=== PATIENT | female | born 1930 | race Asian ===

== ENCOUNTER 2016-06-30 11:17 | Inpatient (IN) | payer MEDICARE, OTHER ==
[2016-06-30] VITALS (8 sets, daily range): BP systolic 87–112; BP diastolic 49–81; PULSE 70–110; RESP 14–23; O2SAT 92–98
[~2016-06-30] VITALS: Ht 152.4 cm; Wt 52.8 kg
[~2016-06-30 11:17] MED LIST: ACET325T51 PO; ATOR20TA PO; Aspirin-Expunged Drug, Do Not Renew! PO; METO-272 PO
--- NOTE | 2016-06-30 11:17 | ED.REPORT ---
HPI-General Illness Date of Service Jun 30, 2016 ED Provider: Dr. Crenshaw Pt is an 85 year old female with a history of CVA last August, and a permeant indwelling Robbins catheter who presents to the ED with EMS with concerns for altered mental status that began earlier today. Per EMS she is conversive at baseline, but was found unresponsive today. Her catheter bag appears cloudy and there are feces coming out of the front of her diaper, as well as covering her extremities. She remains unresponsive. Nursing Notes Stated Complaint: SEPSIS Chief Complaint: AMS Nursing Notes Reviewed: Yes Allergies: Coded Allergies: No Known Allergies (Verified , 06/30/16) Scheduled Atorvastatin (Lipitor) 20 Mg Tablet 20 MG PO DAILY Calcium Polycarbophil (Fiber-Caps) 625 Mg Tablet 625 MG PO QAM Carboxymethylcellulos/Glycerin (Refresh Optive Gel Eye Drops) 1 %-0.9 % Drops.gel 1 GTT OP DAILY Metoprolol Tartrate (Metoprolol Tartrate) 50 Mg Tablet 50 MG PO BID Scheduled PRN Acetaminophen (Acetaminophen) 325 Mg Tablet 650 MG PO Q4H PRN PRN For Pain Diclofenac Gel (Voltaren Gel) 100 Gm Tube 1 APPLIC TOP QID PRN PRN For Pain General Time Seen by MD: 11:17 Chief Complaint Altered mental status Hx Obtained From: EMS Arrived By: Ambulance Sudden in Onset?: Yes Onset Occurred: Onset unknown Symptom Duration: Since onset Similar Sx Previous: Yes Past Medical History Past Medical History Reports: Cancer, Hypertension, Stroke Past Surgical History Colon resection Smoking History Never Smoker Social History Alcohol Use: Denies alcohol use Other Social History: Ambulatory Status Wheelchair Review of Systems Unable to Obtain ROS Mental status Full Review of Systems Constitutional: Reports: Fever Psychiatric: Reports: Change mental status Complete sys rev & neg: except as marked. Physical Exam Vital Signs Vital Signs Date Time Temp Pulse Resp B/P Pulse Ox O2 Delivery O2 Flow Rate FiO2 06/30/16 16:39 89 14 104/81 94 Room Air 06/30/16 13:25 37 21 93/57 98 Nasal Cannula 2 06/30/16 12:59 94 23 91/49 95 Nasal Cannula 2 06/30/16 12:31 93 20 87/60 97 Nasal Cannula 06/30/16 12:04 100 21 89/58 96 Nasal Cannula 3 06/30/16 11:18 39.3 110 22 111/66 92 Room Air Initial VS: Reviewed Head / Eyes: Atraumatic, Normocephalic, PERRL Neck: Supple, Non-tender, Full range of motion Alertness: Positive: Unresponsive Appearance / Presentation: Positive: Cachectic, Frail No fixed gaze Feces on her hand and coming out of the front of her diaper Indwelling Robbins catheter with dark brown, thick urine present in bag Febrile Contractures Diaphoretic Altered 3x 4cm Sacral decubitus ulcer, stage 3. Malodorous with purulent discharge and stool surrounding wound dressing ENT: Atraumatic, Airway patent, Pharynx NL Mouth: Positive: Mucous membranes dry Respiratory / Chest: Atraumatic, No respiratory distress, No rales, No rhonchi Tachypnic Cardiovascular: Regular rhythm, Heart sounds NL Heart Rate / Rhythm: Positive: Tachycardia Interpretation & Diagnostics Lab Results Interpretation Result Diagram: 06/30/16 1206 06/30/16 1151 Test 06/30/16 11:32 06/30/16 11:51 06/30/16 12:06 Urine Color Yellow (YELLOW) Urine Appearance Cloudy (CLEAR,HAZY) Urine pH 8.0 (5.0-8.0) Urine Specific [place] 1.010 (1.003-1.035) Urine Protein 30mg/dL (NEG,TRACE) Urine Glucose (UA) Negativemg/dL (NEGATIVE) Urine Ketones Negativemg/dL (NEGATIVE) Urine Occult Blood Trace (NEGATIVE) Urine Nitrite Positive (NEGATIVE) Urine Bilirubin Negative (NEGATIVE) Urine Urobilinogen Normalmg/dL (NORMAL) Urine Leukocyte Esterase Large (NEGATIVE) Urine RBC 3-10/hpf (0-2) Urine WBC >50/hpf (0-5) Urine Epithelial Cells Few/hpf (NONE-MOD) Urine Crystals None seen (NONE SEEN) Urine Bacteria Many/hpf (NONE-FEW) Urine Hyaline Casts None/lpf (NONE) Urine Granular Casts None seen (NONE SEEN) Urine Waxy Casts None seen (NONE SEEN) Urine Red Blood Cell Casts None seen (NONE SEEN) Urine White Blood Cell Casts None seen (NONE SEEN) Urine Mucus None seen (None Seen) Urine Trichomonas None seen (NONE SEEN) Urine Yeast None (NONE SEEN) Urinalysis Comment None Urine Culture Reflexed Indicated Sodium Level 143mEq/L (134-144) Potassium Level 3.4mEq/L (3.5-5.2) Chloride Level 104mEq/L (97-108) Carbon Dioxide Level 20mmol/L (18-29) Blood Urea Nitrogen 25mg/dL (8-27) Creatinine 1.37mg/dL (0.57-1.00) Estimat Glomerular Filtration Rate 53mL/min (>59) Glucose Level 128mg/dL (60-99) Calcium Level 8.0mg/dL (8.5-10.1) Magnesium Level 1.4mg/dL (1.6-2.6) Total Bilirubin 0.6mg/dL (0.0-1.2) Aspartate Amino Transf (AST/SGOT) 25U/L (0-50) Alanine Aminotransferase (ALT/SGPT) 10U/L (0-32) Alkaline Phosphatase 90U/L (25-165) Troponin T 0.024ug/L (0.0-0.011) Total Protein 5.9g/dL (6.4-8.4) Albumin 2.2g/dL (3.4-5.0) White Blood Count 27.1th/mm3 (3.8-10.1) Red Blood Count 4.03mil/mm3 (3.90-5.20) Hemoglobin 11.5g/dL (12.0-15.6) Hematocrit 35.0% (35.0-46.0) Mean Corpuscular Volume 86.8fL (81-100) Mean Corpuscular Hemoglobin 28.5pg (27.0-35.0) Mean Corpuscular Hemoglobin Concent 32.9% (32.0-37.0) Red Cell Distribution Width 15.9% (12.3-15.4) Platelet Count 357bil/L (150-400) Neutrophils (%) (Auto) 90% (40-74) Lymphocytes (%) (Auto) 1% (14-46) Monocytes (%) (Auto) 2% (4-12) Eosinophils (%) (Auto) 0% (0-5) Basophils (%) (Auto) 0% (0-3) Band Neutrophils % 7% (1-5) Procalcitonin 108.92ng/mL (See Comment) X-Ray Chest Interpretation Chest Xray Interpretation: IMPRESSION: Decreased lung volumes. Increased degree of right minor fissural thickening may suggest evolving congestive heart failure. Dictated by: Russel Timmons M.D. on 06/30/2016 at 12:22 Interpretation / Wet Read by: Interpret - Radiologist CT Abd / Pelvis Interpretation IMPRESSION: 1. Soft tissue ulcer lies superficial to the posterior sacrum and does not appear to extend to the bony cortex. If there is persistent clinical suspicion for early sacral osteomyelitis, pre- and post contrast bony pelvis MRI may be considered for more sensitive evaluation. 2. Large amount of stool within the rectal vault may suggest fecal impaction. 3. Bilateral L5 pars defects, with grade 1 L5-S1 spondylolisthesis. 4. Nonacute right obturator ring healed fractures, age indeterminate moderate T12 vertebral body anterior wedge compression fracture, and nonacute mild L4 anterior wedge compression fracture. Dictated by: Russel Timmons M.D. on 06/30/2016 at 14:10 Interpretation / Wet Read by: Interpret - Radiologist Re-Eval/Medical Decision Med Decision/Clinical Course Severe sepsis from UTI with acute kidney injury and mental status changes, additionally has a sense of constipation and sacral decubitus ulcers with stool in them. Vancomycin and Zosyn are given. 3 L normal saline bolus. Blood pressure has improved after this. Patient appears profoundly dehydrated, stroke was considered however it seems that she has a nonfocal neurologic exam in terms of new neurologic deficits and after fluid resuscitation has become more awake and alert. Source of Hx: Old records, EMS, Family Time of Eval: 11:59 Re-Evaluation/Progress Note: Pt is rechecked, she remains unresponsive. Her is present, and reports that she first became unresponsive this morning. Time of Eval: 12:29 Re-Evaluation/Progress Note: Pt is rechecked, she is becoming increasingly responsive. She turns her head and acknowledges me when her name is said. Her eyes open spontaneously. Time of Eval: 12:55 Re-Evaluation/Progress Note: Pt is rechecked, her vitals remain stable. Her is informed of her labs and imaging results and the plan to transer her to an acute care facility. He understands and agrees, all questions are addressed. Time of Eval: 14:31 Re-Evaluation/Progress Note: Pt is rechecked and her is informed of the lack of beds at [facility]. He understands and agrees, all questions are addressed. Time of Eval: 16:33 Re-Evaluation/Progress Note: Pt is rechecked, is informed of the plan to admit her to the hospital at this time. All questions are addressed. Consultation #1: Call Returned at: 15:20 Note: Spoke with Dr. Guzman from [facility] who reports that she is not able to accept this patient and this time. Consultation #2: Referral / Consult Name: Tim Carnes MD Consulted With: Hospitalist Call Returned at: 16:33 Car Sweeper: Will see patient, Agrees with plan, Accepts admit Counseled Regarding: Diagnosis, Lab results, Need for admission Discharge & Departure Primary Impression: Septic shock Additional Impressions: UTI (urinary tract infection) Urinary tract infection type: site unspecified Hematuria presence: without hematuria Qualified Code: N39.0 - Urinary tract infection, site not specified Sacral decubitus ulcer Pressure ulcer stage: stage IV Qualified Code: L89.154 - Pressure ulcer of sacral region, stage 4 Fecal retention Constipation type: unspecified constipation type Qualified Code: K59.00 - Constipation, unspecified Hypomagnesemia Disposition: ADMITTED TO HOSPITAL Discharge Condition All VS Reviewed: Yes Condition: Stable Referrals: Cesar Rush MD (PCP) Crit Care Except Billable Proc Time Spent: 75-104 minutes Services Performed: Patient management by me, Time spent at bedside, Reviewing test results, Reviewing imaging, Discussing patient care, Documentation in record, Time with fam/surrogate, Other Critical Care Notes: See MDM Scribe Attestation Portions of this note were transcribed by Monik Matthews. I, Dr. Crenshaw personally performed the history, physical exam and medical decision-making; I reviewed and confirmed the accuracy of the information in the transcribed note. Signed by: Nick Coffey, 06/30/2016 [id number]. copies to: Cesar Rush MDMilad Mata Jun 30, 2016 11:17 KIM MATTHEWS Jun 30, 2016 11:30
[2016-06-30] MEDS ORDERED: 0.9% Sodium Chloride 1,000 ML IV ONE (11:24)
[2016-06-30] MEDS ORDERED: 0.9% Sodium Chloride 500 ML IV ONE ×2 (11:25→14:35)
[2016-06-30] MEDS ORDERED: Piperacillin-Tazo 3.375 Gm Inj 3.375 GM in Dextrose 5% Minibag Plus 50 ML IV ONE (12:00)
[2016-06-30 12:07] LABS: APPEARANCE,URINE CLOUDY (CLEAR,HAZY); COLOR,URINE YELLOW (YELLOW)
[2016-06-30 12:08] LABS: OCCULT BLOOD,URINE TRACE (NEGATIVE); UROBILINOGEN,URINE NORMAL (NORMAL)
[2016-06-30 12:14] LABS: EOSINOPHILS % (AUTO) 0 % (0-5); Mean Corpuscular Hemoglobin 28.5 pg (27.0-35.0); Mean Corpuscular Volume 86.8 fL (81-100); Platelet Count 357 bil/L (150-400)
--- NOTE | 2016-06-30 12:24 | DRSVH ---
PROCEDURE: X-RAY CHEST ONE VIEW, PORTABLE ([id number]) INDICATIONS: 85 year-old female with hypoxia and fevers. TECHNIQUE: One view of the chest was acquired. COMPARISON: [facility], CR, XR CHEST 1VW (PORTABLE), 05/25/2016, 12:41. [facility], CR, XR CHEST 2VW, 05/16/2016, 14:54. [facility], CR, XR CHEST 1VW (PORTABLE), 09/05/2015, 17:09. FINDINGS: Surgical changes and devices: None. Lungs and pleura: No pleural effusions or pneumothorax. Lungs are clear, with increased degree of r ight minor fissural thickening. Lung volumes are decreased, with bronchovascular crowding. Mediastinum: Mediastinal contours appear normal. Heart size is normal. There is aortic atheroscler osis. Bones and chest wall: No suspicious bony lesions. Overlying soft tissues appear unremarkable. IMPRESSION: Decreased lung volumes. Increased degree of right minor fissural thickening may suggest e volving congestive heart failure. Dictated by: Russel Timmons M.D. on 06/30/2016 at 12:22 Approved by: Russel Timmons M.D. on 06/30/2016 at 12:22
[2016-06-30] MEDS ORDERED: Vancomycin 1 Gm/200 mL D5W Premix IV ONE (12:40)
[2016-06-30 12:43] LABS: TROPONIN T 0.024 ug/L (0.0-0.011)
[2016-06-30 12:48] LABS: BASOPHILS % (AUTO) 0 % (0-3); MONOCYTES % (AUTO) 2 % (4-12); NEUTROPHILS % (AUTO) 90 % (40-74)
[2016-06-30 12:54] LABS: Magnesium 1.4 mg/dL (1.6-2.6)
[2016-06-30] MEDS ORDERED: Sodium Chloride LOK Flush 10 mL Syringe IVFLUSH PRN ×2 (12:55)
[2016-06-30] MEDS: 0.9% Sodium Chloride 1,000 ML IV SCH ×3 (13:24→18:23)
--- NOTE | 2016-06-30 14:11 | DRSVH ---
PROCEDURE: CT ABDOMEN AND PELVIS WITHOUT CONTRAST ([id number]) INDICATIONS: 85 year-old female with urinary tract infection, sepsis, and sacral decubitus ulcer. TECHNIQUE: Noncontrast 5 mm thick sections acquired from the diaphragms to the symphysis. 5 mm coronal and sagi ttal reformats were then performed. For radiation dose reduction, the following was used: automated exposure control, adjustment of mA and/or kV according to patient size. COMPARISON: None. FINDINGS: Image quality: Excellent. ABDOMEN: Lung bases: There is mild cardiomegaly. There is scattered bibasilar atelectasis. Solid organs: Liver and spleen are normal in size. Gallbladder wall thickness is normal. Pancreas is normal in contours. No adrenal nodules. Kidneys are normal in size, without hydronephrosis or ne phrolithiasis. Peritoneum and bowel: Unenhanced bowel loops demonstrate normal wall thickness and caliber. Right l ower quadrant surgical clips are present, presumably from remote appendectomy. There is moderate stoo l throughout the distal colon, with large amount of stool in the rectal vault. Rectosigmoid bowel danny stomotic yoav are present. No free fluid or air. Nodes and vessels: No retroperitoneal or mesenteric adenopathy by size criteria. Aorta and inferior vena cava are normal in caliber, with mild aortoiliac atherosclerosis. Miscellaneous: No ventral hernias. PELVIS: Genitourinary: The bladder is decompressed by a Robbins catheter. Uterus is normal in size. Postmenopau neha ovaries are unable to be seen in the absence of contrast. Miscellaneous: No inguinal hernias or adenopathy. On axial image 67, 2.4 cm wide soft tissue ulcer l ies superficial to the posterior sacrum. Bones: No suspicious bony lesions. No jhon bony destruction or erosions. Nonacute right obturator r ing fractures are present. There is age indeterminate moderate T12 vertebral body anterior wedge comp ression fracture, and mild nonacute L4 anterior wedge compression fracture. Bilateral L5 pars defects are present, with grade 1 L5-S1 spondylolisthesis. Coronal images demonstrate mild lumbar spine levo scoliosis. IMPRESSION: 1. Soft tissue ulcer lies superficial to the posterior sacrum and does not appear to extend to the jina ny cortex. If there is persistent clinical suspicion for early sacral osteomyelitis, pre- and post co ntrast bony pelvis MRI may be considered for more sensitive evaluation. 2. Large amount of stool within the rectal vault may suggest fecal impaction. 3. Bilateral L5 pars defects, with grade 1 L5-S1 spondylolisthesis. 4. Nonacute right obturator ring healed fractures, age indeterminate moderate T12 vertebral body ante rior wedge compression fracture, and nonacute mild L4 anterior wedge compression fracture. Dictated by: Russel Timmons M.D. on 06/30/2016 at 14:10 Approved by: Russel Timmons M.D. on 06/30/2016 at 14:10
[2016-06-30] MEDS ORDERED: Magnesium Sulf 4 Gm/100 mL H2O 4 GM in IV Premix 1 EACH IV ONE (15:05)
--- NOTE | 2016-06-30 15:41 | DRSVH ---
PROCEDURE: X-RAY PICC LINE PLACEMENT BY NURSE ([id number]) INDICATIONS: 85 year-old female in septic shock with sacral decubitus ulcer. COMPARISON: None. FINDINGS: PICC was placed by the intravenous therapy team from the left side. Fluoroscopic spot petty m demonstrates tip of PICC in the lower superior vena cava. IMPRESSION: Tip of PICC lies within the lower superior vena cava. Dictated by: Russel Timmons M.D. on 06/30/2016 at 15:39 Approved by: Russel Timmons M.D. on 06/30/2016 at 15:39
[2016-06-30] MEDS ORDERED: Norepineph 8,000 mCg/250 mL NS 8,000 MCG in IV Premix 1 EACH IV SCH (16:25)
[2016-06-30] MEDS ORDERED: Ondansetron 2 mg/mL 2 mL Inj IVPUSH PRN (16:40)
[2016-06-30] MEDS ORDERED: Alum-Mag Hydrox-Simeth 30 mL Suspension PO PRN ×2 (16:40→17:25)
[2016-06-30] MEDS ORDERED: DICL100G8 TOP (17:03)
[2016-06-30] MEDS ORDERED: METO50TA3 PO (17:03)
[2016-06-30] MEDS ORDERED: CARB10DR2 OP (17:03)
[2016-06-30] MEDS ORDERED: CALC625T83 PO (17:03)
[2016-06-30] MEDS ORDERED: Norepineph 8,000 mCg/250 mL NS 8,000 MCG in IV Premix 1 EACH IV PRN (17:22)
[2016-06-30] MEDS ORDERED: Polyethylene Glycol (PEG) 17 Gm Powder PO PRN (17:25)
[2016-06-30] MEDS ORDERED: Senna-Docusate 8.6-50 mg Tablet PO PRN (17:25)
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
--- NOTE | 2016-06-30 18:27 | ABG ---
DateTimeAnalyzed 18:22:00 -_ pH ____7.436 - 7.350 7.450 pCO2 ___29.5__ -mmHg 35.0 45.0 pO2 ___75.9__ -mmHg 70.0 100 HCO3- ___19.5__ -mmol/L 22.0 26.0 ABE ___-3.5__ -mmol/L -2.0 2.0 tHb ____9.1__ -g/dL 12.0 18.0 O2Hb ___93.6__ -% 95.0 COHb ____0.9__ -% 1.5 MetHb ____1.0__ -% 0.4 1.5 sO2 ___95.4__ -% FIO2 ___21.0__ -% Drawn By gj - Date/Time Notified____ 18:27:00 -_ Liter_Flow ____2.5__ -L/min Oxygen Device 1 __CANNULA - Notified By gj - Notified Whom ____LEAKE - B 760 -mmHg tO2 ___12.0__ -Vol% [place] test _Positive -
[2016-06-30] MEDS: Linezolid Inj 600 MG in IV Premix 1 EACH IV SCH (18:40)
[2016-06-30] MEDS ORDERED: 0.9% Sodium Chloride 500 ML IV PRN (19:40)
[2016-06-30] MEDS ORDERED: levoFLOXacin Inj 750 MG in IV Premix 1 EACH IV SCH (20:00)
[2016-06-30] MEDS: Acetaminophen IV 1,000 MG in IV Premix 1 EACH IV PRN (20:16)
--- NOTE | 2016-06-30 20:33 | NUR ---
CCU admission note Pt arrived from ER to CCU # 2020 approx at 1745. Pt is drowsy but arousable to verbal stimuli. Pt is hypotensive. MAP 58-60. MAP goal per Dr. Murray >65. IV boluses initiated. CVP =2-3. Levophed gtt initiated to maintain MAP >65. UOP = 400. Pt had moderate soft formed stool. Skin: PU wounds noted (pre existing wound). Wound in sacrum area is open approx size of golf ball. Wound was covered with C/D/I Mepilex Border dressing. Also PU wound to right hip noted with skin abrasion to right hip. Also both were covered with Mepilex Border dressing. Pt is bed bound and spouse is her caregiver with home health visits. Pt was covered in feces upon arrival to ER (Per ER repot). Seb and both aware of pts leaving situation. Will consult director of social services in am. Spouse and daughter at the bedside providing support and comfort.
[2016-06-30] MEDS ORDERED: KCl 40 mEq/100 mL Premix (K 3 - 3.7 & Creat < 2) IV ONE (21:10)
[2016-06-30] MEDS: Meropenem Inj 1,000 MG in IV Premix 1 EACH IV SCH (21:56)
[2016-06-30] MEDS: Heparin 5,000 Unit/mL Inj SUBQ SCH (23:57)
[2016-07-01] VITALS (10 sets, daily range): BP systolic 106–133; BP diastolic 57–88; PULSE 69–92; RESP 16–21; O2SAT 96–100
[2016-07-01] MEDS: 0.9% Sodium Chloride 1,000 ML IV SCH (01:52)
[2016-07-01 03:34] LABS: BASOPHILS % (AUTO) 0.1 % (0-3); EOSINOPHILS % (AUTO) 0.1 % (0-5); MONOCYTES % (AUTO) 2.5 % (4-12); Mean Corpuscular Hemoglobin 27.9 pg (27.0-35.0); Mean Corpuscular Volume 86.8 fL (81-100); NEUTROPHILS % (AUTO) 92.8 % (40-74); Platelet Count 295 bil/L (150-400)
[2016-07-01 03:50] LABS: INR 1.38 ratio
[2016-07-01 04:12] LABS: Magnesium 2.2 mg/dL (1.6-2.6); Phosphorus 1.8 mg/dL (2.5-4.9)
[2016-07-01] MEDS ORDERED: Calcium GLUCO 10% (Gm) 1 Gm/10 mL 50 mL Inj IV ONE (04:45)
[2016-07-01] MEDS ORDERED: Calcium GLUCO 10% (Gm) Inj 2 GM in Dextrose 5% 100 ML IV ONE (04:45)
[2016-07-01] MEDS: Dextrose 5% 0.45% NaCl 1,000 ML IV SCH ×3 (04:50→15:50)
[2016-07-01] MEDS ORDERED: Potassium Phos (mMol) Inj 15 MMOL in Dextrose 5% 250 ML IV ONE (04:50)
[2016-07-01] MEDS: Linezolid Inj 600 MG in IV Premix 1 EACH IV SCH (05:31)
--- NOTE | 2016-07-01 05:34 | NUR ---
cvp/pressor/neuro pt moaning with mumbled words at beginning of shift, moaning with turning, iv tylenol given and effective for generalized aches and pains, at approx [id number] pt starting to wake up more and speech much clearer, pt oriented to self and place, not year, pt answers appropriately to assessment questions, heydi weakly, pt tends to turn to left side, pt's arms and legs have weak movement but pt tends to keep them curled up, full bed bath given, pt on p500 MALLORY bed, scd's on, pt turned routinely, cvp =8-9, able to wean levophed gtt down from 0.8mcg/kg/min to 0.3mcg/kg/min, good uop per f/c, home catheter replaced at beginning of shift, pt incontinent of sml brown bm's, checked and changed regularly, right hip and sacrum with pressure sores, each swabbed with swabs specified by lab, swabs labeled and sent to lab, mepilex dressings on buttocks and right hip, right hip pressure sore approximately a size of a quarter, sacral wound approximately 2 inches long but approximately 1.5 inches wide--also has an odor, sml amount of serousang drainage, aware of wounds/dressings/assessment, wound care ordered for today, calmoseptine cream applied to josé luis area, pt npo, bt present, no c/o nv, tele- sr, denies cp ls- clear t/o, denies sob, pt on two liters o2 per nc t/o night with sats upper 90's until this am pt requesting o2 off and sats still upper 90's on ra, resp rate upper teens to low 20's, left picc intact, aware this am of pt's bc results and what antibiotics pt has had, aware of am lab results, see orders, ivf changed to d5 1/2 at 100ml/hr, calcium rider given, k/phos rider given, pt's and daughter here upon admit, pt's went home after pt settled and stable, pt's daughter left little while after pt's , pt's daughter expressed concern about pt's heavy amount of care at home, she expressed concern that pt needed more care then her father is able to give the pt at home, will pass info on this am, see ccu flow sheet, plan:bp support/sepsis treatment,
[2016-07-01] MEDS: Heparin 5,000 Unit/mL Inj SUBQ SCH ×2 (08:22→17:04)
[2016-07-01] MEDS: Acetaminophen IV 1,000 MG in IV Premix 1 EACH IV PRN (08:23)
[2016-07-01] MEDS ORDERED: Vancomycin Dose per Pharmacist XX SCH (08:30)
[2016-07-01] MEDS: Meropenem Inj 1,000 MG in IV Premix 1 EACH IV SCH ×2 (09:15→23:10)
[2016-07-01 10:03] LABS: Phosphorus 2.8 mg/dL (2.5-4.9)
--- NOTE | 2016-07-01 11:22 | PCM.PNMED ---
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 emergency department via EMS for unresponsiveness and obtunded. Hospital day #2 Overnight: She was weaned off of norepinephrine. Telemetry overnight: Sinus rhythm, heart rate 80-90's, PAC's and PVC's. The patient is resting in bed comfortably and in no acute distress. She is alert and conversant. She denies headache, cough, chest pain, shortness of breath, nausea, vomiting, fever, chills, constipation or diarrhea. The patient has been voiding via Robbins catheter with good urine output. The patient is eliminating without difficulty. She is essentially bedbound. Physical therapy has been ordered and will see the patient today. . Exam Vital Signs Vital Sign - Last Date Time Temp Pulse Resp B/P Pulse Ox O2 Delivery O2 Flow Rate FiO2 07/01/16 08:30 Supplement Oxygen 07/01/16 08:30 36.7 88 20 108/82 96 07/01/16 04:00 2.00 Intake and Output 06/30/16 06/30/16 07/01/16 Cumulative From/Thru 15:00 23:00 07:00 06/30/16 11:18 - 07/01/16 06:22 Intake Total 4000 ml 2400 ml 3998 ml 72261 ml Output Total 1200 ml 750 ml 1950 ml Balance 4000 ml 1200 ml 3248 ml 8448 ml Intake Oral 0 ml 0 ml IV Total 4000 ml 2400 ml 3998 ml 53676 ml Output Urine Total 1200 ml 750 ml 1950 ml # Bowel Movements 2 3 5 Exam General: Elderly thin cachectic female lying in bed and in no acute distress HEENT: Normocephalic, atraumatic. External ears without defect. Pupils equal, round, and reactive to light. Anicteric sclerae. Conjunctivitis. Mucus membranes dry. Dentures. Neck: No lymphadenopathy or thyromegaly. Cardiovascular: Regular rate and rhythm with no murmurs, rubs, or gallops appreciated. Pulmonary: Clear to auscultation bilaterally with no crackles, wheezes, or rhonchi. Normal respiratory effort with no use of accessory muscles. Abdomen: Soft, suprapubic tenderness, nondistended, bowel tones hypoactive. No hepatosplenomegaly or masses appreciated. Genitourinary: Chronic indwelling Robbins catheter changed (06/30/15). Extremities: No clubbing, cyanosis, or edema. Skin: Normal temperature and texture; Dry skin. Chronic decubitus ulcers with dressing covering. Neurological: Alert but somewhat confused. . IVs and Medications Medications Reviewed: Medications were reviewed in detail Lab and Diagnostics Item Value Date Time Procalcitonin 108.92 ng/mL 06/30/16 1206 Procalcitonin 86.92 ng/mL 07/01/16 0310 Item Value Date Time Magnesium Level 2.2 mg/dL 07/01/16 0310 Total Bilirubin 0.5 mg/dL 07/01/16 0310 Aspartate Amino Transf (AST/SGOT) 26 U/L 07/01/16 0310 Alanine Aminotransferase (ALT/SGPT) 8 U/L 07/01/16 0310 Alkaline Phosphatase 82 U/L 07/01/16 0310 Total Protein 4.8 g/dL L 07/01/16 0310 Albumin 1.8 g/dL L 07/01/16 0310 Prealbumin 6 mg/dL L 06/30/16 1151 Item Value Date Time Phosphorus Level 1.8 mg/dL L 07/01/16 0310 Phosphorus Level 2.8 mg/dL 07/01/16 0930 Item Value Date Time Calcium Level 6.6 mg/dL *L 07/01/16 0310 Calcium Level 7.3 mg/dL L 07/01/16 0930 Result Diagram: 07/01/16 0310 07/01/16 0930 Microbiology Blood culture 2 preliminarily growing gram variable rods with identification and sensitivities to follow. Urine culture preliminarily growing gram-negative rods with identification and sensitivities to follow. Influenza screen negative. MRSA screen pending. Wound culture and Gram stain pending. . X-Rays, CTs and MRIs X-RAY CHEST ONE VIEW, PORTABLE IMPRESSION: Decreased lung volumes. Increased degree of right minor fissural thickening may suggest evolving congestive heart failure. Dictated by: Russel Timmons M.D. on 06/30/2016 at 12:22 Approved by: Russel Timmons M.D. on 06/30/2016 at 12:22 CT ABDOMEN AND PELVIS WITHOUT CONTRAST IMPRESSION: 1. Soft tissue ulcer lies superficial to the posterior sacrum and does not appear to extend to the bony cortex. If there is persistent clinical suspicion for early sacral osteomyelitis, pre- and post contrast bony pelvis MRI may be considered for more sensitive evaluation. 2. Large amount of stool within the rectal vault may suggest fecal impaction. 3. Bilateral L5 pars defects, with grade 1 L5-S1 spondylolisthesis. 4. Nonacute right obturator ring healed fractures, age indeterminate moderate T12 vertebral body anterior wedge compression fracture, and nonacute mild L4 anterior wedge compression fracture. Dictated by: Russel Timmons M.D. on 06/30/2016 at 14:10 Approved by: Russel Timmons M.D. on 06/30/2016 at 14:10 . 12-lead ECG EKG: Sinus rhythm, heart rate 72, left axis, prolonged QTC otherwise normal intervals, early R-wave progression, no pathological Q waves or acute ischemic changes such as ST elevation or depression. . 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 emergency department via EMS for unresponsiveness and obtunded. Hospital day #2 1. Severe sepsis with shock, present on admission. Resolved. - SIRS criteria met: Febrile, temperature 39.3. Tachycardic, pulse 110. Tachypneic, respiratory rate 22. Lactic acid 4.3. Source urine and skin with acute kidney injury. - Early goal-directed therapy met including IV fluid resuscitation and broad- spectrum antibiotic coverage as below problem #2. - See plan below. 2. Acute bacteremia, present on admission. Active. - Likely secondary to acute urinary tract infection and/or chronic stage IV decubitus ulcer. - Continue with linezolid 600 mg every 12 hours , meropenem 1g every 8 hours, and levofloxacin 750 mg every 24 hours pending ID recs. Received vancomycin 1 and Zosyn 1 in the ED. - Consulted ID, Dr. Calderón, who will see her today. We appreciate his time and recommendations. 3. Chronic decubitus ulcers, present on admission. Active. - CT abdomen and pelvis without contrast revealed soft tissue ulcer lies superficial to the posterior sacrum and does not appear to extend to the bony cortex, as above. 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 Several other ulcers with dressings in place. - Antibiotics as below in problem #4 and pending ID recs. - Wound culture and Gram stain obtained and pending. - Consulted wound care. We appreciate their time and recommendations. - Consulted ID, Dr. Calderón, who will see her today. We appreciate his time and recommendations. - Consulted surgery, Dr. Linton, who will see the patient today. We appreciate his time and recommendations. 4. Acute UTI, secondary to infected chronic indwelling Robbins catheter, present on admission. Active. - Patient presented obtunded and encephalopathic. - Patient was hypotensive and responded to fluid resuscitation. Norepinephrine was initiated for pressure support last night 1999 and was discontinued at 0500. - Pro-calcitonin 108.92. We will continue to trend. - Lactic acid initially elevated at 4.3. - Leukocytosis of 27.1 with bandemia. Continue to monitor daily. - Urinalysis preliminarily growing gram-negative rods with identification and sensitivities to follow. - Blood cultures x 2 preliminarily growing gram variable rods with identification and sensitivities to follow. - Started with linezolid 600 mg every 12 hours , meropenem 1g every 8 hours, and levofloxacin 750 mg every 24 hours. Received vancomycin 1 and Zosyn 1 in the ED. - Replaced chronic indwelling Robbins catheter with new catheter with date and time marked. 5. 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 Active. - Ordered arboriculturist consultation. - Ordered physical therapy consultation. - Continue to encourage PO intake. - Start vitamin daily. - Poor wound healing, specifically sacral decubitus stage IV likely requiring debridement. 6. Acute kidney injury, present on admission. Resolved. - Likely secondary to prerenal azotemia and UTI. - Continue IV fluids with NS at 100 mL/hr. - Avoid nephrotoxic agents. - Continue to monitor creatinine and urine output daily. 7. Multiple electrolyte abnormalities, present on admission. Active. - Patient received magnesium 4 g IV 1, KCl 40 mEQ x1, KPO4 15 mmol x1. 8. Acute encephalopathy, secondary to acute infection, present on admission. Resolved. - Secondary to infection. Patient has no history of seizures and there was no recent trauma. - ABG was unrevealing. 9. Fecal impaction, acuity unknown, present on admission. Resolved. - CT abdomen and pelvis shows moderate amount of stool in the rectal vault likely indicative of fecal impaction, as above. - Patient spontaneously had several BM throughout the night. Chronic problems: Hypertension, chronic. - Continue metoprolol tartrate 25 mg twice a day. Hyperlipidemia, chronic. - Continue atorvastatin 20 mg daily at bedtime. CVA with residual left-sided deficit, chronic. - Ordered speech therapy and physical therapy who will see the patient today. History of colon cancer status post colon resection. Presumed stable. PRN antiemetics: Zofran and Maalox. PRN bowel regimen: Senna and MiraLAX. PRN analgesics: Tylenol Patient is admitted under inpatient status with expected length of stay greater than 2 midnights due to severity of presenting symptoms, risk of adverse event, and complexity of treatment plan. . VTE Mechanical Devices: Intermittant Pneumatic CD Attending Statement The patient was seen and examined together with Dr. Murray on 07-01-16 and I agree with the history, exam and plan as outlined in the note above. Vy Murray DO Jul 01, 2016 11:22 Tim Carnes MD Jul 02, 2016 16:54
--- NOTE | 2016-07-01 12:11 | NUR ---
Palliative Care Palliative Care received verbal order from Dr Murray 07/01/16 to assist with goals of care. 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 She was admitted 06/30/16 for unresponsiveness and obtunded. Cornel Serna () [phone], Isabell Mott (daughter) [phone] Palliative Care will see patient 07/02/16. Santa Tsai
--- NOTE | 2016-07-01 13:40 | CONS ---
[address] [address] CONSULTATION REPORT PATIENT: RONNA MENDEZ : 1930 MR#: [id number] ADMIT: 06/30/2016 JOB ID: [id number] DATE OF SERVICE: 07/01/2016 INFECTIOUS DISEASE CONSULTATION: I thank Dr. Murray for this timely consult. DATE OF SERVICE: REASON FOR CONSULTATION: Septic shock secondary to gram-negative bacteremia in a patient with profound malnutrition, debility and decubitus ulcers. HISTORY OF PRESENT ILLNESS: The patient is an unfortunate 85-year-old woman who has been in failing health for quite some time secondary to multiple medical problems. In August of this year, she suffered a cerebrovascular accident and spent considerable time in a retirement facility. She apparently was doing fairly well but she and her decided that she should come home and in March this year she left the retirement facility and returned to the family home where she lives with her very elderly and also quite debilitated . According to the daughter who was in the room this morning when we examined the patient, since she came home in March she has had a tremendous weight loss associated with being essentially bed-bound and the development of decubitus ulcers. The overall situation seemed to be deteriorating and her father was unable to provide the turning and other frequent care needed for such an ill patient but the Home Health care was apparently quite inconsistent and there were not others available to shrimp picker these tasks as needed. In any event, yesterday the patient was admitted with fever, diminished mental status and leukocytosis. It was unclear if she was septic from either an infected decubitus ulcer or possibly urinary source as she has also had a Robbins catheter over the past several weeks. Since her admission yesterday, the patient has been vigorously hydrated and given appropriate antibiotics. With this regimen she has improved considerably with improvement in her mental status as well as her overall hemodynamics. ID consultation is requested regarding her high-grade bacteremia and to help understand the source of this infection. PAST MEDICAL HISTORY: 1. History of cerebrovascular accident August 2015. Note that this cerebrovascular accident was initially evaluated in our ED before she was discharged and it was found to be an acute cerebellar hemorrhage. It was near the midline. 2. History of colon cancer with resection. 3. Chronic indwelling Robbins for at least the last couple months. 4. Hyperlipidemia. 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 She currently lives at home with her , but as noted, recently resided in a retirement facility until March. She is a nonsmoker, nondrinker. FAMILY HISTORY: Positive for gastric carcinoma and suicide. REVIEW OF SYSTEMS: Is a little bit difficult as the patient's Israeli is not completely fluent, but she denies headaches, sore throat, significant cough, shortness of breath, chest pain, nausea, vomiting, diarrhea or dysuria. The patient actually denies pain at the site of her decubs as well. PHYSICAL EXAMINATION: Reveals a very chronically ill and debilitated appearing woman. Her current temperature 36.7, pulse 88, respiratory rate 20, blood pressure 108/82. She is not on vasopressor agents and she is saturating reasonably well on nasal oxygen. When first admitted yesterday around noon, her temperature was 39.3, though she has been afebrile ever since. Her current BMI is 22, and her weight 52 kg. The patient is alert and able to give limited amounts of history, though as mentioned, her Israeli is not perfect despite her long residence in the [facility]. Examination of the head reveals no evidence of trauma. The eyes are without conjunctivitis or scleral icterus. Oral cavity essentially benign. Neck without notable adenopathy. Lungs fairly clear though the patient is not taking deep breaths. Cardiac tones 2/6 murmur heard best in the aortic area. Abdomen soft and nontender without organomegaly. She has a Robbins which is chronic. Her dressings were removed and her wounds carefully inspected. On the more lateral aspect of the right buttock, she has two stage 2 decubitus ulcers which do not appear to be infected. In the mid line coccygeal area, there is a deeper stage 3 ulcer with some slough and some areas of foul odor. This was cultured and it was noted with the probe tip that there was some undermining of this ulcer. The extremities are somewhat wasted, but no obvious skin breakdown. The heels were carefully inspected and there are no ulcerations though there is some bogginess over the heels bilaterally. The patient does not have peripheral edema. It appears she has been nonambulatory for a period of time. LABORATORIES: Include a white count 28,000 with left shift. Creatinine 0.43. LFTs are normal. Procalcitonin was an amazing 111 on admission. Today it is 87. Urinalysis was packed with white cells. The urine and blood are growing a non lactose staffing branch manager organism which is indole negative meaning it is not E. coli. A hip culture was just sent. A MRSA screen is pending and a rapid flu screen negative. IMAGING: Includes an abdominal pelvic CT scan which showed a great deal of stool due to fecal impaction. The decubitus ulcer on the coccyx is seen. It does not appear to extend into the bone. Also noted, of interest, are vertebral body compression fractures at T12 and L4. The chest x-ray showed decreased lung volumes and possible mild CHF. IMPRESSION: This is a difficult case of a woman who about nine months ago had a cerebrovascular accident. It sounds as though since that time she has become increasingly debilitated and has spent a considerable period in a SNF before her took her home in March. He has been unable to provide the necessary level of care it sounds like, because of his many medical problems and inability to do heavy lifting or turn her. Having spent much of the time in bed and apparently on her right side, she has developed multiple decubitus ulcers including one which is more or less in the midline and is certainly stage 3 and bordering on a stage 4 ulcer. This ulcer appears to me to be minimally infected as I do not see a great deal of purulence or odor, but there is certainly a possibility it is infected. It seems more likely her sepsis syndrome is due to the positive blood and urine cultures and is related to her indwelling Robbins. Her overall nutrition seems extremely poor and it would appear that the patient's overall health is failing. If she is to improve and survive all this, it would be necessary for her get into an environment where she can have frequent position changes, excellent wound management and much improved nutrition. The other option, of course, would be to consider hospice at this point. RECOMMENDATIONS: 1. Will stop other antibiotics and continue with meropenem alone for the gram-negative rods found in the blood and the urine. 2. I would strongly consider a General Surgery consult to see if the sacral decubiti need to be debrided. 3. The wound management team has been consulted and I completely agree. 4. ID will continue to closely follow with you. 5. This case discussed in detail at the bedside with the daughter as well as with the nurse. Thank you very much for this timely consult.
[2016-07-01] MEDS ORDERED: Potassium Chloride 40 mEq/100 mL Premix IV ONE ×2 (13:51→14:47)
--- NOTE | 2016-07-01 14:25 | NUR ---
Evaluation completed. Please go to "Notes" then click on "Assessments and Notes" (bottom left corner of screen). Then select appropriate discipline tab on top of screen.
[2016-07-01] MEDS: Artificial Tears 15 mL Ophthalmic Solution BOTH_EYES SCH (14:53)
--- NOTE | 2016-07-01 14:54 | NUR ---
P: Alteration in Neuro status I: Pt more awake and alert and oriented. PT had pt up to bedside to christinee. Swallow evaluation done. Stim diet, crushed meds and ice chips. Wound care here and dressings changed. Coccyx culture sent. Incontinent of BM x 3. Turned Q 2 hours from side to side. P500 bed. Left PICC patent with IV fluid infusing without difficulty. K-rider 80 meqs infusing per order. Family at bedside. Updated family on pt's condition and plan of care. Room air with sats stable VSS. NSR. E: Stable S: Frequent rounding. Family at bedside.
--- NOTE | 2016-07-01 14:57 | NUR ---
Wound Care Wound evaluation order received, pt seen at bedside. 85 yo female admitted with Septic shock secondary to gram-negative bacteremia, patient is also with profound malnutrition, debility and decubitus ulcers. Patient had been seen multiple times at the wound center since her last hospital admission. Today she presents with a stage 4 pressure injury of her sacrum measuring 5.7 cm x 3.5 cm x 0.6 cm, currently bone is covered but the ligaments are visible in the granulation bed., wound is undermined about 1.5 cm circumferentially, no tunneling, no necrotic tissue, drainage is moderate and serous. Redressed this wound with Aquacel Ag and mepilex adhesive foam. There is a healing stage 3 Pressure injury at her right hip which measures 1.4 cm x 2 cm x 0.1 cm and a superficial stage 2 at her hip just above the other approx 1 cm in diameter. These were dressed with mepilex adhesive foam dressings. Pt is in sidelying, of note patient was incontinent of stool during assessment, will need dressings changed on a PRN basis for soiling. I know that last hospitalization wanted to take patient home with home health services, recommend SNF on discharge if family accepting.
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
--- NOTE | 2016-07-01 21:11 | CONS ---
[address] [address] CONSULTATION REPORT PATIENT: RONNA MENDEZ : 1930 MR#: [id number] ADMIT: 06/30/2016 JOB ID: [id number] DATE OF SERVICE: 07/01/2016 CHIEF COMPLAINT AND INDICATION: Dr. Murray has asked me to see this 85-year-old woman regarding pressure sores on her sacrum. The patient was admitted on the 2nd, yesterday evening, with pressure sores. 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 She has been [facility] and is currently in the hospital and was seen earlier today by the product marketing specialist with dressing changes applied. As well, within the past 24 hours she was seen in consultation by Dr. Calderón who recommended a general surgery evaluation for consideration of debridement of her sacral pressure sore. PAST MEDICAL HISTORY: As above. History of colon cancer status post resection 2004, history of SBO, hyperlipidemia, osteoarthritis. MEDICATIONS: See med list. This includes metoprolol, atorvastatin, acetaminophen and calcium. ALLERGIES: No known allergies. SOCIAL HISTORY: Negative tobacco. Negative daily alcohol. She is seen at the bedside with her and they reportedly have been for over 50 years. Her is quite interested in taking her home and feels convinced that he can help her improve her nutritional status at home more than can be done at the hospital or at the intermediate facility. Notably, he appears to be relatively frail, using oxygen as he ambulates. REVIEW OF SYSTEMS: Per admission history and physical. PHYSICAL EXAMINATION: Temperature is 37, pulse is 84, blood pressure is 133/83. She is conversant and friendly, eating dinner with the help of the aide when I have come by to see her. I have not performed any other examination partly because she is eating dinner and, as well, I have reviewed the notes from the principal technical specialist today that describe her wounds as stage 4 on the sacrum with covered bone and visible granulation in the bed with some minimal wound undermining but no tunneling and no necrotic tissue with serous drainage as well as a healing stage 3 pressure injury on her right hip and a superficial stage 2 at her hip, all of which were dressed and felt not to require operative drainage. IMAGING: I reviewed the CT scan of the abdomen and pelvis from June 30 and see that there are soft tissue ulcers in the sacral area but see no sign of abscess or necrotic tissue or gas that would suggest a need for moving ahead with operative debridement. LABS: Her white count is 27.8 from early this morning. Her potassium is 2.9. Lactic acid was 4.3 on admission yesterday but down to 1.1 early this morning. Procalcitonin has dropped from 108 to 86.9. IMPRESSION AND PLAN: This 85-year-old woman was admitted with sepsis likely from her urinary tract infection with a chronic pressure sore that has been closely followed by our [facility] and was seen earlier today with a dressing placed by our principal technical specialist. Based on his evaluation and my review of the CT, I do not think that this chronic pressure sore requires operative debridement urgently, and I will discuss the case with him tomorrow and try to see the wound within the next 24-48 hours with the principal technical specialist at the time of scheduled dressing change.
[2016-07-02] VITALS (10 sets, daily range): BP systolic 109–129; BP diastolic 69–80; PULSE 69–93; RESP 16–28; O2SAT 94–98
[2016-07-02] MEDS: Heparin 5,000 Unit/mL Inj SUBQ SCH ×4 (00:49→23:56)
[2016-07-02] MEDS: Dextrose 5% 0.45% NaCl 1,000 ML IV SCH ×3 (02:45→22:43)
[2016-07-02 04:21] LABS: BASOPHILS % (AUTO) 0.1 % (0-3); EOSINOPHILS % (AUTO) 2.3 % (0-5); MONOCYTES % (AUTO) 3.6 % (4-12); Mean Corpuscular Hemoglobin 27.7 pg (27.0-35.0); Mean Corpuscular Volume 87.9 fL (81-100); NEUTROPHILS % (AUTO) 89.2 % (40-74); Platelet Count 211 bil/L (150-400)
[2016-07-02 04:42] LABS: TROPONIN T 0.028 ug/L (0.0-0.011)
[2016-07-02 04:52] LABS: Magnesium 1.7 mg/dL (1.6-2.6); Phosphorus 1.4 mg/dL (2.5-4.9)
[2016-07-02] MEDS ORDERED: Potassium Phos (mEq) Inj 40 MEQ in Dextrose 5% 500 ML IV ONE (05:05)
--- NOTE | 2016-07-02 05:45 | NUR ---
potassium/phos pts potassium and phos were low this morning, 3.4/1.4, pt is on repletion protocol for potassium/mag, called and he order K/phos IV rider which is hung and running at 63.6cc/hr for 8 hours.
--- NOTE | 2016-07-02 05:47 | NUR ---
loose stools pt having 3 loose incontinent stools this shift,
[2016-07-02] MEDS ORDERED: Albuterol HFA 60 Puff 8 Gm Inhaler INHALATION PRN (09:40)
[2016-07-02] MEDS: Albuterol-Ipratropium 3 mL Inhalation Solution NEB SCH ×3 (10:05→21:33)
--- NOTE | 2016-07-02 10:18 | PROG NOTE ---
[address] [address] PROGRESS NOTE PATIENT: RONNA MENDEZ : 1930 MR#: [id number] ADMIT: 06/30/2016 JOB ID: [id number] DATE: 07/02/2016 INFECTIOUS DISEASE FOLLOWUP NOTE: REASON FOR FOLLOWUP: Complicated urinary tract infection with high-grade bacteremia with multi-drug resistant proteus. INTERVAL HISTORY: Overnight, the patient has felt a little bit better. She denies fevers or chills. She was able to eat a little bit of breakfast. This case was reviewed with the patient's daughter who is at the bedside. PHYSICAL EXAMINATION: Temperature 36.8, and the patient has been afebrile since two days ago when she was admitted with a temperature greater than 39 degrees. Pulse 76, respiratory rate 18, blood pressure 126/80, saturating well on room air. Examination of the mental status reveals she is awake, alert this morning, and smiling. Oral cavity without notable abnormalities. The mucous membranes are dry. Lungs with wheezing bilaterally, though no rales are heard in the lower lung bryan but upper airway wheezing is noted. Cardiac tones without change. Abdomen benign. LABORATORIES: Include white count, which has dropped from 28,000 down to 16,000, still with left shift, 89% polys. Creatinine 0.34. Procalcitonin this morning 50, down from 109 two days ago. Urinalysis had heavy pyuria, and both urine and blood have grown a rather resistant Proteus mirabilis. This is resistant to first-generation cephalosporins, Unasyn, quinolones, gentamicin, tobramycin and trimethoprim/sulfamethoxazole. It is, fortunately susceptible, to the carbapenems. The cultures from the decubitus ulcer have grown Staphylococcus aureus, and are also growing a gram-negative. We do not yet have susceptibilities for the Staph aureus. IMPRESSION: This is a malnourished patient who was admitted with a stage 3 decubitus ulcer, as well as high-grade, bacteremic, complicated proteus urinary tract infection. She is improving on appropriate antibiotics, which up until now have included meropenem. As we do not know the nature of the gram-negative, we are concerned about possible resistance. It does hospitalist nocturnist physician that this is quite a resistant organism but it is sensitive to ertapenem, which is a little bit narrower spectrum carbapenem than meropenem. RECOMMENDATIONS: 1. Will discontinue meropenem. 2. Will start the patient on ertapenem. 3. We await the cultures from the decubitus ulcer. 4. The input from Surgery on the decubitus ulcer was noted, and obviously, the patient is going to require continued aggressive care in a rehab or detention facility when she has some more improvement with respect to her urinary tract infection. I would anticipate a total course of meropenem combined with ertapenem for about 10 days.
[2016-07-02] MEDS ORDERED: Furosemide 10 mg/mL 2 mL Inj IVPUSH ONE (10:30)
[2016-07-02] MEDS ORDERED: Albuterol 2.5 mg/3 mL Inhalation Solution NEB PRN (11:05)
[2016-07-02] MEDS: Artificial Tears 15 mL Ophthalmic Solution BOTH_EYES SCH (11:31)
[2016-07-02] MEDS: Ertapenem Inj 1,000 MG in 0.9% Sodium Chloride 50 ML IV SCH (11:32)
--- NOTE | 2016-07-02 12:23 | PCM.PNSURG ---
Subjective Date of Service: Jul 02, 2016 Date of Service: Jul 02, 2016 Visit Information: Reason for Visit Septic Shock Date of Admission: Jun 30, 2016 at 16:44 Hospital Day #3 Subjective: Patient seen in conjunction with Gold from the wound therapy department. Objective Vital Sign- Last 8 Hours Date Time Temp Pulse Resp B/P Pulse Ox O2 Delivery O2 Flow Rate FiO2 07/02/16 10:32 72 07/02/16 10:07 69 28 98 Room Air 07/02/16 08:14 Supplement Oxygen 07/02/16 08:14 36.8 76 18 126/80 98 Room Air 07/02/16 04:21 Supplement Oxygen Intake and Output- Last 8 Hour 07/02/16 Cumulative From/Thru 07:00 06/30/16 11:18 - 07/02/16 06:09 Intake Total 1378 ml 87270 ml Output Total 500 ml 2450 ml Balance 878 ml 74515 ml Intake Oral 100 ml 100 ml IV Total 1278 ml 45005 ml Output Urine Total 500 ml 2450 ml # Bowel Movements 3 8 SURGICAL WOUND : Wound Location/Description Wounds consistent with description by wound therapist previously: stage 4 pressure injury of her sacrum measuring 5.7 cm x 3.5 cm x 0.6 cm, currently bone is covered but the ligaments are visible in the granulation bed. , wound is undermined about 1.5 cm circumferentially, no tunneling, no necrotic tissue, drainage is moderate and serous. stage 3 Pressure injury at her right hip which measures 1.4 cm x 2 cm x 0.1 cm and a superficial stage 2 at her hip just above the other approx 1 cm in diameter No surrounding erythema today. No necrosis. No purulent drainage. The undermining extends to the greatest extent at the superior apex of the sacral ulcer about 1.5 cm. Result Diagram: 07/02/1640907/02/16409 Lab & Micro Results: Albumin 1.8 on 06-30-16 Buttock C &S positive for gram positive cocci and rare gram variable rods. ID and sensitivity pending. Hip C&S significant for probable staph aureus and gram-negative benoit with ID and sensitivity pending. Assessment & Plan Impression Diagnosis: Gram-negative bacteremia due to urosepsis Profound malnutrition Stage IV sacral pressure injury Stage III pressure injury right hip Stage II pressure injury right hip Other diagnoses: Status post CVA August 2015 with left-sided deficits History of colon cancer status post resection 2004 History of SBO Hyperlipidemia Osteoarthritis Problems: Plan Dressing changes per wound therapist, currently using Aquacel Ag and mepilex adhesive foam Continue antibiotics per ID. Improve nutritional status. Dr. Linton will see tomorrow. Linette Leal PA-C Jul 02, 2016 12:23
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
--- NOTE | 2016-07-02 14:36 | NUR ---
Wound Care Pt seen at bedside for wound care today, Pt incontinent of stool at treatment time x2. Sacral stage 4 Pressure injury was cleaned with gauze and saline, remains unchanged from previous assessment with undermining most significant at 1200 approx 1.5 cm- 2 cm. Does not appear infected and wound bed is 75% granular with ligament exposure making up the difference. Redressed wound with Aquacel Ag packing and mepilex adhesive foam dressing. Right hip stage 2 and stage 3 pressure injuries are cleaned and redressed with an adhesive foam dressing. Pt tolerated dressing change and wound care with minimal discomfort. Recommend daily dressing changes and sidelying on left primarily at this time ok to be on back with head of bed below 30 degrees.
[2016-07-02] MEDS ORDERED: Meropenem Inj 1,000 MG in IV Premix 1 EACH IV SCH (16:30)
--- NOTE | 2016-07-02 17:01 | NUR ---
NUTRITION ASSESSMENT: ASSESS: Pt is an 85yo F admitted for septic shock. She has Sacral stage 4 Pressure injury and Right hip stage 2 and stage 3 pressure injuries. Pt is currently on a stimulation diet with no liquids per ST and per RN pt's has been bringing in high kcal/pro smoothies for pt. Pt reported that her appetite is good but she doesn't like the food here because it is too sweet. Pt was recently admitted in April and RD spoke with pt and extensively about ways to increase kcal/pro. Pt's wt has overall been stable since last admit. was not in room when visited with pt. Will f/u tomorrow to speak w/. PMHX: CVA, colon, ca, SBO, HLD, osteoarthritis LABS: Reviewed. K 3.4, Flame Hardening Machine Setter 1.34, Ca 7.2, phos 1.4, Alb 1.8 MEDS: Reviewed. GI: BMx3 07/02 SKIN: Sacral stage 4 Pressure injury and Right hip stage 2 and stage 3 pressure injuries. Visible muscle and subcutaneous fat loss in arms, shoulders, face, and neck. CURRENT WTS: 56kg, BMI 24.2kg/m2, admit wt 48kg. Wt 07/2013: 58.7 kg. Wt Changes: 9.79 kg wt loss x9 months (17% = significant) DIET: stimulation: PO 100%x1 EST. NEEDS: wound healing Kcals: 1965-2245kcal/day (35-40kcal/kg) Pro: 85-110g/day (1.5-2.0g/kg) NUTRITION DIAGNOSIS: 1.) Increased nutrient needs related to increased demand for wound healing as evidence by Sacral stage 4 Pressure injury and Right hip stage 2 and stage 3 pressure injuries. 2.) Severe malnutrition of unclear etiology as evidenced by 17% wt loss x9 months, and loss of LBM and subcutaneous fat and non-healing wounds 3.) Inadequate oral intake related to decreased ability to consume sufficient energy as evidenced by current stimulation diet order. NUTRITION INTERVENTION: 1.) Spoke briefly with pt about encouraging high kcal/pro intake and trying to eat all her meals. Pt requested that we speak with about diet. was not in room when visited with pt. Will f/u tomorrow. 2.) Pt does not like sweet foods and does not like cottage cheese. Unfortunately on stimulation diet, most food options are sweet. dietetic aide is aware of pt's diet preference. 3.) Recommend advance diet per ST. 4.) Pt and were provided High Calorie/Protein Recipe Books, Tips for Increasing Calories, and Tips for Increasing Protein during last admit. has been making smoothies using recipe book that was provided. Will f/u tomorrow with regarding any questions. 5.) Once diet advanced, recommend addition on Ancelmo BID to help with wound healing. MONITOR / EVAL: PO, ST, diet advc, add supplements & Ancelmo, wounds, wt, labs. GI, POC. Will continue to monitor per high nutrition risk guidelines
--- NOTE | 2016-07-02 17:40 | NUR ---
Social Work Note: Continued Discharge Planning Data& Assessment: SW met with pt at bedside to discuss discharge planning, SW role explained. SW discussed PT and MD recommendations for SNF with pt. Pt explained she has stood up with PT today which has been a very big improvement for her and she has [facility] caregiving as well as [facility] services coming into the home. SW explained concern regarding the severity of her wounds at this admission and her wounds getting appropriate care more often if she was at a SNF. Pt stated " No! I will never go." Pt continued to emphasize this point. Pt was at a fdc facility in [place] for a number of months during the summer and fall of 2015. SW is concerned that this has made pt fearful to go to a SNF again. Pt arrived at bedside and brought up [facility]. Pt reviewed pt's experience at the SNF in [place] as well as the different caregiving agencies and home health agencies that have provided services in the past couple of months. Pt shared that for the last couple months when pt was a the SNF in [place] she was not receiving any therapies and continued to get weaker and weaker. Pt felt that if he was paying $8,000 a month, she should be getting physical therapy as well as more wound care and that is why he decided to take her home with private caregiving and home health. Pt explained that [facility] was just about to begin cordwainer coming to the home three times a week, this week, prior to pt becoming sick. Pt stated that [facility] is just down the road from there home and he will be visiting the facility tomorrow. Pt emphasized that if the facility is unable to provide wound care as often as he is hoping, he will want to bring her home where he is convinced she will get more care from [facility] and [facility] health. SW explained that in some cases, depending on severity of wounds and care needs, service agencies may decline to continue to provide services if they are unable to meet pt's needs. Pt repeated that "I will never go", referencing a SNF. Pt explained he is "trying to convince her of the opposite" and is hopeful that [facility] will provide a better experience for her than the SNF she stayed at in [place]. SW provided pt with SNF list to reference as well as SW phone number. Pt was advised to updated SW regarding how his visit goes at [facility]. SW staffed with LOCATION ANALYST [employer] manager, pt may benefit from family meet with pt, pt and daughter if the pt insists on returning home at time of discharge. SW to continue to follow. APS: SW still has not received a call back from pt previous APS care professional. After further review of ED notes, SW contacted APS to notify them of pt hospitalization and to make an updated report due to condition of pt in the ED as well as ongoing worsening of wounds. SW left a message on the APS referral line. SW to follow up with APS regarding pt. Plan: Anticipated discharge to [facility] when medically ready. Pt will be reviewing the facility in person tomorrow. SW to follow up with pt and pt family regarding discharge planning. SW to follow up with APS. SW to continue to follow. CHEPE Pierre
--- NOTE | 2016-07-02 18:17 | PCM.PNMED ---
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 Hospital day #3 Patient is resting comfortably this morning and visiting with her daughter. She states that she is feeling significantly better and that makes sure to tell me that she has never been sick, doesn't drink alcohol, doesn't smoke and has always been very healthy. She denies chest pain, fever, chills, nausea, or vomiting. She endorses some difficulty breathing, maintaining oxygen sats in upper 90s on room air. No acute events overnight. Per nursing, patient was incontinent of loose stool x3. Potassium and phos replaced. Exam Vital Signs Vital Sign - Last Date Time Temp Pulse Resp B/P Pulse Ox O2 Delivery O2 Flow Rate FiO2 07/02/16 04:21 Supplement Oxygen 07/02/16 03:42 36.0 71 16 129/72 96 07/01/16 04:00 2.00 Intake and Output 07/01/16 07/01/16 07/02/16 Cumulative From/Thru 15:00 23:00 07:00 06/30/16 11:18 - 07/02/16 06:09 Intake Total 1348 ml 1378 ml 03398 ml Output Total 500 ml 2450 ml Balance 1348 ml 878 ml 42179 ml Intake Oral 100 ml 100 ml IV Total 1348 ml 1278 ml 76763 ml Output Urine Total 500 ml 2450 ml # Bowel Movements 3 8 Exam General: Elderly female, curled up in bed, in no acute distress. Appropriately interactive. HEENT: Normocephalic, atraumatic. External ears without defect. Pupils equal, round, and reactive to light. Anicteric sclerae. moist mucosa. Neck: Supple, nontender without lymphadenopathy or thyromegaly. No JVD. Pulmonary: Symmetric chest rise with equal air entry bilaterally, diffuse wheezing throughout and mild bibasilar crackles. Normal respiratory effort, no use of accessory muscles. Cardiovascular: Regular rate and rhythm, normal S1,S2, no murmurs, rubs, or gallops appreciated. Abdomen: Soft, suprapubic tenderness, nondistended, bowel tones hypoactive. No hepatosplenomegaly or masses appreciated. Genitourinary: Chronic indwelling Robbins catheter changed (06/30/15). Extremities: Warm, well perfused without clubbing or cyanosis. Trace b/l lower ext edema. Skin: Normal temperature and texture; Dry skin. Chronic decubitus ulcers with dressing covering. IVs and Medications Medications Reviewed: Medications were reviewed in detail Lab and Diagnostics Result Diagram: 07/02/1640907/02/16409 Microbiology Blood culture 2 preliminarily growing gram variable rods with identification and sensitivities to follow. Urine culture preliminarily growing gram-negative rods with identification and sensitivities to follow. Influenza screen negative. MRSA screen pending. Wound culture and Gram stain pending. . X-Rays, CTs and MRIs X-RAY CHEST ONE VIEW, PORTABLE IMPRESSION: Decreased lung volumes. Increased degree of right minor fissural thickening may suggest evolving congestive heart failure. Dictated by: Russel Timmons M.D. on 06/30/2016 at 12:22 Approved by: Russel Timmons M.D. on 06/30/2016 at 12:22 CT ABDOMEN AND PELVIS WITHOUT CONTRAST IMPRESSION: 1. Soft tissue ulcer lies superficial to the posterior sacrum and does not appear to extend to the bony cortex. If there is persistent clinical suspicion for early sacral osteomyelitis, pre- and post contrast bony pelvis MRI may be considered for more sensitive evaluation. 2. Large amount of stool within the rectal vault may suggest fecal impaction. 3. Bilateral L5 pars defects, with grade 1 L5-S1 spondylolisthesis. 4. Nonacute right obturator ring healed fractures, age indeterminate moderate T12 vertebral body anterior wedge compression fracture, and nonacute mild L4 anterior wedge compression fracture. Dictated by: Russel Timmons M.D. on 06/30/2016 at 14:10 Approved by: Russel Timmons M.D. on 06/30/2016 at 14:10 . 12-lead ECG EKG: Sinus rhythm, heart rate 72, left axis, prolonged QTC otherwise normal intervals, early R-wave progression, no pathological Q waves or acute ischemic changes such as ST elevation or depression. . 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 Hospital day #3 1. Severe sepsis with shock, present on admission. Resolved. - Likely secondary to acute UTI as well as chronic stage IV decubitus ulcer. - Met criteria on admission with temp of 39.3, HR 110, RR 22 and lactic acid 4.3 with source of infection (urine, skin) - Fluid resuscitated and started on broad-spectrum antibiotics including: linezolid, meropenem, levofloxacin. Rec'd vanco/zosyn x1 dose in the ED. - Infectious disease consulted and following. Greatly appreciate Dr. Calderón's expertise and recommendations. 2. Acute bacteremia, present on admission. Active. - Likely secondary to acute urinary tract infection. Blood and urine cultures positive for Proteus mirabilis - Continue antibiotics, per ID. Reevaluate pending decubitus ulcer culture. 3. Chronic decubitus ulcers, present on admission. Active. - CT abd & pelvis without evidence of osteomyelitis. 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 - Wound care consulted and following. Wound culture, pending. - Continue antibiotics, per ID. - General surgery consulted, do not recommend urgent operative debridement. 4. Acute UTI, secondary to infected chronic indwelling Robbins catheter, present on admission. Active. - Pt met sepsis criteria as above and was fluid resuscitated. Required pressor support initially. Remains hemodynamically stable. - Chronic indwelling Robbins catheter replaced. - WBC and procalcitonin trending down. Lactic acid normalized. - Blood and Urine cultures growing Proteus mirabilis. - Antibiotics per ID, as above. 5. Fluid overload and acute dyspnea, not present on admission. Active. - Pt presented in septic shock and required aggressive fluid resuscitation. - Clinically hypervolemic with mild lower ext edema and bibasilar crackles - Pt notes some difficulty breathing, SpO2 high 90s on room air. - IV Furosemide, 20mg one time dose with symptomatic improvement and adequate diuresis. - Continue to monitor I/Os, reevaluate additional need for additional diuresis in the morning. - Duonebs and albuterol prn for shortness of breath. - CXR in the AM 6. Malnutrition and electrolyte abnormalities, chronic. Active. - Continue IV fluids and encourage PO intake - Monitor electrolytes and replace as needed. 7. Acute kidney injury, present on admission. Resolved. - Likely due to hypoperfusion secondary to sepsis and hypovolemia/dehydration. - Continue IV fluids and avoid nephrotoxic medications. - Monitor daily CMP 8. Acute encephalopathy, secondary to acute infection, present on admission. Resolved. - Secondary to infection. Patient has no history of seizures and there was no recent trauma. - ABG was unrevealing. 9. Fecal impaction, acuity unknown, present on admission. Likely resolved. - CT abd & pelvis with evidence consistent with fecal impaction. - Pt continues to have loose stool - KUB in the AM to assess for resolution. 10. Chronic Hypertension, present on admission. Active - Continue home dosing metoprolol tartrate 25mg bid 11. Chronic Hyperlipidemia, present on admission. Active. - Continue home dosing atorvastatin, 20mg daily 12. Prior CVA w/residual left-sided deficit, chronic. - Speech therapy and physical therapy 13. History of colon cancer, s/p colon resection. Presume stable. Acetaminophen-fever/headache/mild/moderate pain Antiemetics, as needed Bowel regimen, as needed. Disposition: Anticipated discharge in 1-2 days, possibly to SNF. Patient has been refusing but advocating for SNF if he feels patient will get adequate wound care. Pain Evaluation: Adequate Pain Control VTE Prophylaxis: Sub-Q Heparin (Unfractionated) VTE Mechanical Devices: Intermittant Pneumatic CD Attending Statement The patient was seen and examined together with Dr. Gracia on 07-02-16 and I agree with the history, exam and plan as outlined in the note above. Luli Gracia DO Jul 02, 2016 06:58 Tim Carnes MD Jul 03, 2016 15:53
--- NOTE | 2016-07-02 20:13 | NUR ---
Eating Patient was able to eat all cream of wheat for breakfast, a 14oz smoothie brought in for lunch and an applesauce from this RN. Patient understands the need to eat and states she will work on it.
[2016-07-02 22:55] LABS: Magnesium 1.4 mg/dL (1.6-2.6); Phosphorus 2.4 mg/dL (2.5-4.9)
[2016-07-02] MEDS ORDERED: Mag Sulf 4 Gm/100 mL IV Premix (Mag < 1.6 & Creat < 2) IV ONE (23:35)
[2016-07-02] MEDS ORDERED: KCl 40 mEq/100 mL Premix (K 3 - 3.7 & Creat < 2) IV ONE (23:35)
[2016-07-03] VITALS (12 sets, daily range): BP systolic 100–162; BP diastolic 63–87; PULSE 65–94; RESP 16–20; O2SAT 93–100
--- NOTE | 2016-07-03 00:39 | NUR ---
potassium/phons/mag rechecked pts potassium, phos and mag, potassium and mag were low, 3.2 and 1.4, per protocol ordered and hung 40mEq KCL and 4gm mag IV, will recheck post infusion. pt very tired this shift, Addendum: 07/03/16 at 0645 by RON MARKS RN post infusion potassium 3.9 mag 2.5 pt having 4 stools this shift
[2016-07-03 04:25] LABS: BASOPHILS % (AUTO) 0.2 % (0-3); EOSINOPHILS % (AUTO) 4.2 % (0-5); MONOCYTES % (AUTO) 4.4 % (4-12); Mean Corpuscular Hemoglobin 27.8 pg (27.0-35.0); Mean Corpuscular Volume 85.5 fL (81-100); NEUTROPHILS % (AUTO) 79.6 % (40-74); Platelet Count 209 bil/L (150-400)
[2016-07-03 04:54] LABS: Magnesium 2.5 mg/dL (1.6-2.6); Phosphorus 2.2 mg/dL (2.5-4.9)
[2016-07-03] MEDS: Albuterol-Ipratropium 3 mL Inhalation Solution NEB SCH ×4 (07:27→21:02)
--- NOTE | 2016-07-03 09:14 | DRSVH ---
PROCEDURE: X-RAY KUB ([id number]) INDICATIONS: FECAL IMPACTION TECHNIQUE: One view of the abdomen acquired. COMPARISON: [facility], CT, CT ABD PELVIS WO CON, 06/30/2016, 13:32. FINDINGS: Surgical changes and devices: None. Bowel: Bowel gas pattern is normal. Stool is noted prominently at the level of the rectum and left colon. Soft tissues: No suspicious abdominal calcifications. Visualized solid organ contours appear normal in size. Bones: No suspicious bony lesions. Multilevel areas of significant compression deformity and osteop enia are present within the lumbar spine, unchanged. IMPRESSION: Rectal and left colonic stool is noted. No obstruction. Dictated by: Elisabeth Grewal M.D. on 07/03/2016 at 9:12 Approved by: Elisabeth Grewal M.D. on 07/03/2016 at 9:12
--- NOTE | 2016-07-03 09:20 | DRSVH ---
PROCEDURE: X-RAY CHEST ONE VIEW, PORTABLE ([id number]) INDICATIONS: Shortness of breath TECHNIQUE: One view of the chest was acquired. COMPARISON: [facility], CR, XR PICC LINE PLACE BY NURSE, 06/30/2016, 15:12. [facility], CR, XR CHEST 1VW (PORTABLE), 06/30/2016, 12:08. FINDINGS: Surgical changes and devices: A left-sided PICC line is present with distal tip overlying the mid tho racic spine. Patient is rotated. Lungs and pleura: There is a persistent appearance of significant retrocardiac left basilar opacity w ith areas of patchy opacity also present in the left upper and right lower lobes. Mediastinum: Mediastinal contours appear normal. Heart size is normal. Bones and chest wall: No suspicious bony lesions. Overlying soft tissues appear unremarkable. IMPRESSION: 1. Left-sided PICC line with distal tip overlying the mid thoracic spine. Appearance is suspected to be related to patient's significant rotation. As clinical concern persists, repeat x-ray may be obtai levi with patient in better upright position for more adequate assessment. 2. Persistent, predominantly bibasilar opacities, appearing worse when compared to prior exam. Findin gs are likely related to pneumonia with areas of superimposed atelectasis and/or edema. Dictated by: Elisabeth Grewal M.D. on 07/03/2016 at 9:17 Approved by: Elisabeth Grewal M.D. on 07/03/2016 at 9:17
[2016-07-03] MEDS: Heparin 5,000 Unit/mL Inj SUBQ SCH ×2 (09:28→17:56)
[2016-07-03] MEDS: Artificial Tears 15 mL Ophthalmic Solution BOTH_EYES SCH (09:28)
[2016-07-03] MEDS: Ertapenem Inj 1,000 MG in 0.9% Sodium Chloride 50 ML IV SCH (09:29)
--- NOTE | 2016-07-03 10:08 | PROG NOTE ---
[address] [address] PROGRESS NOTE PATIENT: RONNA MENDEZ : 1930 MR#: [id number] ADMIT: 06/30/2016 JOB ID: [id number] DATE: 07/03/2016 SUBJECTIVE: The patient remains in the hospital on IV antibiotics for a probable urosepsis. Wounds were seen by General Surgery with wound care yesterday. At this point, it is felt there is no need for sharp debridement. Wound care will continue to follow the patient, General Surgery will be available for consultation through wound care. We will not see the patient on a regular basis until she follows up with [facility] as an outpatient.
[2016-07-03] MEDS: Dextrose 5% 0.45% NaCl 1,000 ML IV SCH ×2 (10:57→21:33)
--- NOTE | 2016-07-03 11:36 | PROG NOTE ---
[address] [address] PROGRESS NOTE PATIENT: RONNA MENDEZ : 1930 MR#: [id number] ADMIT: 06/30/2016 JOB ID: [id number] DATE: 07/03/2016 REASON FOR FOLLOWUP: Complex infection with bacteremic multidrug resistant Proteus UTI and associated left sacral and buttock decubiti ulcers infected with methicillin-sensitive Staphylococcus aureus, Proteus, and probably anaerobes. INTERVAL HISTORY: Overnight, the patient reports she is feeling somewhat better. She has had no fevers or chills. She notes that her respirations are somewhat better. She does complain of some bilateral knee pain. She states that she is trying harder to improve her nutrition so that she can get stronger, and she is currently watching the [employer]. PHYSICAL EXAMINATION: Reveals an afebrile woman, temp 37.4, pulse 94, respiratory rate 16, blood pressure 162/87, saturating 96% on room air. The patient continues to appear extraordinarily weak and frail but perhaps a bit better day by day. Oral cavity without thrush. Lungs with decreased breath sounds at the bases but seemingly improved day by day. Abdomen without tenderness. DIAGNOSTIC DATA: Labs include white count which has normalized completely from 28,000, now down to 9. Her platelet count 209, creatinine less than 0.3. LFTs are normal. Procalcitonin has gone from 109 three days ago to 21 today, so dropping by about half a day. Micro studies include Staph aureus, now growing from the large coccyx decubitus. In addition, a buttock wound/decub is growing Proteus mirabilis with aerobe culture still pending, and both blood and urine are growing a multidrug resistant Proteus. Chest x-ray shows continued infiltrates with concern for a bibasilar pneumonia. IMPRESSION: This unfortunate malnourished woman has a variety of infections ongoing at this time, including multidrug resistant bacteremic complicated Proteus urinary tract infection, decubitus ulcers that are infected or superinfected with methicillin-sensitive Staphylococcus aureus and Proteus, and probable pneumonia which is likely aspiration. All of these infections can be treated with ertapenem as a parsimonious once a day choice. We have no oral antibiotics for the Proteus. RECOMMENDATIONS: 1. Continue with ertapenem for a minimum of 10 total days of therapy. 2. Will continue to follow this patient with you, but it is my understanding she may be transferred to a fdc before too long. If so, she should complete the ertapenem which would go through July 11. Thank you very much. ID will continue to follow with this patient while she remains in the hospital.
--- NOTE | 2016-07-03 13:56 | PCM.PALLBR ---
Palliative Care Recommendation Summary of palliative recommendations: Symptom management (Pain/other): per Attending. Goals of care: 1. Disposition is for placement in the ECF. She will need nutritional support as well as wound management. I think she will benefit from rehabilitation and physical therapy.Her prefers [facility], if possible Baseline Function: Patient says that while at [facility] she was able to walk with assistance but she has not been out of bed at home. DPOA/Advanced Directives/POLST: 1. Code: Dr. Cruz reviewed CODE STATUS with patient on 07/02. Patient choose: no machines/allow natural /DO NOT RESUSCITATE/ DO NOT INTUBATE. This corresponds with previous discussion during office visit documented approximately 2 years ago. It is also the understanding of her daughter as to her wishes. Her feels this is only appropriate if two physicians deem some level of futility. He is concerned that patient does not understand the complexities of the question. Based on discussion 07/02 as well as discussion 2 years ago in the office, Dr. Cruz (who is her former PCP) believes patient does understand and that her wishes are DO NOT RESUSCITATE. 2. Advanced Directives: At 07/[address] Love, pt, and dtr Isabell, the Cornel produced a living will signed by patient and notarized in 1985 that also states she would not want prolongation of life when terminally ill and would not want artificial interventions such as intubation, ventilation or feeding tube. Family/emotional support: complex with good intent. 07/03: Dr. Love met separately with daughter Isabell who has several concerns: 1. She feels that both of her parents having been showing signs of cognitive deficits, and poor judgement. 2. She states that her father is not strong enough to lift a bag of groceries , and likely not strong enough to turn his in bed or help her change her disposable underwear (she is incontinent of bladder and bowel). Patient has been using disposable underwear since 01/2016. 3. She believes that because of #1 and #2, her mother developed decubiti, and then they became infected. 4. She states that her parents are financially comfortable and could afford to hire private nursing help to at home, but her father refuses to do so. Dr. Love encouraged Isabell to report this information to [employer], which had a case open on her mother in late March 2016, and then closed it. Isabell is also pursuing help from an finance attorney to see if there is any other way she can protect her mother from further neglect due to her parents' cognitive deficits. Patient Goals: 1. Patient wants to be told the truth about his/her illness, even if it is unpleasant. 2. Patient would like to be told prognosis when it can be predicted, to better guide treatment decisions. 3. Patient would choose quality of life over quantity of life. Specifically patient declines an option for feeding tube 4. Patient would request that comfort care take priority over cognitive/mental confusion. Disposition: likely SNF when medically stable per Attending Problems: End of Life Preferences DNR/DNI no feeding tube Disposition When medically stable plan would be to discharge to [facility]- for nutritional support wound management and the physical therapy Resuscitation Status Resuscitation Status: DNR/DNI:Do Not Resuscitate/Intubate POLST Updates/Changes Previous POLST?: No (patient has declined completing a POLSTin the past and present- she does not trust signing things) Artificially Admin Nutrition: No Artifical Nutrition by Tube Total time 90 minutes; >50% face to face with patient and/or family, providing counselling regarding plans and recommendations, and in care coordination with his/her medical teams. I also spent an additional 65 minutes counseling for advanced care planning with the patient/the patients family/the surrogate decision maker. Palliative Brief Note Date of Service Jul 03, [address] Cruz, now on Palliative Care Team, was patient's PCP for many years- more recently followed by [facility] Patient Identification: Mrs. Norah Serna is a 85-year-old female hx of CVA 2015 with hospitalization at [facility] up to [facility] rehab for 2-3 months. Her was dissatisfied with her care and blames [facility] and [facility] for not recognizing SBO that was then evident on CT obtained due to acute onset N/ V. She required surgical intervention for SBO and he took her home for management. He has had home health assistance but switched companies due to his discontent with their care. He feels since home she has been eating well and her decub ulcer was due to past neglect. Their daughter Isabell gives a different story with her father not being able to adequately take care due to his own health issues as well as stubbornness-not able to turn her in bed, getting into fights with his on what she will or wont eat--this has been their relationship. Hospital Course: Patient admitted for obtundation and sepsis, unclear whether due to indwelling palencia or severe decubiti. She was evaluated by surgery regarding debridement of her decubitus ulcers, and they feel she does not need sharp debridement and can follow-up in outpatient wound clinic. She is extremely malnourished with albumin of 1.8 and prealbumin 6. She has been required fluids and pressors --now off. She receives ongoing treatment by ID for a complex infection with bacteremic multidrug resistant Proteus UTI and associated left sacral and buttock decubiti ulcers infected with methicillin- sensitive Staphylococcus aureus, Proteus, and probable anaerobes. ID recommends ongoing ertapenem IV for a minimum of 10 total days of therapy (through July 11). Angelic Love MD Jul 03, 2016 13:56
[2016-07-03] MEDS ORDERED: Sodium Biphos-Phos 133 mL Enema RECTAL PRN (14:40)
--- NOTE | 2016-07-03 14:54 | NUR ---
NUTRITION FOLLOW-UP: ASSESS: Pt is an 85yo F admitted for septic shock. She has Sacral stage 4 Pressure injury and Right hip stage 2 and stage 3 pressure injuries. I saw the pt and her during a previous visit. High calorie/protein nutrition therapy was discussed extensively. Pts prepares meals and smoothies for pt. He tells me that his son has high calorie MREs that he would like to give his to help boost her nutrition. Wt is up 4.7 kg since admission in April. PMHX: CVA, colon, ca, SBO, HLD, osteoarthritis LABS: Reviewed. BUN 4, Cr < 0.30, Ca 7.1, Phos 2.2, Albumin 1.8, Prealbumin 6 MEDS: Reviewed. Lopressor GI: BMx4 07/03 SKIN: Sacral stage 4 Pressure injury and Right hip stage 2 and stage 3 pressure injuries. Visible muscle and subcutaneous fat loss in arms, shoulders, face, and neck. CURRENT WTS: 54kg, BMI 23.3 kg/m2, admit wt 48kg. Wt 07/2013: 58.7 kg. Wt Changes: 9.79 kg wt loss x9 months (17% = significant) DIET: stimulation w/ HTL: PO 50-100% EST. NEEDS: wound healing Kcals: 1965-2245kcal/day (35-40kcal/kg) Pro: 85-110g/day (1.5-2.0g/kg) NUTRITION DIAGNOSIS: 1.) Increased nutrient needs related to increased demand for wound healing as evidence by Sacral stage 4 Pressure injury and Right hip stage 2 and stage 3 pressure injuries.---PERSISTS 2.) Severe malnutrition of unclear etiology as evidenced by 17% wt loss x9 months, and loss of LBM and subcutaneous fat and non-healing wounds---PERSISTS 3.) Inadequate oral intake related to decreased ability to consume sufficient energy as evidenced by current stimulation diet order.---PERSISTS NUTRITION INTERVENTION: 1.) Reviewed nutrition therapy for wt gain 2.) Discussed importance of protein intake for wound healing 3.) Encouraged 5-6 small meals per day w/ high calorie/protein foods 4.) Will send Ancelmo BID to promote wound healing MONITOR / EVAL: PO, ST, diet advc, wounds, wt, labs. GI, POC. Will continue to monitor per high nutrition risk guidelines Addendum: 07/03/16 at [address] requesting micronutrient supplementation for pt's wounds. Recommend 1500 mg/d vitamin c and 30 mg/d zinc. Rec's provided to pharmacy.
--- NOTE | 2016-07-03 15:22 | PCM.PNMED ---
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 Hospital day #4 No acute events overnight. Per nursing, electrolyte abnormalities including low potassium, phospate and magnesium. Replaced per protocol. Patient reportedly had four loose bowel movements. Marginal but some improvement in appetite and po intake. Patient states that she is feeling much better. Her is at the bedside and appropriately engaged in his 's care at this time. Prior to arriving today, he visited [facility] to see if this would be an acceptable SNF for the patient's wound care and physical therapy needs. No final decision at this time. Patient and family updated of ongoing antibiotic therapy, nutrition and wound care. Patient denies shortness of breath, fever, chills, abdominal pain, nausea or vomiting. Exam Vital Signs Vital Sign - Last Date Time Temp Pulse Resp B/P Pulse Ox O2 Delivery O2 Flow Rate FiO2 07/03/16 12:29 80 20 Room Air 07/03/16 11:59 36.3 132/81 97 07/01/16 04:00 2.00 Intake and Output 07/02/16 07/02/16 07/03/16 Cumulative From/Thru 15:00 23:00 07:00 06/30/16 11:18 - 07/03/16 06:41 Intake Total 1429 ml 1220 ml 1442 ml 64244 ml Output Total 3590 ml 2100 ml 8140 ml Balance 1429 ml -2370 ml -658 ml 9075 ml Intake Oral 1220 ml 120 ml 1440 ml IV Total 1429 ml 1322 ml 94661 ml Output Urine Total 3590 ml 2100 ml 8140 ml # Voids 3 3 # Bowel Movements 4 12 Exam General: Elderly female, sitting up in bed, in no acute distress. Appropriately interactive. HEENT: Normocephalic, atraumatic. External ears without defect. Pupils equal, round, and reactive to light. Anicteric sclerae. moist mucosa. Neck: Supple, nontender without lymphadenopathy or thyromegaly. No JVD. Pulmonary: Symmetric chest rise with equal air entry bilaterally, lungs clear to auscultation bilaterally. Normal respiratory effort, no use of accessory muscles. Cardiovascular: Regular rate and rhythm, normal S1,S2, no murmurs, rubs, or gallops appreciated. Abdomen: Soft, suprapubic tenderness, nondistended, bowel tones hypoactive. No hepatosplenomegaly or masses appreciated. Genitourinary: Chronic indwelling Robbins catheter changed (06/30/15). Extremities: Warm, well perfused without clubbing or cyanosis. Trace b/l lower ext edema. Skin: Normal temperature and texture; Dry skin. Chronic decubitus ulcers with dressing covering. IVs and Medications Medications Reviewed: Medications were reviewed in detail Lab and Diagnostics White Blood Count 9.2, Red Blood Count 3.38, Hemoglobin 9.4, Hematocrit 28.9, Mean Corpuscular Volume 85.5, Mean Corpuscular Hemoglobin 27.8, Mean Corpuscular Hemoglobin Concent 32.5, Red Cell Distribution Width 15.8, Platelet Count 209, Neutrophils (%) (Auto) 79.6, Lymphocytes (%) (Auto) 11.3, Monocytes ( %) (Auto) 4.4, Eosinophils (%) (Auto) 4.2, Basophils (%) (Auto) 0.2 Sodium Level 140, Potassium Level 3.9, Chloride Level 108, Carbon Dioxide Level 22, Blood Urea Nitrogen 4, Creatinine < 0.30, Estimat Glomerular Filtration Rate 304, Glucose Level 108, Calcium Level 7.1, Phosphorus Level 2.2, Magnesium Level 2.5, Total Bilirubin 0.3, Aspartate Amino Transf (AST/SGOT) 31, Alanine Aminotransferase (ALT/SGPT) 12, Alkaline Phosphatase 91, Total Protein 4.7, Albumin 1.8, Prealbumin 6, Procalcitonin 21.81 Result Diagram: 07/03/1641407/03/16414 Microbiology Blood culture 2 preliminarily growing gram variable rods with identification and sensitivities to follow. Urine culture preliminarily growing gram-negative rods with identification and sensitivities to follow. Influenza screen negative. MRSA screen pending. Wound cultures: hip growing Staph aureus and sacral wound growing Proteus mirabilis. . X-Rays, CTs and MRIs X-RAY CHEST ONE VIEW, PORTABLE (07/03/16) IMPRESSION: 1. Left-sided PICC line with distal tip overlying the mid thoracic spine. Appearance is suspected to be related to patient's significant rotation. As clinical concern persists, repeat x-ray may be obtained with patient in better upright position for more adequate assessment. 2. Persistent, predominantly bibasilar opacities, appearing worse when compared to prior exam. Findings are likely related to pneumonia with areas of superimposed atelectasis and/or edema. Dictated and approved by: Elisabeth Grewal M.D. on 07/03/2016 at 9:17 X-RAY KUB (07/03/16) IMPRESSION: Rectal and left colonic stool is noted. No obstruction. Dictated and approved by: Elisabeth Grewal M.D. on 07/03/2016 at 9:12 X-RAY CHEST ONE VIEW, PORTABLE IMPRESSION: Decreased lung volumes. Increased degree of right minor fissural thickening may suggest evolving congestive heart failure. Dictated by: Russel Timmons M.D. on 06/30/2016 at 12:22 Approved by: Russel Timmons M.D. on 06/30/2016 at 12:22 CT ABDOMEN AND PELVIS WITHOUT CONTRAST IMPRESSION: 1. Soft tissue ulcer lies superficial to the posterior sacrum and does not appear to extend to the bony cortex. If there is persistent clinical suspicion for early sacral osteomyelitis, pre- and post contrast bony pelvis MRI may be considered for more sensitive evaluation. 2. Large amount of stool within the rectal vault may suggest fecal impaction. 3. Bilateral L5 pars defects, with grade 1 L5-S1 spondylolisthesis. 4. Nonacute right obturator ring healed fractures, age indeterminate moderate T12 vertebral body anterior wedge compression fracture, and nonacute mild L4 anterior wedge compression fracture. Dictated by: Russel Timmons M.D. on 06/30/2016 at 14:10 Approved by: Russel Timmons M.D. on 06/30/2016 at 14:10 . 12-lead ECG EKG: Sinus rhythm, heart rate 72, left axis, prolonged QTC otherwise normal intervals, early R-wave progression, no pathological Q waves or acute ischemic changes such as ST elevation or depression. . 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 Hospital day #4 1. Severe sepsis with shock, present on admission. Resolved. - Likely secondary to acute UTI as well as chronic stage IV decubitus ulcer. - Met criteria on admission with temp of 39.3, HR 110, RR 22 and lactic acid 4.3 with source of infection (urine, skin) - Fluid resuscitated and started on broad-spectrum antibiotics including: linezolid, meropenem, levofloxacin. Rec'd vanco/zosyn x1 dose in the ED. - Infectious disease consulted and following. Greatly appreciate Dr. Calderón's expertise and recommendations. 2. Acute bacteremia, present on admission. Active. - Likely secondary to acute urinary tract infection possibly sacral wound. Blood and urine cultures positive for Proteus mirabilis - Wound cultures growing: hip ulcer-Staph aureus and sacral ulcer Proteus mirabilis. - Continue antibiotics, per ID. 3. Chronic decubitus ulcers, present on admission. Active. - CT abd & pelvis without evidence of osteomyelitis. 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 - Wound care consulted and following. Wound cultures, as above - General surgery consulted, do not recommend urgent operative debridement. - Continue antibiotics, per ID. 4. Acute UTI, present on admission. Active. - Pt met sepsis criteria as above and was fluid resuscitated. Required pressor support initially. Remains hemodynamically stable. - Secondary to infected chronic indwelling Robbins catheter. Chronic indwelling Robbins catheter replaced. - WBC and procalcitonin trending down. Lactic acid normalized. - Blood and Urine cultures growing Proteus mirabilis. - Antibiotics per ID, as above. 5. Fluid overload and acute dyspnea, not present on admission. Resolved. - Pt presented in septic shock and required aggressive fluid resuscitation. - Clinically hypervolemic on hospital day #3 with mild lower ext edema and bibasilar crackles - Pt noted some difficulty breathing, SpO2 high 90s on room air. - IV Furosemide, 20mg one time dose with symptomatic improvement and adequate diuresis. - Continue to monitor I/Os, additional diuresis as needed on daily basis. - Duonebs and albuterol prn for shortness of breath. 6. Chronic Malnutrition and electrolyte abnormalities, present on admission. Active. - Continue IV fluids and encourage PO intake - Monitor electrolytes and replace as needed. 7. Acute kidney injury, present on admission. Resolved. - Likely due to hypoperfusion secondary to sepsis and hypovolemia/dehydration. - Continue IV fluids and avoid nephrotoxic medications. - Monitor daily CMP 8. Acute encephalopathy, secondary to acute infection, present on admission. Resolved. - Secondary to infection. Patient has no history of seizures and there was no recent trauma. - ABG was unrevealing. 9. Fecal impaction, acuity unknown, present on admission. Improving. - CT abd & pelvis with evidence consistent with fecal impaction. - Pt continues to have loose stool - KUB still showing significant amount of stool in colon but no obvious obstruction. - Schedule bowel regimen and enema today. 10. Chronic Hypertension, present on admission. Stable - Continue home dosing metoprolol tartrate 25mg bid 11. Chronic Hyperlipidemia, present on admission. Stable. - Continue home dosing atorvastatin, 20mg daily 12. Prior CVA w/residual left-sided deficit, chronic. - Speech therapy and physical therapy 13. History of colon cancer, s/p colon resection. Presume stable. Acetaminophen-fever/headache/mild/moderate pain Antiemetics, as needed Disposition: Anticipated discharge in 1-2 days, possibly to SNF. Patient has been refusing but advocating for SNF if he feels patient will get adequate wound care and physical therapy. . Pain Evaluation: Adequate Pain Control VTE Prophylaxis: Sub-Q Heparin (Unfractionated) VTE Mechanical Devices: Intermittant Pneumatic CD Resuscitation Status: DNR/DNI:Do Not Resuscitate/Intubate Attending Statement The patient was seen and examined together with Dr. Gracia on 07-03-16 and I agree with the history, exam and plan as outlined in the note above. Luli Gracia DO Jul 03, 2016 13:51 Tim Carnes MD Jul 04, 2016 12:52
--- NOTE | 2016-07-03 16:34 | NUR ---
Social Work: Continued Discharge Planning D: Pt discussed in morning rounds. Pt not medically stable for discharge at this time and will be here for at least 2 more days. Pt's spouse toured [employer] today. t/c from [employer] [facility]. They state that they have some concerns about pt due to medical complexity and family dynamics. They will continue to follow but at this time cannot issue a formal acceptance due to the pt's current needs. A: Pt who will require skilled rehab at time of discharge. P: [facility] continuing to follow but has not issued formal acceptance due to complexity of care; AUTOMOBILE RENTAL REPRESENTATIVE to follow up with pt's spouse tomorrow. CHEPE Caraballo
--- NOTE | 2016-07-03 16:49 | NUR ---
Wound Care Patient seen at bedside for wound Care of sacral stage 4 PI and right hip stage 3 PI. Right hip PI Drainage-minimal, sanguineous, without odor. Periwound- no erythema, no tunneling, no undermining. Base- 90% granulation, 10% fibrin. Measurements-1.3 cm x 2 cm x flush. Cleaned with saline moist gauze. Redressed with adhesive mepilex foam dressing. Sacral PI Drainage- Moderate, yellow/green, mild odor. Periwound- mild erythema, undermined circumferentially approx 0.5 cm to 1.3 cm. Base- 75% granulation, 25% ligamentous structures. Measurements- 5.7 cm x 3.5 cm x 0.6 cm. Cleaned with saline moist gauze. Redressed with Aquacel Ag packing and adhesive mepilex foam dressing. Will recheck tomorrow, wounds stable hip actually improved.
[2016-07-03] MEDS: Ascorbic Acid 500 mg Tablet PO SCH (17:51)
--- NOTE | 2016-07-03 18:26 | NUR ---
Cooperative Patient continues to be cooperative with care, ate 100% of breakfast and lunch, only a few bites of dinner and few sips of specialty drink recommended by speech therapy.
[2016-07-04] VITALS (12 sets, daily range): BP systolic 108–144; BP diastolic 69–99; PULSE 61–98; RESP 16–20; O2SAT 93–96
[2016-07-04] MEDS: Heparin 5,000 Unit/mL Inj SUBQ SCH ×4 (00:40→21:15)
--- NOTE | 2016-07-04 01:15 | NUR ---
Hydration Pt finished entire cup of Ancelmo therapeutic drink Drink thickened to honey consistency to satisfy SPRING UPHOLSTERER intake requirements. Pt able to drink cup without assistance. Spouse encouraged pt to comply.
[2016-07-04] MEDS: Dextrose 5% 0.45% NaCl 1,000 ML IV SCH ×4 (02:45→21:16)
[2016-07-04 06:06] LABS: BASOPHILS % (AUTO) 0.2 % (0-3); MONOCYTES % (AUTO) 7.1 % (4-12); Mean Corpuscular Hemoglobin 27.8 pg (27.0-35.0); Mean Corpuscular Volume 85.8 fL (81-100); NEUTROPHILS % (AUTO) 72.8 % (40-74); Platelet Count 200 bil/L (150-400)
[2016-07-04 06:33] LABS: Magnesium 1.3 mg/dL (1.6-2.6)
--- NOTE | 2016-07-04 06:48 | NUR ---
Critical Values Solution Designer received critical lab results at 0545 of potassium of 2.5 and calcium of 6.2. Solution Designer mark valle MD.
[2016-07-04] MEDS ORDERED: Calcium Chl 10% (Gm) Inj 2 GM in Dextrose 5% 250 ML IV ONE (06:55)
[2016-07-04] MEDS ORDERED: KCl 40 mEq/D5W 500 mL 40 MEQ in IV Premix 1 EACH IV ONE (06:55)
[2016-07-04] MEDS ORDERED: Magnesium Sulf 4 Gm/100 mL H2O 4 GM in IV Premix 1 EACH IV ONE (07:45)
[2016-07-04] MEDS: Polyethylene Glycol (PEG) 17 Gm Powder PO SCH (08:30)
[2016-07-04] MEDS ORDERED: Morphine PF 1 mg/mL 10 mL Inj IV PRN (08:35)
[2016-07-04] MEDS: Albuterol-Ipratropium 3 mL Inhalation Solution NEB SCH ×4 (09:06→20:21)
[2016-07-04] MEDS: Artificial Tears 15 mL Ophthalmic Solution BOTH_EYES SCH (10:56)
[2016-07-04] MEDS: Ascorbic Acid 500 mg Tablet PO SCH ×3 (10:56→18:31)
--- NOTE | 2016-07-04 11:19 | NUR ---
Gave access to [facility],Shruthi, Vandana, Niels Austin and Myrtle. This patient is needing senior care for multiple reasons and want to make sure there is a broad search done for placement. PIANO BENCH ASSEMBLER requested we start this process today.
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
--- NOTE | 2016-07-04 14:57 | NUR ---
Social Work: Continued Discharge Planning D: Pt discussed in morning rounds. Pt is not medically stable for discharge and is expected to d/c in several days. SHIFT SUPERVISOR FILM PROCESSING met with pt and spouse at bedside to discuss discharge options. Pt's spouse toured [facility]. He still has concerns about their ability to manage her care however this is his preference. He would not provide a second choice option. Based on information provided from [facility], SHIFT SUPERVISOR FILM PROCESSING requested ESTIMATION MANAGER make referrals to additional facilities in case [facility] is not able to accept. t/c to [facility]. SHIFT SUPERVISOR FILM PROCESSING left message for [facility] bridges supervisor, Kathie Glaeana, to discuss status of recent report/intake. SHIFT SUPERVISOR FILM PROCESSING requested urgent return phone call to discuss discharge plan and disposition. A: Pt who was previously living at home with her spouse and open with [facility] P: [facility] is reviewing; pt to likely require skilled rehab at time of discharge based on wound care and level of mobility/function. CHEPE Caraballo
[2016-07-04 15:17] LABS: Magnesium 2.3 mg/dL (1.6-2.6)
--- NOTE | 2016-07-04 16:32 | NUR ---
Wound Care Pt seen for dressing change to day, Morphine provided by nursing prior to dressing change. Stage 4 Sacral ulcer is stable and unchanged from last assessment. Redressed with Aquacel Ag to pack and then sacral adhesive foam dressing overall. This can be changed by nursing daily over the weekend. Stage 3 right hip ulcer to be covered with adhesive foam and changed daily.
[2016-07-04] MEDS: Ertapenem Inj 1,000 MG in 0.9% Sodium Chloride 50 ML IV SCH (18:31)
--- NOTE | 2016-07-04 19:38 | PCM.PNMED ---
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 Hospital day #5 No acute events overnight. Per nursing, patient's appetite is improving. She ate 100% of breakfast and lunch yesterday, and only a few bites of dinner. Today patient endorses fatigue and states that she is feeling much better. Pain is well controlled and today she was able to finish an entire cup of Ancelmo therapeutic drink. Patient denies shortness of breath, fever, chills, abdominal pain, nausea or vomiting. Exam Vital Signs Vital Sign - Last Date Time Temp Pulse Resp B/P Pulse Ox O2 Delivery O2 Flow Rate FiO2 07/04/16 12:11 82 20 95 Room Air 07/04/16 11:59 36.6 129/80 07/01/16 04:00 2.00 Intake and Output 07/03/16 07/03/16 07/04/16 Cumulative From/Thru 15:00 23:00 07:00 06/30/16 11:18 - 07/04/16 06:43 Intake Total 840 ml 2312 ml 40500 ml Output Total 1500 ml 2050 ml 81293 ml Balance -660 ml 262 ml 8677 ml Intake Oral 840 ml 490 ml 2770 ml IV Total 1822 ml 78677 ml Output Urine Total 1500 ml 2050 ml 90699 ml # Voids 3 # Bowel Movements 12 Exam General: Elderly female, sitting up in bed, in no acute distress. Appropriately interactive. HEENT: Normocephalic, atraumatic. External ears without defect. Pupils equal, round, and reactive to light. Anicteric sclerae. moist mucosa. Neck: Supple, nontender without lymphadenopathy or thyromegaly. No JVD. Pulmonary: Symmetric chest rise with equal air entry bilaterally, lungs clear to auscultation bilaterally. Normal respiratory effort, no use of accessory muscles. Cardiovascular: Regular rate and rhythm, normal S1,S2, no murmurs, rubs, or gallops appreciated. Abdomen: Soft, suprapubic tenderness, nondistended, bowel tones hypoactive. No hepatosplenomegaly or masses appreciated. Genitourinary: Chronic indwelling Robbins catheter changed (06/30/15). Extremities: Warm, well perfused without edema, clubbing or cyanosis. Skin: Normal temperature and texture; Dry skin. Chronic decubitus ulcers with dressing covering. IVs and Medications Medications Reviewed: Medications were reviewed in detail Lab and Diagnostics Result Diagram: 07/04/16 0530 07/04/16 0530 Microbiology Blood culture 2 preliminarily growing gram variable rods with identification and sensitivities to follow. Urine culture preliminarily growing gram-negative rods with identification and sensitivities to follow. Influenza screen negative. MRSA screen pending. Wound cultures: hip growing Staph aureus and sacral wound growing Proteus mirabilis. . X-Rays, CTs and MRIs X-RAY CHEST ONE VIEW, PORTABLE (07/03/16) IMPRESSION: 1. Left-sided PICC line with distal tip overlying the mid thoracic spine. Appearance is suspected to be related to patient's significant rotation. As clinical concern persists, repeat x-ray may be obtained with patient in better upright position for more adequate assessment. 2. Persistent, predominantly bibasilar opacities, appearing worse when compared to prior exam. Findings are likely related to pneumonia with areas of superimposed atelectasis and/or edema. Dictated and approved by: Elisabeth Grewal M.D. on 07/03/2016 at 9:17 X-RAY KUB (07/03/16) IMPRESSION: Rectal and left colonic stool is noted. No obstruction. Dictated and approved by: Elisabeth Grewal M.D. on 07/03/2016 at 9:12 X-RAY CHEST ONE VIEW, PORTABLE IMPRESSION: Decreased lung volumes. Increased degree of right minor fissural thickening may suggest evolving congestive heart failure. Dictated by: Russel Timmons M.D. on 06/30/2016 at 12:22 Approved by: Russel Timmons M.D. on 06/30/2016 at 12:22 CT ABDOMEN AND PELVIS WITHOUT CONTRAST IMPRESSION: 1. Soft tissue ulcer lies superficial to the posterior sacrum and does not appear to extend to the bony cortex. If there is persistent clinical suspicion for early sacral osteomyelitis, pre- and post contrast bony pelvis MRI may be considered for more sensitive evaluation. 2. Large amount of stool within the rectal vault may suggest fecal impaction. 3. Bilateral L5 pars defects, with grade 1 L5-S1 spondylolisthesis. 4. Nonacute right obturator ring healed fractures, age indeterminate moderate T12 vertebral body anterior wedge compression fracture, and nonacute mild L4 anterior wedge compression fracture. Dictated by: Russel Timmons M.D. on 06/30/2016 at 14:10 Approved by: Russel Timmons M.D. on 06/30/2016 at 14:10 . 12-lead ECG EKG: Sinus rhythm, heart rate 72, left axis, prolonged QTC otherwise normal intervals, early R-wave progression, no pathological Q waves or acute ischemic changes such as ST elevation or depression. . 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 Hospital day #5 1. Severe sepsis with shock, present on admission. Resolved. - Likely secondary to acute UTI as well as chronic stage IV decubitus ulcer. - Met criteria on admission with temp of 39.3, HR 110, RR 22 and lactic acid 4.3 with source of infection (urine, skin) - Fluid resuscitated and started on broad-spectrum antibiotics including: linezolid, meropenem, levofloxacin. Rec'd vanco/zosyn x1 dose in the ED. - Infectious disease consulted and following. Greatly appreciate Dr. Calderón's expertise and recommendations. 2. Acute bacteremia, present on admission. Active. - Likely secondary to acute urinary tract infection possibly sacral wound. Blood and urine cultures positive for Proteus mirabilis - Wound cultures growing: hip ulcer-Staph aureus and sacral ulcer Proteus mirabilis. - Continue antibiotics, per ID. 3. Chronic decubitus ulcers, present on admission. Active. - CT abd & pelvis without evidence of osteomyelitis. 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 - Wound care consulted and following. Wound cultures, as above - General surgery consulted, no need for urgent operative debridement. - Continue antibiotics, per ID. 4. Acute UTI, present on admission. Active. - Pt met sepsis criteria as above and was fluid resuscitated. Required pressor support initially. Remains hemodynamically stable. - Secondary to infected chronic indwelling Robbins catheter. Chronic indwelling Robbins catheter replaced. - WBC and procalcitonin trending down. Lactic acid normalized. - Blood and Urine cultures growing Proteus mirabilis. - Antibiotics per ID, as above. 5. Acute diarrhea, not present on admission. Active - Infectious vs resolution of fecal impaction following bowel regimen - Pt with loose stools for several days and significant amount of stool in colon without obstruction on KUB - Scheduled bowel regimen and patient continuing to have diarrhea. - Will check C.difficile pcr. 6. Fluid overload and acute dyspnea, not present on admission. Resolved. - Pt presented in septic shock and required aggressive fluid resuscitation. - Clinically hypervolemic on hospital day #3 with mild lower ext edema and bibasilar crackles - Pt noted some difficulty breathing, SpO2 high 90s on room air. - IV Furosemide, 20mg one time dose with symptomatic improvement and adequate diuresis. - Continue to monitor I/Os, additional diuresis as needed on daily basis. - Duonebs and albuterol prn for shortness of breath. 7. Chronic Malnutrition and electrolyte abnormalities, present on admission. Active. - Continue IV fluids and encourage PO intake - Monitor electrolytes and replace as needed. - Hotel Supplies Salesperson consultation, Ancelmo therapeutic drink, vitamin C and zinc added. 8. Acute kidney injury, present on admission. Resolved. - Likely due to hypoperfusion secondary to sepsis and hypovolemia/dehydration. - Continue IV fluids and avoid nephrotoxic medications. - Monitor daily CMP 9. Acute encephalopathy, secondary to acute infection, present on admission. Resolved. - Secondary to infection. Patient has no history of seizures and there was no recent trauma. - ABG was unrevealing. 10. Fecal impaction, acuity unknown, present on admission. Improving. - CT abd & pelvis with evidence consistent with fecal impaction. - KUB 07/03 showing significant amount of stool in colon but no obvious obstruction. - Scheduled bowel regimen and enema yesterday. 11. Chronic Hypertension, present on admission. Stable - Continue home dosing metoprolol tartrate 25mg bid 12. Chronic Hyperlipidemia, present on admission. Stable. - Continue home dosing atorvastatin, 20mg daily 13. Prior CVA w/residual left-sided deficit, chronic. - Speech therapy and physical therapy 14. History of colon cancer, s/p colon resection. Presume stable. Acetaminophen-fever/headache/mild/moderate pain Antiemetics, as needed Disposition: Anticipated discharge in 1-2 days, possibly to SNF. Patient has been refusing but advocating for SNF if he feels patient will get adequate wound care and physical therapy. . Pain Evaluation: Adequate Pain Control VTE Prophylaxis: Sub-Q Heparin (Unfractionated) VTE Mechanical Devices: Intermittant Pneumatic CD Resuscitation Status: DNR/DNI:Do Not Resuscitate/Intubate Attending Statement The patient was seen and examined together with Dr. Gracia on 07-04-16 and I agree with the history, exam and plan as outlined in the note above. Luli Gracia DO Jul 04, 2016 14:15 Tim Carnes MD Jul 05, 2016 17:49
--- NOTE | 2016-07-04 20:01 | NUR ---
Mentation Patient's mentation changed from past two shifts. Patient stated she was very sleepy, not as communicative, not very many smiles or laughs. Her affect was more passive and withdrawn than previous days. Wanting to hold this RNs hand and asked this RN to stay in room awhile. This RN obliged. Patient still cooperative with care inspite of mentation, eats well if someone encourages and makes time to visit. Will say she is not hungry, but if encouraged that food will make her stronger and heal faster will cooperate and eat. Patient continues to pick at IVs, Mepilex and dressings. This RN redirected and gave a sock rolled up to patient.
--- NOTE | 2016-07-04 23:05 | NUR ---
VITALS/MENTATION Pt cooperative with care, vitals stable. Pt took meds crushed in applesauce with no swallowing issues. Pt A&Ox3 early in the night when family was in the room. Pt became very passive and extremely tired after family left. No pain noted, Q2 turns.
[2016-07-05] VITALS (8 sets, daily range): BP systolic 111–152; BP diastolic 67–98; PULSE 77–96; RESP 16–18; O2SAT 94–97
[2016-07-05] MEDS: Dextrose 5% 0.45% NaCl 1,000 ML IV SCH ×3 (02:56→13:01)
[2016-07-05 03:28] LABS: BASOPHILS % (AUTO) 0.3 % (0-3); EOSINOPHILS % (AUTO) 6.1 % (0-5); Mean Corpuscular Hemoglobin 27.9 pg (27.0-35.0); Mean Corpuscular Volume 85.5 fL (81-100); NEUTROPHILS % (AUTO) 64.7 % (40-74); Platelet Count 193 bil/L (150-400)
[2016-07-05 03:55] LABS: Magnesium 1.6 mg/dL (1.6-2.6); Phosphorus 2.7 mg/dL (2.5-4.9)
[2016-07-05] MEDS: Albuterol-Ipratropium 3 mL Inhalation Solution NEB SCH ×4 (06:00→20:52)
[2016-07-05] MEDS: Polyethylene Glycol (PEG) 17 Gm Powder PO SCH (08:30)
--- NOTE | 2016-07-05 08:32 | PCM.PNMED ---
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 Hospital day #6. Overnight: There were no acute events. Telemetry overnight: Sinus rhythm, heart rate 70 to 90s, with rare PVCs. The patient is lying in bed and in no acute distress. She is tolerating every 2 hour turns. The patient endorses fatigue, however, she is feeling much better. Pain is well controlled and today she was able to finish an entire cup of Ancelmo therapeutic drink. Patient denies shortness of breath, fever, chills, abdominal pain, nausea or vomiting. . Exam Vital Signs Vital Sign - Last Date Time Temp Pulse Resp B/P Pulse Ox O2 Delivery O2 Flow Rate FiO2 07/05/16 05:35 96 07/05/16 03:34 Supplement Oxygen 07/05/16 03:08 36.9 16 111/67 94 07/01/16 04:00 2.00 Intake and Output 07/04/16 07/04/16 07/05/16 Cumulative From/Thru 15:00 23:00 07:00 06/30/16 11:18 - 07/05/16 05:58 Intake Total 1104 ml 1180 ml 48155 ml Output Total 2400 ml 2100 ml 15759 ml Balance -1296 ml -920 ml 6461 ml Intake Oral 50 ml 2820 ml IV Total 1054 ml 1180 ml 27529 ml Output Urine Total 2400 ml 2100 ml 37890 ml # Voids 3 # Bowel Movements 1 13 Exam General: Elderly female, sitting up in bed, in no acute distress. Appropriately interactive. HEENT: Normocephalic, atraumatic. External ears without defect. Pupils equal, round, and reactive to light. Anicteric sclerae. moist mucosa. Neck: Supple, nontender without lymphadenopathy or thyromegaly. No JVD. Pulmonary: Symmetric chest rise with equal air entry bilaterally, lungs clear to auscultation bilaterally. Normal respiratory effort, no use of accessory muscles. Cardiovascular: Regular rate and rhythm, normal S1,S2, no murmurs, rubs, or gallops appreciated. Abdomen: Soft, suprapubic tenderness, nondistended, bowel tones hypoactive. No hepatosplenomegaly or masses appreciated. Genitourinary: Chronic indwelling Robbins catheter changed (06/30/15). Extremities: Warm, well perfused without edema, clubbing or cyanosis. Skin: Normal temperature and texture; Dry skin. Chronic decubitus ulcers with dressing covering. . IVs and Medications Medications Reviewed: Medications were reviewed in detail Lab and Diagnostics Item Value Date Time Calcium Level 8.2 mg/dL L 07/05/16314 Phosphorus Level 2.7 mg/dL 07/05/16314 Magnesium Level 1.6 mg/dL 07/05/16314 Total Bilirubin 0.4 mg/dL 07/05/16314 Aspartate Amino Transf (AST/SGOT) 29 U/L 07/05/16314 Alanine Aminotransferase (ALT/SGPT) 13 U/L 07/05/16314 Alkaline Phosphatase 101 U/L 07/05/16314 Total Protein 5.0 g/dL L 07/05/16314 Albumin 1.8 g/dL L 07/05/16314 Result Diagram: 07/05/1631407/05/16314 Microbiology Blood culture 2 growing Proteus mirabilis with sensitivities in EMR. Urine culture growing Proteus mirabilis with sensitivities in EMR . Influenza screen negative. MRSA screen negative. Wound cultures: hip growing Staph aureus and sacral wound growing Proteus mirabilis with sensitivities in EMR. . X-Rays, CTs and MRIs X-RAY CHEST ONE VIEW, PORTABLE IMPRESSION: 1. Left-sided PICC line with distal tip overlying the mid thoracic spine. Appearance is suspected to be related to patient's significant rotation. As clinical concern persists, repeat x-ray may be obtained with patient in better upright position for more adequate assessment. 2. Persistent, predominantly bibasilar opacities, appearing worse when compared to prior exam. Findings are likely related to pneumonia with areas of superimposed atelectasis and/or edema. Dictated and approved by: Elisabeth Grewal M.D. on 07/03/2016 at 9:17 X-RAY KUB IMPRESSION: Rectal and left colonic stool is noted. No obstruction. Dictated and approved by: Elisabeth Grewal M.D. on 07/03/2016 at 9:12 X-RAY CHEST ONE VIEW, PORTABLE IMPRESSION: Decreased lung volumes. Increased degree of right minor fissural thickening may suggest evolving congestive heart failure. Dictated by: Russel Timmons M.D. on 06/30/2016 at 12:22 Approved by: Russel Timmons M.D. on 06/30/2016 at 12:22 CT ABDOMEN AND PELVIS WITHOUT CONTRAST IMPRESSION: 1. Soft tissue ulcer lies superficial to the posterior sacrum and does not appear to extend to the bony cortex. If there is persistent clinical suspicion for early sacral osteomyelitis, pre- and post contrast bony pelvis MRI may be considered for more sensitive evaluation. 2. Large amount of stool within the rectal vault may suggest fecal impaction. 3. Bilateral L5 pars defects, with grade 1 L5-S1 spondylolisthesis. 4. Nonacute right obturator ring healed fractures, age indeterminate moderate T12 vertebral body anterior wedge compression fracture, and nonacute mild L4 anterior wedge compression fracture. Dictated by: Russel Timmons M.D. on 06/30/2016 at 14:10 Approved by: Russel Timmons M.D. on 06/30/2016 at 14:10 . 12-lead ECG EKG: Sinus rhythm, heart rate 72, left axis, prolonged QTC otherwise normal intervals, early R-wave progression, no pathological Q waves or acute ischemic changes such as ST elevation or depression. . 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 Hospital day #6 1. Severe sepsis with shock, present on admission. Resolved. - Likely secondary to acute UTI as well as chronic stage IV decubitus ulcer. - Met criteria on admission with temp of 39.3, HR 110, RR 22 and lactic acid 4.3 with source of infection (urine, skin) - Fluid resuscitated and started on broad-spectrum antibiotics including: linezolid, meropenem, levofloxacin. Received vancomycin and Zosyn x1 dose in the ED. Patient will need to be on ertapenem (meropenem x 3 days) a total of 10 days, per ID. - Infectious disease consulted and following. Greatly appreciate Dr. Calderón's expertise and recommendations. 2. Acute bacteremia, present on admission. Active. - Likely secondary to acute urinary tract infection possibly sacral wound. Blood and urine cultures positive for Proteus mirabilis - Wound cultures growing: hip ulcer-Staph aureus and sacral ulcer Proteus mirabilis. - Continue antibiotics, per ID. 3. Chronic decubitus ulcers, present on admission. Active. - CT abd & pelvis without evidence of osteomyelitis. 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 - Wound care consulted and following. Wound cultures, as above - General surgery consulted, no need for urgent operative debridement. - Continue antibiotics, per ID. 4. Acute UTI, present on admission. Active. - Pt met sepsis criteria as above and was fluid resuscitated. Required pressor support initially. Remains hemodynamically stable. - Secondary to infected chronic indwelling Robbins catheter. Chronic indwelling Robbins catheter replaced. - WBC and procalcitonin trending down. Lactic acid normalized. - Blood and Urine cultures growing Proteus mirabilis. - Antibiotics per ID, as above. 5. Acute diarrhea, not present on admission. Active - Infectious vs resolution of fecal impaction following bowel regimen - Pt with loose stools for several days and significant amount of stool in colon without obstruction on KUB - Scheduled bowel regimen and patient continuing to have diarrhea. - Will check C.difficile pcr. 6. Fluid overload and acute dyspnea, not present on admission. Resolved. - Pt presented in septic shock and required aggressive fluid resuscitation. - Clinically hypervolemic on hospital day #3 with mild lower ext edema and bibasilar crackles - Pt noted some difficulty breathing, SpO2 high 90s on room air. - IV Furosemide, 20mg one time dose with symptomatic improvement and adequate diuresis. - Continue to monitor I/Os, additional diuresis as needed on daily basis. - Duonebs and albuterol prn for shortness of breath. 7. Chronic Malnutrition and electrolyte abnormalities, present on admission. Active. - Continue IV fluids and encourage PO intake - Monitor electrolytes and replace as needed. - Registered Sales Assistant consultation, Ancelmo therapeutic drink, vitamin C and zinc added. 8. Acute kidney injury, present on admission. Resolved. - Likely due to hypoperfusion secondary to sepsis and hypovolemia/dehydration. - Continue IV fluids and avoid nephrotoxic medications. - Monitor daily CMP 9. Acute encephalopathy, secondary to acute infection, present on admission. Resolved. - Secondary to infection. Patient has no history of seizures and there was no recent trauma. - ABG was unrevealing. 10. Fecal impaction, acuity unknown, present on admission. Improving. - CT abd & pelvis with evidence consistent with fecal impaction. - KUB 07/03 showing significant amount of stool in colon but no obvious obstruction. - Scheduled bowel regimen and enema yesterday. 11. Chronic Hypertension, present on admission. Stable - Continue home dosing metoprolol tartrate 25mg bid 12. Chronic Hyperlipidemia, present on admission. Stable. - Continue home dosing atorvastatin, 20mg daily 13. Prior CVA w/residual left-sided deficit, chronic. - Speech therapy and physical therapy 14. History of colon cancer, s/p colon resection. Presume stable. Acetaminophen-fever/headache/mild/moderate pain Antiemetics, as needed Disposition: Anticipated discharge in 1-2 days, possibly to SNF. Patient has been refusing but advocating for SNF if he feels patient will get adequate wound care and physical therapy. . VTE Prophylaxis: Sub-Q Heparin (Unfractionated) VTE Mechanical Devices: Intermittant Pneumatic CD Resuscitation Status: DNR/DNI:Do Not Resuscitate/Intubate Attending Statement The patient was seen and examined together with Dr. Murray on 07-05-16 and I agree with the history, exam and plan as outlined in the note above. Vy Murray DO Jul 05, 2016 08:32 Tim Carnes MD Jul 06, 2016 17:34
[2016-07-05] MEDS: Ascorbic Acid 500 mg Tablet PO SCH ×3 (09:12→19:58)
[2016-07-05] MEDS: Artificial Tears 15 mL Ophthalmic Solution BOTH_EYES SCH (09:12)
[2016-07-05] MEDS: Ertapenem Inj 1,000 MG in 0.9% Sodium Chloride 50 ML IV SCH (09:13)
[2016-07-05] MEDS: Heparin 5,000 Unit/mL Inj SUBQ SCH ×2 (09:13→19:57)
--- NOTE | 2016-07-05 13:05 | NUR ---
NUTRITION FOLLOW-UP: ASSESS: 85 YO female admitted with septic shock, which has resolved; however, now with UTI, bacteremia, likely secondary to acute urinary tract infection, possibly sacral wound. Blood and urine cultures positive for Proteus mirabilis. Wound cultures growing: hip ulcer-Staph aureus and sacral ulcer Proteus mirabilis. She has a sacral stage 4 pressure injury and right hip stage 2 and stage [address] met with pt and her during a previous visit. High calorie/protein nutrition therapy was discussed extensively. Pts prepares meals and smoothies for pt. He reports that his son has high calorie MREs that he would like to give his to help boost her nutrition. Wt is up 4.7 kg since admission in April. PMHX: CVA, colon, ca, SBO, HLD, osteoarthritis. LABS: Reviewed. K+ 3.3, Cr < 0.30, glu 103, Ca 8.2, PAB 6. MEDS:Reviewed. Lopressor, Miralax, Senna, Vitamin C, zinc. GI: Patient now having diarrhea; sample sent to rule out C. diff. SKIN: Sacral stage 4 Pressure injury and Right hip stage 2 and stage 3 pressure injuries. Visible muscle and subcutaneous fat loss in arms, shoulders, face, and neck. WT:52.0 kg, BMI 22.0 kg/m2, admit wt 48kg. Wt 07/2013: 58.7 kg. Wt Changes: 9.79 kg wt loss x9 months (17% = significant) DIET: Stimulation w/ HTL: PO 35% - 100% trays. Pt. noted to have completed her Ancelmo supplement today, ordered to enhance wound healing. EST. NEEDS (Wound healing): Kcals: 1965-2245kcal/day (35-40kcal/kg) Pro: 85-110g/day (1.5-2.0g/kg) NUTRITION DIAGNOSIS: 1) Increased nutrient needs related to increased demand for wound healing as evidence by Sacral stage 4 Pressure injury and Right hip stage 2 and stage 3 pressure injuries - PERSISTS. 2) Severe malnutrition of unclear etiology as evidenced by 17% wt loss x 9 months, and loss of LBM and subcutaneous fat and non-healing wounds - PERSISTS. 3) Inadequate oral intake related to decreased ability to consume sufficient energy as evidenced by current stimulation diet order - SLIGHTLY IMPROVED WITH ADDITION OF SUPPLEMENTS. NUTRITION INTERVENTION: 1) Reviewed nutrition therapy for wt gain. 2) Discussed importance of protein intake for wound healing. 3) Encouraged 5-6 small meals per day w/ high calorie/protein foods. 4) Will continue to send Ancelmo BID to promote wound healing. 5) Continue 1500 mg/d vitamin c and 30 mg/d zinc. MONITOR / EVAL: PO, ST, diet advc, wounds, wt, labs. GI, POC. Will continue to monitor per high nutrition risk guidelines.
--- NOTE | 2016-07-05 16:10 | NUR ---
[facility] Signed
--- NOTE | 2016-07-05 16:15 | NUR ---
Social Work Continued Discharge Planning D: EMR Reviewed. Pt is on day 5 of hospitalization for Septic Shock. Pt is not medically stable at this time. SW met with Pt and Pt's spouse at bedside to continue dcp planning. Pt's spouse continues to want Pt to discharge to SNF. It is difficult to determine Pt's wishes, SW will need to meet with Pt separately from to discuss. APS report made on 07/02/16, SW will need to follow up on the outcome. Referral has been sent to [facility]. SW called and spoke with Temi Victorino to obtain update. Ms. Gleason reports Pt and family as medically/socially complex and unsure if they will be able to meet Pt/family needs. SW requested bedside assessment. Ms. Gleason will be able to speak with [facility] director and speak further with Pt's spouse on Thursday with bedside assessment to follow. Pt's spouse interested in second referral to be sent to [facility] where Pt previously stayed. Referral provided, clinicals faxed, awaiting decision. SW will continue to follow. A: Pt who requires a higher level of care P: SW anticipates Pt to discharge to SNF when medically stable. Referrals sent to [facility] who will schedule a bedside assessment at the beginning of next week. Second referral sent to [facility] where Pt previously stayed. SW following. CHEPE Downing
--- NOTE | 2016-07-05 19:36 | NUR ---
Dressing change/Bed mobility/PO intake Patient alert and oriented x3 throughout shift although forgetful with some mumbled speech. Tolerated q2 turns fairly, some vocal complaints with turning but otherwise reported no pain throughout shift. Patient had one episode of loose stool at approx 1845, sacral mepilex removed, area around open wound cleaned, new aqua cell dressing applied and covered with new mepilex per wound care orders. Very poor PO intake, eating only a few bites of each meal -- no reports of nausea.
--- NOTE | 2016-07-05 23:13 | NUR ---
MENTATION/BM Pt very tired at beginning of shift. A&Ox3 with forgetfulness. Pt had small BM, bedding and pad changed, pt repositioned. No pain reported or noted during repositioning. Pt passive with care, Q2 turns. Vitals stable, pt resting comfortably at this time. Addendum: 07/06/16 at 0552 by HI YE RN Morning labs came back Mag 1.4, K+ 2.9, Phos 2.4, Creat 0.30. Potassium/Magnesium protocol. New orders for Magnesium Sulf 4g/100ml, Potassium Chloride 40 mEq, Potassium Phos 20 Mmol in D5 250 ml.
[2016-07-06] VITALS (10 sets, daily range): BP systolic 112–148; BP diastolic 73–90; PULSE 78–89; RESP 16–20; O2SAT 95–96
[2016-07-06] MEDS: Heparin 5,000 Unit/mL Inj SUBQ SCH ×4 (00:20→21:10)
[2016-07-06] MEDS: Dextrose 5% 0.45% NaCl 1,000 ML IV SCH ×3 (00:21→22:42)
[2016-07-06 03:47] LABS: BASOPHILS % (AUTO) 0.3 % (0-3); EOSINOPHILS % (AUTO) 6.5 % (0-5); MONOCYTES % (AUTO) 9.2 % (4-12); Mean Corpuscular Hemoglobin 27.6 pg (27.0-35.0); Mean Corpuscular Volume 86.1 fL (81-100); NEUTROPHILS % (AUTO) 66.8 % (40-74); Platelet Count 218 bil/L (150-400)
[2016-07-06 04:13] LABS: Magnesium 1.4 mg/dL (1.6-2.6); Phosphorus 2.4 mg/dL (2.5-4.9)
[2016-07-06] MEDS ORDERED: Mag Sulf 4 Gm/100 mL IV Premix (Mag < 1.6 & Creat < 2) IV ONE (05:35)
[2016-07-06] MEDS ORDERED: POTASSIUM PHOS IV ONE (06:00)
[2016-07-06] MEDS ORDERED: DEXTROSE 5% IV ONE (06:00)
[2016-07-06] MEDS: Potassium Chloride 20 mEq SR Tab (K < 3 & Creat <2) PO SCH ×2 (06:36→08:05)
[2016-07-06] MEDS: Albuterol-Ipratropium 3 mL Inhalation Solution NEB SCH (07:46)
[2016-07-06] MEDS: Ascorbic Acid 500 mg Tablet PO SCH ×3 (07:49→18:22)
[2016-07-06] MEDS: Ertapenem Inj 1,000 MG in 0.9% Sodium Chloride 50 ML IV SCH (07:50)
[2016-07-06] MEDS: Artificial Tears 15 mL Ophthalmic Solution BOTH_EYES SCH (07:50)
[2016-07-06] MEDS: Polyethylene Glycol (PEG) 17 Gm Powder PO SCH (08:04)
--- NOTE | 2016-07-06 13:05 | PROG NOTE ---
[address] [address] PROGRESS NOTE PATIENT: RONNA MENDEZ : 1930 MR#: [id number] ADMIT: 06/30/2016 JOB ID: [id number] DATE: 07/06/2016 INFECTIOUS DISEASE FOLLOWUP NOTE: REASON FOR FOLLOWUP: Bacteremic drug-resistant Proteus urinary tract infection with Staph aureus infected decubitus ulcers. INTERVAL HISTORY: Over the past three days since I have last seen the patient she is much improved. She now denies any fevers, chills, or shortness of breath. She denies any GI symptoms and states she thinks she is about ready to go home. PHYSICAL EXAMINATION: Reveals an afebrile woman, and she has been afebrile since the initial 39.3 degree temperature back seven days ago when she was first admitted. Temp today 36.5, pulse 88, respiratory rate 16, blood pressure 152/85. She is saturating well on room air. Examination of the oral cavity is unremarkable. Lungs relatively clear, with fairly good air flow bilaterally. Cardiac tones without change. Abdomen soft and nontender. No skin rash noted. LABORATORIES: Include a white count of 7000, platelet count 218,000, creatinine less than 0.3. Liver function tests normal. Procalcitonin 1.3 today, which is down from a level of greater than 100 a week ago. Micro studies were previously reviewed but include blood and urine which grew a fairly resistant Proteus. The decubitus ulcers also grew some Proteus as well as MSSA. IMPRESSION: This is a debilitated elderly woman who was admitted with sepsis due to a bacteremic Proteus urinary tract infection as well as infected decubitus and possibly some underlying aspiration pneumonia. She has been improving but still obviously quite frail. At this point I think it is important that we finish a good course of antibiotics for the bacteremic multi-drug resistant Proteus urinary tract infection. This organism also seemed to be involved in part of her decubitus ulcer problem. I agree with the notes in the chart which suggest that the patient would benefit from at least a short stay in a residential facility or rehabilitation facility to get stronger and improve her nutrition before transition back to home. RECOMMENDATIONS: I would continue with the ertapenem through July 11, which would be this Thursday I believe. There are no other active ID issues at this point, so I think ID will go ahead and sign off at this juncture, but thank you very much for this consult.
[2016-07-06 13:36] LABS: Magnesium 2.5 mg/dL (1.6-2.6); Phosphorus 3.1 mg/dL (2.5-4.9)
--- NOTE | 2016-07-06 15:55 | NUR ---
Daily update Patient alert and forgetful. Patient was cooperative with care. Patient participated with PT today. Patient continues to have Robbins catheter patent and draining to gravity. Patient has been repositioned every 2 hours. Patient was at bedside today.
--- NOTE | 2016-07-06 17:57 | PCM.PNMED ---
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 Hospital day #7 No acute events overnight. Per nursing, patient alert and forgetful but cooperative with care. Patient is alert and oriented x3 this morning. She denies pain or difficulty breathing and states that she 'doesn't known anything medical' but that she is feeling much better. Exam Vital Signs Vital Sign - Last Date Time Temp Pulse Resp B/P Pulse Ox O2 Delivery O2 Flow Rate FiO2 07/06/16 07:47 88 16 96 Room Air 07/06/16 07:40 122/85 07/06/16 03:16 36.5 07/01/16 04:00 2.00 Intake and Output 07/05/16 07/05/16 07/06/16 Cumulative From/Thru 15:00 23:00 07:00 06/30/16 11:18 - 07/06/16 06:15 Intake Total 1600 ml 1120 ml 84730 ml Output Total 1100 ml 2200 ml 94956 ml Balance 500 ml -1080 ml 5881 ml Intake Oral 350 ml 0 ml 3170 ml IV Total 1250 ml 1120 ml 07684 ml Output Urine Total 1100 ml 2200 ml 91489 ml # Voids 3 # Bowel Movements 1 14 Exam General: Elderly female, sitting up in bed, in no acute distress. Appropriately interactive. HEENT: Normocephalic, atraumatic. PERRLA. Anicteric sclerae. moist mucosa. Neck: Supple, nontender without lymphadenopathy or thyromegaly. No JVD. Pulmonary: Symmetric chest rise with equal air entry bilaterally, lungs clear to auscultation bilaterally. Cardiovascular: Regular rate and rhythm, normal S1,S2, no murmurs, rubs, or gallops appreciated. Abdomen: Soft, suprapubic tenderness, nondistended, bowel tones hypoactive. No hepatosplenomegaly or masses appreciated. Genitourinary: Chronic indwelling Robbins catheter changed (06/30/15). Extremities: Warm, well perfused without edema, clubbing or cyanosis. Skin: Normal temperature and texture; Dry skin. Chronic decubitus ulcers with dressing covering. IVs and Medications Medications Reviewed: Medications were reviewed in detail Lab and Diagnostics White Blood Count 7.0, Red Blood Count 3.59, Hemoglobin 9.9, Hematocrit 30.9, Mean Corpuscular Volume 86.1, Mean Corpuscular Hemoglobin 27.6, Mean Corpuscular Hemoglobin Concent 32.0, Red Cell Distribution Width 15.6, Platelet Count 218, Neutrophils (%) (Auto) 66.8, Lymphocytes (%) (Auto) 16.5, Monocytes ( %) (Auto) 9.2, Eosinophils (%) (Auto) 6.5, Basophils (%) (Auto) 0.3 Sodium Level 143, Potassium Level 2.9, Chloride Level 103, Carbon Dioxide Level 30, Blood Urea Nitrogen 8, Creatinine < 0.30, Estimat Glomerular Filtration Rate 304, Glucose Level 89, Calcium Level 7.6, Phosphorus Level 2.4, Magnesium Level 1.4, Albumin 2.0 Result Diagram: 07/06/1633407/06/16334 Microbiology Blood culture 2 growing Proteus mirabilis with sensitivities in EMR. Urine culture growing Proteus mirabilis with sensitivities in EMR . Influenza screen negative. MRSA screen negative. Wound cultures: hip growing Staph aureus and sacral wound growing Proteus mirabilis with sensitivities in EMR. . X-Rays, CTs and MRIs X-RAY CHEST ONE VIEW, PORTABLE IMPRESSION: 1. Left-sided PICC line with distal tip overlying the mid thoracic spine. Appearance is suspected to be related to patient's significant rotation. As clinical concern persists, repeat x-ray may be obtained with patient in better upright position for more adequate assessment. 2. Persistent, predominantly bibasilar opacities, appearing worse when compared to prior exam. Findings are likely related to pneumonia with areas of superimposed atelectasis and/or edema. Dictated and approved by: Elisabeth Grewal M.D. on 07/03/2016 at 9:17 X-RAY KUB IMPRESSION: Rectal and left colonic stool is noted. No obstruction. Dictated and approved by: Elisabeth Grewal M.D. on 07/03/2016 at 9:12 X-RAY CHEST ONE VIEW, PORTABLE IMPRESSION: Decreased lung volumes. Increased degree of right minor fissural thickening may suggest evolving congestive heart failure. Dictated by: Russel Timmons M.D. on 06/30/2016 at 12:22 Approved by: Russel Timmons M.D. on 06/30/2016 at 12:22 CT ABDOMEN AND PELVIS WITHOUT CONTRAST IMPRESSION: 1. Soft tissue ulcer lies superficial to the posterior sacrum and does not appear to extend to the bony cortex. If there is persistent clinical suspicion for early sacral osteomyelitis, pre- and post contrast bony pelvis MRI may be considered for more sensitive evaluation. 2. Large amount of stool within the rectal vault may suggest fecal impaction. 3. Bilateral L5 pars defects, with grade 1 L5-S1 spondylolisthesis. 4. Nonacute right obturator ring healed fractures, age indeterminate moderate T12 vertebral body anterior wedge compression fracture, and nonacute mild L4 anterior wedge compression fracture. Dictated by: Russel Timmons M.D. on 06/30/2016 at 14:10 Approved by: Russel Timmons M.D. on 06/30/2016 at 14:10 . 12-lead ECG EKG: Sinus rhythm, heart rate 72, left axis, prolonged QTC otherwise normal intervals, early R-wave progression, no pathological Q waves or acute ischemic changes such as ST elevation or depression. . 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 Hospital day #7 1. Severe sepsis with shock, present on admission. Resolved. - Likely secondary to acute UTI as well as chronic stage IV decubitus ulcer - Met criteria on admission with temp of 39.3, HR 110, RR 22 and lactic acid 4.3 with source of infection (urine, skin) as well as encephalopathy - Day 7 of antibiotics, will need 3 more days of antibiotics, per ID. Currently tx with ertapenem 2. Acute bacteremia, present on admission. Active. - Likely secondary to acute UTI and possibly sacral wound. - Blood, urine and sacral wound cultures positive for Proteus mirabilis - Continue antibiotics, as above. 3. Chronic decubitus ulcers, present on admission. Active. - Cultures positive for Proteus and Staph. Staging, per wound care. - CT abd & pelvis without evidence of osteomyelitis. - General surgery consulted, no need for urgent operative debridement. - Continue antibiotics, as above. 4. Acute UTI, present on admission. Improving - Pt with chronic indwelling Robbins catheter, possible source for infection. Replaced 06/30/16 - WBC and procalcitonin trending down. Lactic acid normalized. - Continue antibiotics, as above 5. Acute diarrhea, not present on admission. Improving - Infectious vs resolution of fecal impaction following bowel regimen - Scheduled bowel regimen and patient continuing to have diarrhea. - C.difficile pcr. pending 6.Chronic Malnutrition and electrolyte abnormalities, present on admission. Active. - Continue IV fluids and encourage PO intake - Monitor electrolytes and replace as needed. - Brush Sander consultation, Ancelmo therapeutic drink, vitamin C and zinc added. 8. Acute kidney injury, present on admission. Resolved. - Likely due to hypoperfusion secondary to sepsis and hypovolemia/dehydration. - Continue IV fluids and avoid nephrotoxic medications. - Monitor daily CMP 9. Acute encephalopathy, secondary to acute infection, present on admission. Resolved. - Secondary to infection. Patient has no history of seizures and there was no recent trauma. 10. Chronic Hypertension, present on admission. Stable - Continue home dosing metoprolol tartrate 25mg bid 11. Prior CVA w/residual left-sided deficit, chronic. - Speech therapy and physical therapy - Continue home dosing atorvastatin, 20mg daily 12. History of colon cancer, s/p colon resection. Presume stable. Acetaminophen-fever/headache/mild/moderate pain Antiemetics, as needed Disposition: Anticipated discharge in 1-2 days pending SNF placement. Patient was living at home with and requires significant assistance with ADLs. EPS case filed and active. Pain Evaluation: Adequate Pain Control VTE Prophylaxis: Sub-Q Heparin (Unfractionated) VTE Mechanical Devices: Intermittant Pneumatic CD Resuscitation Status: DNR/DNI:Do Not Resuscitate/Intubate Attending Statement The patient was seen and examined together with Dr. Gracia on 07-06-16 and I agree with the history, exam and plan as outlined in the note above. Luli Gracia DO Jul 06, 2016 08:22 Tim Carnes MD Jul 07, 2016 16:22
--- NOTE | 2016-07-06 23:28 | NUR ---
TELE Pt had tele D/C'd per MD telephone order. Pt had stable vitals, no pain, patent triple lumen PICC, Q2 turns for skin integrity and comfort. Pt very tired and passive with care. No other issues noted.
[2016-07-07 03:16] VITALS: BP 132/83; PULSE 82; RESP 16; O2SAT 97
[2016-07-07 03:24] LABS: BASOPHILS % (AUTO) 0.6 % (0-3); EOSINOPHILS % (AUTO) 4.9 % (0-5); MONOCYTES % (AUTO) 10.3 % (4-12); Mean Corpuscular Hemoglobin 27.9 pg (27.0-35.0); Mean Corpuscular Volume 86.2 fL (81-100); Platelet Count 205 bil/L (150-400)
[2016-07-07 03:55] LABS: Magnesium 2.1 mg/dL (1.6-2.6); Phosphorus 2.1 mg/dL (2.5-4.9)
[2016-07-07] MEDS: Polyethylene Glycol (PEG) 17 Gm Powder PO SCH (07:48)
[2016-07-07 07:55] VITALS: BP 117/74; PULSE 86; RESP 16; O2SAT 96
[2016-07-07] MEDS: Artificial Tears 15 mL Ophthalmic Solution BOTH_EYES SCH (07:59)
[2016-07-07] MEDS: Ascorbic Acid 500 mg Tablet PO SCH ×3 (07:59→17:30)
[2016-07-07] MEDS: Heparin 5,000 Unit/mL Inj SUBQ SCH ×2 (07:59→17:30)
[2016-07-07] MEDS: Ertapenem Inj 1,000 MG in 0.9% Sodium Chloride 50 ML IV SCH (07:59)
[2016-07-07] MEDS: Dextrose 5% 0.45% NaCl 1,000 ML IV SCH ×2 (08:09→23:06)
--- NOTE | 2016-07-07 10:35 | NUR ---
Refaxed facesheet to [facility] and [facility]. Marked as urgent and talked to [facility] and [facility]. This patient is likely to discharge today. Updated CAVALRY OFFICER Addendum: 07/07/16 at 1101 by VIVIENNE ZAMBRANO CM Spoke with Temi regional director of admissions at [facility] and she is still needing to review this with her director. They are feeling they would need to do an onsite but have no idea when this could happen. This was conveyed over the weekend as well. Also called [facility] to confirm her stay there and check if her medicare days. Updated CAVALRY OFFICER Addendum: 07/07/16 at 1258 by VIVIENNE ZAMBRANO CM [facility] can accept patient today with [facility] to follow [facility] can clinically accept but have no beds and do not plan to have discharges until .
[2016-07-07] MEDS ORDERED: INVANZ1I IV (13:15)
--- NOTE | 2016-07-07 13:26 | PCM.DIMED ---
GREG GUNTER DO 07/07/16 1326: Discharge Instructions Date of Service Jul 08, 2016 Dates of Hospitalization Jun 30, 2016 at 16:44 Discharge Diagnosis Discharge Diagnosis 1. Severe sepsis with shock, present on admission. Resolved. 2. Acute bacteremia, present on admission. Under treatment. 3. Chronic decubitus ulcers, present on admission. Active. 4. Acute UTI, present on admission. Improving. 5. Acute diarrhea, not present on admission. Soft. 6.Chronic Malnutrition and electrolyte abnormalities, present on admission. Active. 8. Acute kidney injury, present on admission. Resolved. 9. Acute encephalopathy, secondary to acute infection, present on admission. Resolved. 10. Chronic Hypertension, present on admission. Stable 11. Prior CVA w/residual left-sided deficit, chronic. 12. History of colon cancer, s/p colon resection. Presumed stable. Medication Instructions Upon discharge you will need to complete antibiotic course of ertapenem as follows: - Ertapenem 1000 mg IV every 24 hours for 3 additional days completing on . This will need to be completed at the hospital daily. No other changes to your medications were made during hospitalization. Please resume home medication regimen. Diet No restrictions (Please consider adding nutritional supplement such as Ancelmo as discussed. ) Activity Home Health Phyical Therapy Call your provider Fever or Chills, Shortness of breath, Vomitting, Excessive diarrhea, Weakness ( unilateral) Patient Instructions - During hospitalization you were found to have a urinary tract infection, blood infection, and infection of your ulcers. - Please complete the antibiotic regimen of ertapenem as instructed above. You will need to return to the hospital for these daily infusions. - [facility] will be contacting you and should be to your home on Thursday or to help with your care. - Please follow-up with your primary care provider, Dr. Rush, in 4-5 days. - Please follow-up with wound care clinic in 1 week. Follow-up Provider: Cesar Rush MD Follow-up with PCP in: 1 week Provider: [facility] Follow-up in: 1 week Darinel Covington MD 07/08/16 7258: Discharge Instructions Attending's Statement The patient was seen and examined together with Dr. Gunter on 07/08/2016 and I agree with the history, exam and plan as outlined in the note above. . GREG GUNTER DO Jul 07, 2016 13:26 Darinel Covington MD Jul 08, 2016 18:18
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
[2016-07-07 13:49] VITALS: BP 128/76; PULSE 84; RESP 16; O2SAT 97
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
[2016-07-07 15:30] VITALS: BP 122/76; PULSE 81; RESP 16; O2SAT 95
--- NOTE | 2016-07-07 15:35 | PCM.PNMED ---
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 Hospital day 8. No acute events overnight. Per nursing, patient alert and appropriately responsive. No pain with wound dressing. Patient is alert and oriented x3 this morning. Denies decreased appetite but continues to eat only small portions. Speech following and Ancelmo supplemented. Exam Vital Signs Vital Sign - Last Date Time Temp Pulse Resp B/P Pulse Ox O2 Delivery O2 Flow Rate FiO2 07/07/16 13:49 36.8 84 16 128/76 97 Room Air 07/01/16 04:00 2.00 Intake and Output 07/06/16 07/06/16 07/07/16 Cumulative From/Thru 15:00 23:00 07:00 06/30/16 11:18 - 07/07/16 06:33 Intake Total 3114 ml 1710 ml 13143 ml Output Total 2100 ml 1200 ml 10456 ml Balance 1014 ml 510 ml 7405 ml Intake Oral 600 ml 610 ml 4380 ml IV Total 2514 ml 1100 ml 55925 ml Output Urine Total 2100 ml 1200 ml 26311 ml # Voids 3 # Bowel Movements 2 16 Exam General: Elderly female, sitting up in bed, in no acute distress. Appropriately interactive. HEENT: Normocephalic, atraumatic. PERRLA. Anicteric sclerae. moist mucosa. Neck: Supple, nontender without lymphadenopathy or thyromegaly. No JVD. Pulmonary: Symmetric chest rise with equal air entry bilaterally, lungs clear to auscultation bilaterally. Cardiovascular: Regular rate and rhythm, normal S1,S2, no murmurs, rubs, or gallops appreciated. Abdomen: Soft, suprapubic tenderness, nondistended, bowel tones hypoactive. No hepatosplenomegaly or masses appreciated. Genitourinary: Chronic indwelling Robbins catheter changed (06/30/15). Extremities: Warm, well perfused without edema, clubbing or cyanosis. Skin: Normal temperature and texture; Dry skin. Chronic decubitus ulcers with dressing covering. Lab and Diagnostics Result Diagram: 07/07/16 0300 07/07/16 0300 Microbiology Blood culture 2 growing Proteus mirabilis with sensitivities in EMR. Urine culture growing Proteus mirabilis with sensitivities in EMR . Influenza screen negative. MRSA screen negative. Wound cultures: hip growing Staph aureus and sacral wound growing Proteus mirabilis with sensitivities in EMR. . X-Rays, CTs and MRIs X-RAY CHEST ONE VIEW, PORTABLE IMPRESSION: 1. Left-sided PICC line with distal tip overlying the mid thoracic spine. Appearance is suspected to be related to patient's significant rotation. As clinical concern persists, repeat x-ray may be obtained with patient in better upright position for more adequate assessment. 2. Persistent, predominantly bibasilar opacities, appearing worse when compared to prior exam. Findings are likely related to pneumonia with areas of superimposed atelectasis and/or edema. Dictated and approved by: Elisabeth Grewal M.D. on 07/03/2016 at 9:17 X-RAY KUB IMPRESSION: Rectal and left colonic stool is noted. No obstruction. Dictated and approved by: Elisabeth Grewal M.D. on 07/03/2016 at 9:12 X-RAY CHEST ONE VIEW, PORTABLE IMPRESSION: Decreased lung volumes. Increased degree of right minor fissural thickening may suggest evolving congestive heart failure. Dictated by: Russel Timmons M.D. on 06/30/2016 at 12:22 Approved by: Russel Timmons M.D. on 06/30/2016 at 12:22 CT ABDOMEN AND PELVIS WITHOUT CONTRAST IMPRESSION: 1. Soft tissue ulcer lies superficial to the posterior sacrum and does not appear to extend to the bony cortex. If there is persistent clinical suspicion for early sacral osteomyelitis, pre- and post contrast bony pelvis MRI may be considered for more sensitive evaluation. 2. Large amount of stool within the rectal vault may suggest fecal impaction. 3. Bilateral L5 pars defects, with grade 1 L5-S1 spondylolisthesis. 4. Nonacute right obturator ring healed fractures, age indeterminate moderate T12 vertebral body anterior wedge compression fracture, and nonacute mild L4 anterior wedge compression fracture. Dictated by: Russel Timmons M.D. on 06/30/2016 at 14:10 Approved by: Russel Timmons M.D. on 06/30/2016 at 14:10 . 12-lead ECG EKG: Sinus rhythm, heart rate 72, left axis, prolonged QTC otherwise normal intervals, early R-wave progression, no pathological Q waves or acute ischemic changes such as ST elevation or depression. . 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 Hospital day 8. 1. Severe sepsis with shock, present on admission. Resolved. - Likely secondary to acute UTI as well as chronic stage IV decubitus ulcer - Met criteria on admission with temp of 39.3, HR 110, RR 22 and lactic acid 4.3 with source of infection (urine, skin) as well as encephalopathy - Ertapenem 1000 mg every 24 hours started on 07/02/16. 10 day course per ID. 2. Acute bacteremia, present on admission. Active. - Likely secondary to acute UTI and possibly sacral wound. - Blood, urine and sacral wound cultures positive for Proteus mirabilis - Continue antibiotics, as above. 3. Chronic decubitus ulcers, present on admission. Active. - Cultures positive for Proteus and Staph. Staging, per wound care. - CT abd & pelvis without evidence of osteomyelitis. - General surgery consulted, no need for urgent operative debridement. - Continue antibiotics, as above. 4. Acute UTI, present on admission. Improving - Pt with chronic indwelling Robbins catheter, possible source for infection. Replaced 06/30/16 - WBC and procalcitonin trending down. Lactic acid normalized. - Continue antibiotics, as above 5. Acute diarrhea, not present on admission. Improving - Infectious vs resolution of fecal impaction following bowel regimen - Scheduled bowel regimen and patient continuing to have diarrhea. - C.difficile PCR negative. 6.Chronic Malnutrition and electrolyte abnormalities, present on admission. Active. - Continue IV fluids and encourage PO intake - Monitor electrolytes and replace as needed. - Elder Assistant consultation, Ancelmo therapeutic drink, vitamin C and zinc added. 8. Acute kidney injury, present on admission. Resolved. - Likely due to hypoperfusion secondary to sepsis and hypovolemia/dehydration. - Avoid nephrotoxic medications. - Monitor daily CMP 9. Acute encephalopathy, secondary to acute infection, present on admission. Resolved. - Secondary to infection. Patient has no history of seizures and there was no recent trauma. - Alert and oriented 3. 10. Chronic Hypertension, present on admission. Stable - Continue home dosing metoprolol tartrate 25mg bid 11. Prior CVA w/residual left-sided deficit, chronic. - Speech therapy and physical therapy following. - Continue home dosing atorvastatin, 20mg daily 12. History of colon cancer, s/p colon resection. Presume stable. Acetaminophen-fever/headache/mild/moderate pain Antiemetics, as needed Disposition: Anticipated discharge in 1-2 days pending SNF placement or home infusion services for completion of ertapenem course. Patient was living at home with and requires significant assistance with ADLs. EPS case filed and active. Pain Evaluation: Adequate Pain Control VTE Prophylaxis: Sub-Q Heparin (Unfractionated) VTE Mechanical Devices: Intermittant Pneumatic CD Resuscitation Status: DNR/DNI:Do Not Resuscitate/Intubate Attending Statement The patient was seen and examined together with Dr. Gunter on 07/07/2016 and I agree with the history, exam and plan as outlined in the note above. . GREG GUNTER DO Jul 07, 2016 15:35 Darinel Covington MD Jul 08, 2016 18:18
--- NOTE | 2016-07-07 15:56 | PCM.PALLBR ---
Palliative Care Recommendation Summary of palliative recommendations: Symptom management (Pain/other): pt, and daughter all reported on 07/04 that she is having some moderate pain with moving in bed to get wound care. public health internship suggested this is more likely due to MK pain in back rather than pain related to decubiti. 1. Start 1mg IV morphine 15 minutes prior to dressing changes of decubiti. Repeat dose once in 15 minutes if needed. 2. Start scheduled po tylenol 325 qAC and HS. 3. D/C prn tylenol 975mg order that originated from admission template orders. On review of MAR on 07/07, tylenol given once over weekend and morphine once in mid-afternoon 07/04. No need for any changes in pain management based on actual low use. Baseline Function: Patient says at [facility] she was able to walk with assistance, but she has not been out of bed at home or this admission. DPOA/Advanced Directives/POLST: 1. Code: Dr. Cruz reviewed CODE STATUS with patient on 07/02. Patient choose: no machines/allow natural /DO NOT RESUSCITATE/ DO NOT INTUBATE. This corresponds with previous discussion during office visit documented approximately 2 years ago. It is also the understanding of her daughter as to her wishes. Her feels this is only appropriate if two physicians deem some level of futility. He is concerned that patient does not understand the complexities of the question. Based on discussion 07/02 as well as discussion 2 years ago in the office, Dr. Cruz (who is her former PCP) believes patient does understand and that her wishes are DO NOT RESUSCITATE. 2. Advanced Directives: At 07/[address] Love, pt, and dtr Isabell, the Cornel produced a living will signed by patient and notarized in 1985 that also states she would not want prolongation of life when terminally ill and would not want artificial interventions such as intubation, ventilation or feeding tube. Dr. Love reiterated to Cornel, that providers will follow Norah's wishes and she has consistently said to allow a natural . Norah became upset that her was upset and asked that we stop talking about this subject. On meeting Norah alone on 07/04, Dr. Love asked her wishes and she really doesn't want complicated interventions with machines, but does not like to oppose her . Family/emotional support: complex with good intent. 07/03: Dr. Love met separately with daughter Isabell who has several concerns: 1. She feels that both of her parents having been showing signs of cognitive deficits, and poor judgement. 2. She states that her father is not strong enough to lift a bag of groceries , and likely not strong enough to turn his in bed or help her change her disposable underwear (she is incontinent of bladder and bowel). Patient has been using disposable underwear since 01/2016. 3. She believes that because of #1 and #2, her mother developed decubiti, and then they became infected. 4. She states that her parents are financially comfortable and could afford to hire private nursing help to at home, but her father refuses to do so. Dr. Love encouraged Isabell to report this information to APS, which had a case open on her mother in late March 2016, and then closed it. Isabell is also pursuing help from an criminal attorney to see if there is any other way she can protect her mother from further neglect due to her parents' cognitive deficits. By observation at our 07/03 family meeting, Dr. Love does suspect that Cornel is having some cognitive deficits, he has difficulty understanding that his has underlying debility from her decreased appetite, weight loss and thus is more susceptible to skin breakdown when in bed. He doesn't understand, when counseled, that CPR after her heart stops would not bring her back to her current ability to think and interact with him. Patient Goals: 1. Patient wants to be told the truth about his/her illness, even if it is unpleasant. 2. Patient would like to be told prognosis when it can be predicted, to better guide treatment decisions. 3. Patient would choose quality of life over quantity of life. Specifically patient declines an option for feeding tube 4. Patient would request that comfort care take priority over cognitive/mental confusion. Disposition: 1. Disposition is for placement in the ECF. She will need nutritional support as well as wound management. I think she will benefit from rehabilitation and physical therapy.Her prefers [facility] choice is [facility], and 2nd choice is [facility]. Discussed with CM on 07/07, and it is now possible that pt will discharge home with home health services on 07/08. and [facility] both unable to offer a bed. In my clinical opinion, there is a high risk for re-admission with this discharge plan as we know that has not been able to provide adequate care in the home (unintentional neglect) due to his poor health status and lack of cognitive insight re: his and her frail health. Problems: End of Life Preferences DNR/DNI no feeding tube Disposition When medically stable plan would be to discharge to [facility]- for nutritional support wound management and the physical therapy Resuscitation Status Resuscitation Status: DNR/DNI:Do Not Resuscitate/Intubate POLST Updates/Changes Previous POLST?: No (patient has declined completing a POLSTin the past and present- she does not trust signing things) Artificially Admin Nutrition: No Artifical Nutrition by Tube Total time 35 minutes; >50% face to face with patient and/or family, providing counselling regarding plans and recommendations, and in care coordination with his/her medical teams. Palliative Brief Note Date of Service Jul 07, [address] Cruz, now on Palliative Care Team, was patient's PCP for many years- more recently followed by [facility] PORTILLO Patient Identification: Mrs. Norah Serna is a 85-year-old female hx of CVA 2015 with hospitalization at [facility] up to [facility] rehab for 2-3 months. Her was dissatisfied with her care and blames [facility] and [facility] for not recognizing SBO that was then evident on CT obtained due to acute onset N/ V. She required surgical intervention for SBO and he took her home for management. He has had home health assistance but switched companies due to his discontent with their care. Hospital Course: Patient admitted 06/30/16 for obtundation and sepsis, which seems now to be related to her indwelling palencia. She also was found on admission to have severe decubiti. She was evaluated by surgery regarding debridement of her decubitus ulcers, and they feel she does not need sharp debridement and can follow-up in outpatient wound clinic. She is extremely malnourished with albumin of 1.8 and prealbumin 6. She has been required fluids and pressors --now off. She receives ongoing treatment by ID for a complex infection with bacteremic multidrug resistant Proteus UTI and associated left sacral and buttock decubiti ulcers infected with methicillin-sensitive Staphylococcus aureus, Proteus, and probable anaerobes. ID recommends ongoing ertapenem IV for a minimum of 10 total days of therapy (through July 11). Today is Hospital Day 8 (Jul 07). On exam today, Mrs. Serna is fatigued and wants to sleep (both at morning and late afternoon rounds), denies pain, says she has been eating meals "ok." at bedside in afternoon, and talked with him about possible discharge plans at some length, but Dr. Love still was unclear on plans so discussed with ISABEL Bermudez. (See Plan above). Angelic oLve MD Jul 07, 2016 15:56
--- NOTE | 2016-07-07 18:00 | NUR ---
[facility] Signed
--- NOTE | 2016-07-07 19:25 | NUR ---
Uneventful shift Patient alert and oriented x3 throughout shift, reported no pain, palencia patent and draining yellow urine to gravity, all vital signs within normal limits. Patient still has very poor PO intake. Pleasant and cooperative.
[2016-07-07 19:50] VITALS: BP 119/85; PULSE 90; RESP 16; O2SAT 96
[2016-07-07 23:08] VITALS: BP 113/73; PULSE 81; RESP 16; O2SAT 95
[2016-07-08] MEDS: Heparin 5,000 Unit/mL Inj SUBQ SCH ×2 (00:43→09:17)
[2016-07-08 03:29] VITALS: BP 115/69; PULSE 80; RESP 16; O2SAT 96
--- NOTE | 2016-07-08 06:08 | NUR ---
Mentation/skin Turning patient every 2 hours from side to side. Forgetful and confused at times. Was incontinent of BM and smeared it on her bedding. Robbins draining clear urine. Room air sats in mid-upper 90's.
[2016-07-08 08:11] VITALS: BP 130/79; PULSE 90; RESP 16; O2SAT 96
[2016-07-08] MEDS: Polyethylene Glycol (PEG) 17 Gm Powder PO SCH (08:30)
[2016-07-08] MEDS: Ascorbic Acid 500 mg Tablet PO SCH ×2 (09:15→12:00)
[2016-07-08] MEDS: Dextrose 5% 0.45% NaCl 1,000 ML IV SCH (09:16)
[2016-07-08] MEDS: Ertapenem Inj 1,000 MG in 0.9% Sodium Chloride 50 ML IV SCH (09:16)
[2016-07-08] MEDS: Artificial Tears 15 mL Ophthalmic Solution BOTH_EYES SCH (09:16)
[2016-07-08 14:04] VITALS: BP 126/85; PULSE 82; RESP 16; O2SAT 97
--- NOTE | 2016-07-08 15:08 | NUR ---
Social Work Note: Discharge Data& Assessment: Per pt is medically stable and ready to discharge. After long conversation regarding pt's care needs and recommendations from the MD and PT, pt continues to decline accepting long-term facility [facility]. Pt is frustrated that neither [facility] or [facility] is able to accept pt and is not agreeable to her going to any other facility. [facility] confirmed they are unable to accept pt. Pt is agreeable to bring pt to [facility] for [place] antibiotics. RADHA confirmed appointment time for 3:00p.m. Tomorrow (Thursday07/09/2016), and Thursday (07/11/2016). Pt daughter is aware of the situation and entered pt room during discharge planning conversation with pt . Pt daughter advocated for pt to go to SNF, but pt explained to her that he is taking pt home. Pt daughter expressed frustrations with APS's and the hospitals inability to make pt go to SNF. Pt expressed understanding of pt need for turning every two hours and wound care needs. [facility] is unable to resume RN, OT, and PT until 07/10/2016. Pt notified. Pt has privately arranged a wheelchair van to pick pt between 4:00-4:15p.m. MD OBINNA and pt updated. RADHA left a voicemail for Tip Villatoro APS insurance application investigator ([phone]) who came to pt bedside today to meet her, updating him on pt discharge. No other discharge needs identified. Plan: Per pt is medically stable and will be discharging home via private pay wheelchair van with resume [facility] PT and RN, OT for 07/10/2016. Pt will come to [facility] to get her IV antibiotics daily for one hour until this Thursday07/11/2016 at 3:00p.m. Pt notified and agreeable. Pt plans to pay privately for a wheelchair van to get her to her IV antibiotics at [facility] the next three days. Pt daughter aware of discharge plan as she was at bedside today during discharge planning conversation. Pt and pt deny any other needs. No other discharge needs identified. CHEPE Pierre Addendum: 07/08/16 at 1543 by PEGGY FERNANDO Pt communicated to SW that they also plan to have [facility] resuming tomorrow. CHEPE Pierre
--- NOTE | 2016-07-08 16:43 | NUR ---
Discharge Pt discharged home today at 1645. Pt off floor via wheelchair with all of her belongings in the company of [employer], and [employer] staff to [facility] medical transport. Pt was sent with education materials on palencia care, skin ulcer prevention and care, and high protein diet. Pt's was given extra education on skin care for ulcer prevention and verbalized understanding. Follow up instructions were given. Pt's agreed to plan of bringing pt to [facility] for the following three days for IV antibiotic infusion. Pt was sent home with PICC saline locked and all three lumens flushing. Pt came with palencia and so it was drained and left in.
--- NOTE | 2016-07-08 16:56 | PCM.PALLBR ---
Palliative Care Recommendation Summary of palliative recommendations: Symptom management (Pain/other): pt, and daughter all reported on 07/04 that she is having some moderate pain with moving in bed to get wound care. home service director suggested this is more likely due to MK pain in back rather than pain related to decubiti. I am unclear at this time, what wound care plans are as outpatient. 1. I would recommend small doses of liquid morphine orally (5mg) about an hour prior to anticipated wound change in outpatient setting. 2. Continue scheduled po tylenol 325 qAC and HS as outpatient. Baseline Function: Patient says at [facility] she was able to walk with assistance, but she has not been out of bed at home or during this hospitalization. DPOA/Advanced Directives/POLST: 1. Code: Dr. Cruz reviewed CODE STATUS with patient on 07/02. Patient choose: no machines/allow natural /DO NOT RESUSCITATE/ DO NOT INTUBATE. This corresponds with previous discussion during office visit documented approximately 2 years ago. It is also the understanding of her daughter as to her wishes. Her feels this is only appropriate if two physicians deem some level of futility. He is concerned that patient does not understand the complexities of the question. Based on discussion 07/02 as well as discussion 2 years ago in the office, Dr. Cruz (who is her former PCP) believes patient does understand and that her wishes are DO NOT RESUSCITATE. 2. Advanced Directives: At 07/[address] Love, pt, and dtr Isabell, the Cornel produced a living will signed by patient and notarized in 1985 that also states she would not want prolongation of life when terminally ill and would not want artificial interventions such as intubation, ventilation or feeding tube. Dr. Love reiterated to Cornel, that providers will follow Norah's wishes and she has consistently said to allow a natural . Norah became upset that her was upset and asked that we stop talking about this subject. On meeting Norah alone on 07/04, Dr. Love asked her wishes and she really doesn't want complicated interventions with machines, but does not like to oppose her . Family/emotional support: complex with good intent. 07/03: Dr. Love met separately with daughter Isabell who has several concerns: 1. She feels that both of her parents having been showing signs of cognitive deficits, and poor judgement. 2. She states that her father is not strong enough to lift a bag of groceries , and likely not strong enough to turn his in bed or help her change her disposable underwear (she is incontinent of bladder and bowel). Patient has been using disposable underwear since 01/2016. 3. She believes that because of #1 and #2, her mother developed decubiti, and then they became infected. 4. She states that her parents are financially comfortable and could afford to hire private nursing help to at home, but her father refuses to do so. Dr. Love encouraged Isabell to report this information to APS, which had a case open on her mother in late March 2016, and then closed it. Isabell is also pursuing help from an heavy machinery assembler to see if there is any other way she can protect her mother from further neglect due to her parents' cognitive deficits. By observation at our 07/03 family meeting, Dr. Love does suspect that Cornel is having some cognitive deficits, he has difficulty understanding that his has underlying debility from her decreased appetite, weight loss and thus is more susceptible to skin breakdown when in bed. He doesn't understand, when counseled, that CPR after her heart stops would not bring her back to her current ability to think and interact with him. Patient Goals: 1. Patient wants to be told the truth about his/her illness, even if it is unpleasant. 2. Patient would like to be told prognosis when it can be predicted, to better guide treatment decisions. 3. Patient would choose quality of life over quantity of life. Specifically patient declines an option for feeding tube 4. Patient would request that comfort care take priority over cognitive/mental confusion. Disposition: 1. Disposition is for placement in the ECF. She will need nutritional support as well as wound management. I think she will benefit from rehabilitation and physical therapy.Her [facility] choice [facility], and 2nd choice [facility]. Discussed with CM on 07/07, and it is now possible that pt will discharge home with home health services on 07/08. [facility] and [facility] both unable to offer a bed. Please see CM 07/08/16 note for latest information. In my clinical opinion, there is a high risk for re-admission with this discharge plan as we know that has not been able to provide adequate care in the home (unintentional neglect) due to his poor health status and lack of cognitive insight re: his and her frail health. Problems: End of Life Preferences DNR/DNI no feeding tube Disposition When medically stable plan would be to discharge to ECF- for nutritional support wound management and the physical therapy Resuscitation Status Resuscitation Status: DNR/DNI:Do Not Resuscitate/Intubate POLST Updates/Changes Previous POLST?: No (patient has declined completing a POLSTin the past and present- she does not trust signing things) Artificially Admin Nutrition: No Artifical Nutrition by Tube Total time 35 minutes; >50% face to face with patient and/or family, providing counselling regarding plans and recommendations, and in care coordination with his/her medical teams. Palliative Brief Note Date of Service Jul 08, [address] Dr. Cruz, now on Palliative Care Team, was patient's PCP for many years- more recently followed by [facility] Patient Identification: Mrs. Norah Serna is a 85-year-old female hx of CVA 2015 with hospitalization at [facility] up to [facility] rehab for 2-3 months. Her was dissatisfied with her care and blames [facility] and [facility] for not recognizing SBO that was then evident on CT obtained due to acute onset N/ V. She required surgical intervention for SBO and he took her home for management. He has had home health assistance but switched companies due to his discontent with their care. Hospital Course: Patient admitted 06/30/16 for obtundation and sepsis, which seems now to be related to her indwelling palencia. She also was found on admission to have severe decubiti. She was evaluated by surgery regarding debridement of her decubitus ulcers, and they feel she does not need sharp debridement and can follow-up in outpatient wound clinic. She is extremely malnourished with albumin of 1.8 and prealbumin 6. She has been required fluids and pressors --now off. She receives ongoing treatment by ID for a complex infection with bacteremic multidrug resistant Proteus UTI and associated left sacral and buttock decubiti ulcers infected with methicillin-sensitive Staphylococcus aureus, Proteus, and probable anaerobes. ID recommends ongoing ertapenem IV for a minimum of 10 total days of therapy (through July 11). Today is Hospital Day 9 (Jul 08). On exam today, Mrs. Serna is fatigued and but awake, and her Cornel is at bedside. He is very frustrated that two SNFs that he likes are unable to take patient for a few days of IV antibiotics. He says he plans to take her home later today. (See Case Management 07/08 note for details). Angelic Love MD Jul 08, 2016 16:56
--- NOTE | 2016-07-08 18:24 | NUR ---
Wound Care Patient seen at bedside for wound care. 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 Wound right hip (stage 3) cleaned with saline redressed with adhesive foam dressing. Pt incontinent of stool again today at dressing change. Pt to have [facility] for [facility] at home and to continue antibiotics at [facility]. Will have pt follow up at the wound center, appt card provided to pt's .
--- NOTE | 2016-07-10 14:15 | NUR ---
Palliative care note- follow up phone call D/A: Case discussed with Eloisa Daniels DECALER Manager Assisted Living for [facility]. Both pt and spouse/caregiver with dementia and making decision contrary to plan of care offered by medical team. Medical team has been concerned about ability of either pt or spouse to make decisions regarding care that are consistent with reality of pt needs and conditions in the home/lack of access to 24/7 CG provided by a capable caregiver. Decision to reach out to pt dtr Isabell who remained very involved in care, expressing consistent concern with decision making of her parents. Note plan at dc. Orders for [facility] who were going to start care in the home on 07/10/16. [place] [facility] [place]; 07/09/16, 07/11/16 and 07/12/16 at 1500. Spouse to arrange for private pay wheelchair van to provide transport to above appts. Private duty caregiving from [facility] to begin providing care in the home. Phone call to MOC/short term unit at ext [phone]. Pt did attend for course of antibiotics on 07/09/16. Staff awaiting her arrival at this time. Phone call to pt dtr Isabell at [phone] to discuss progression of care since dc. Isabell notes that current plan is not one that she arranged or endorsed but was her fathers plan. This worker indicated that pt had attended her antibiotic treatment yesterday and staff were awaiting her arrival today. Stated that [facility] to begin today. Asked Isabell if she knew if [facility] (private duty CG) had started yet but Isabell was uncertain of this. Discussed APS and asked if Isabell if she knew if APS was moving forward with assessment/investigation of case. Isabell noted that APS worker was supposed to visit pt at the home and call Isabell to discuss. She has not received a call from APS worker and has left a message for APS worker. Provided Isabell with contact number for palliative care should pt/dtr have a need that palliative care might be able to assist them with in the future. Number provided is [phone]. Indicated that PC is open Mon-Fri, [id number]. P: No further need for PC services. Mary ROSALESSW, CCM
--- NOTE | 2016-07-13 08:11 | NUR ---
Social Work Note: Post Discharge Phone Call (Late Entry) SW received phone call from pt [facility] Cathy on 07/09/2015 inquiring about pt discharge plan and why pt did not discharge to SNF. SW explained that pt was accepted at a SNF in our community, but pt declined. SW provided [facility] with APS legal investigator information. CHEPE Pierre
== END 2016-07-08 16:45 | disposition home health service (06) | DRG 698 ==
LOC: SED 11:17 → PCC 16:44 → CCU 17:42 → PCC 07-01 08:46
PROVIDERS: ADMIT Hospitalist; ATTEND Hospitalist
PROC: 4A033R1 Measurement of Arterial Saturation, Peripheral, Percutaneous Approach (ICD-10-PCS; principal; 2016-06-30)
DX: T83.511A Infection and inflammatory reaction due to indwelling urethral catheter, initial encounter (principal); R65.21 Severe sepsis with septic shock; E43 Unspecified severe protein-calorie malnutrition; G93.40 Encephalopathy, unspecified; L89.154 Pressure ulcer of sacral region, stage 4; L89.213 Pressure ulcer of right hip, stage 3; N17.9 Acute kidney failure, unspecified; K56.41 Fecal impaction; I10 Essential (primary) hypertension; E78.5 Hyperlipidemia, unspecified; I69.398 Other sequelae of cerebral infarction; E83.42 Hypomagnesemia; Z85.038 Personal history of other malignant neoplasm of large intestine; Z16.24 Resistance to multiple antibiotics; B96.4 Proteus (mirabilis) (morganii) as the cause of diseases classified elsewhere; B95.61 Methicillin susceptible Staphylococcus aureus infection as the cause of diseases classified elsewhere; R19.7 Diarrhea, unspecified; E87.70 Fluid overload, unspecified

== ENCOUNTER 2016-08-27 12:58 | Observation (INO) | payer MEDICARE, OTHER ==
[~2016-08-27] VITALS: Ht 152.4 cm; Wt 40.5 kg
[~2016-08-27 12:58] MED LIST changes: -Aspirin-Expunged Drug, Do Not Renew! PO; +CALC625T83 PO; +CARB10DR2 OP; +DICL100G8 TOP; +INVANZ1I IV; -METO-272 PO; +METO50TA3 PO
[2016-08-27 13:12] VITALS: BP 134/87; PULSE 89; RESP 14; O2SAT 97
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
[2016-08-27 16:06] LABS: BASOPHILS % (AUTO) 0.6 % (0-3); EOSINOPHILS % (AUTO) 0.3 % (0-5); MONOCYTES % (AUTO) 6.9 % (4-12); Mean Corpuscular Hemoglobin 28.4 pg (27.0-35.0); Mean Corpuscular Volume 88.3 fL (81-100); NEUTROPHILS % (AUTO) 71.3 % (40-74); Platelet Count 428 bil/L (150-400)
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
[2016-08-27 16:28] LABS: ERYTHROCYTE SEDIMENTATION RATE 64 mm/hr (0-40)
[2016-08-27] MEDS ORDERED: Alum-Mag Hydrox-Simeth 30 mL Suspension PO PRN (16:55)
[2016-08-27] MEDS ORDERED: Polyethylene Glycol (PEG) 17 Gm Powder PO PRN (16:55)
[2016-08-27] MEDS ORDERED: Ondansetron 2 mg/mL 2 mL Inj IVPUSH PRN (16:55)
[2016-08-27 17:46] VITALS: BP 137/82; PULSE 87; RESP 16; O2SAT 98
[2016-08-27 18:41] VITALS: BP 146/85; PULSE 87; RESP 16; O2SAT 98
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
--- NOTE | 2016-08-27 19:29 | NUR ---
ADMIT TO [facility] Patient arrived to room 1024 on ER [facility]. Was transferred to hospital bed with slide board and 3 ppl assist. Shanell care provided and new brief placed on patient. Previous dressing on sacral ulcer was soiled, replaced with mepliex dressing. See skin assessment for more details. Patient positioned on her right side. Indwelling palencia catheter present and patent, draining marcos urine. Patient oriented to room and call light. Family present in room with patient.
[2016-08-27 20:15] VITALS: BP 134/88; PULSE 85; RESP 16; O2SAT 96
[2016-08-28 00:45] VITALS: BP 127/88; PULSE 65; RESP 18; O2SAT 94
[2016-08-28] MEDS: Artificial Tears 15 mL Ophthalmic Solution AFFECT_EYE SCH ×2 (00:56→20:51)
--- NOTE | 2016-08-28 03:26 | NUR ---
Turning Pt. has been q2 turns tonight and does well. Pt. has not had a BM since shift began. Will continue to monitor.
[2016-08-28 06:25] VITALS: BP 129/85; PULSE 87; RESP 16; O2SAT 97
--- NOTE | 2016-08-28 08:06 | NUR ---
Wound Care 85 yo female bedbound admitted to hospital late yesterday 08/27. Previously a hospice patient residing at home under the care of her . Seen today at bedside for evaluation of skin and wound issues. Pressure related skin issues as follows. Sacrum Stage 4 PU measures 5 cm x 2.8 cm x 0.5 cm with tunneling and undermining 3.5 cm from 12:00 to 9:00 o'clock. Draining minimally a serous fluid, no odor, base is granular, edges are rolled indicating chronicity. Cleaned and dressed with a mepilex sacral dressing. Left buttock stage 2 PU cluster measures 7 cm x 2 cm x 0.1 cm, no erythema, scant serous drainage, no odor. Cleaned and dressed with mepilex adhesive foam dressing. Left lateral ankle stage 2 PU 1 cm x 1 cm x 0.1 cm, clean, no drainage. Dressed with a mepilex adhesive foam dressing. Assessment Multiple pressure ulcers present on admission (POA), patient is on a low airloss bed and being turned and repositioned frequently, nursing can change dressings on a q 48 hr to prn basis for soiling, no surgical consult needed at this time. Prognosis for healing is very guarded. Wound to follow as needed.
[2016-08-28] MEDS ORDERED: Multivitamins w/Minerals 5 mL Liquid Supplement PO SCH (08:30)
[2016-08-28 08:42] VITALS: BP 143/94; PULSE 88; RESP 14
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
[2016-08-28 12:24] VITALS: BP 174/117; PULSE 93; RESP 16; O2SAT 97
--- NOTE | 2016-08-28 14:29 | NUR ---
IMM explained and signed. Copy given to patient. Original left in chart. Amanda VERDE
[2016-08-28] MEDS: HYDROcodone-APAP 5-325 mg Tablet PO PRN (14:46)
--- NOTE | 2016-08-28 15:42 | NUR ---
NUTRITION ASSESSMENT: ASSESS: Pt is an 85yo F admitted for failure to thrive. She has Sacral stage 4 Pressure injury, Left buttock stage 2 PU and Left lateral ankle stage 2 PU. Pt and are reporting that pt eats like a bird unless he sits there and encourages her to eat. Pt has lost ~14kg in 2 months (25%=significant) RDs have extensively reviewed high kcal/pro nutrition therapy numerous times with and pt, reinforced importance today. Pts prepares meals and smoothies for pt. Wt is down 14kg since last admit in June 2016. Pts concerned about thickened water on pts table. PMHX: CVA, colon, ca, SBO, HLD, osteoarthritis LABS: Reviewed. K 3.4, Super[employer] Anne[employer] .30, Ca 8.2, Alb 2.2 MEDS: Reviewed. MVI GI: BMx1 08/28. SKIN: Sacral stage 4 Pressure injury, stg 2 PO on L buttock, Stg 2 PU on L ankle. Visible muscle and subcutaneous fat loss in arms, shoulders, face, and neck. WC is following. CURRENT WTS: 40.5kg, BMI 17.4 kg/m2, admit wt 40kg. Wt 07/03/16: 54 kg. Wt Changes: 14 kg wt loss x2 months (25% = significant) DIET: General. Bites-25% EST. NEEDS: wound healing Kcals: 1400-1600kcal/day (35-40kcal/kg) Pro: 60-80g/day (1.5-2.0g/kg) NUTRITION DIAGNOSIS: 1.) Increased nutrient needs related to increased demand for wound healing as evidence by Sacral stage 4 Pressure injury and Left buttock stage 2 PU and stage 2pressure injuries on ankle. 2.) Severe malnutrition of unclear etiology as evidenced by 25% wt loss x2 months, and loss of LBM and subcutaneous fat and non-healing wounds 3.) Inadequate oral intake related to decreased ability to consume sufficient energy as evidenced by pt only eating 25% of meals and pt being a very picky eater. NUTRITION INTERVENTION: 1.) Reviewed nutrition therapy for wt gain 2.) Discussed importance of protein intake for wound healing 3.) Encouraged 5-6 small meals per day w/ high calorie/protein foods 4.) Will send Ancelmo BID to promote wound healing 5.) Will send strawberry Ensure TID to promote calorie/protein intake MONITOR / EVAL: PO, wounds, wt, labs, GI, POC. Will continue to monitor per high nutrition risk guidelines
[2016-08-28 16:12] VITALS: BP 124/69; PULSE 70; RESP 16; O2SAT 98
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
--- NOTE | 2016-08-28 19:12 | NUR ---
ACTIVITY Patient is on bedrest. Turned and repositioned every 2 hours. Dressings were changed by wound care earlier in shift. Robbins catheter patent and draining. Incontinent of bowel. C/o pain in bilateral knees x1 during shift. Medicated with 1 tab norco with good effects. continue to monitor on hourly rounding.
[2016-08-28 20:17] VITALS: BP 135/92; PULSE 91; RESP 16; O2SAT 97
[2016-08-29 05:35] VITALS: BP 124/77; PULSE 83; RESP 16; O2SAT 96
--- NOTE | 2016-08-29 06:41 | NUR ---
Activity Pt. turned q2h. Pt. had moderate BM in beginning of shift. Meiplex on all areas are c/d/i. Will continue to monitor.
[2016-08-29 08:07] VITALS: BP 126/85; PULSE 89; O2SAT 96
[2016-08-29] MEDS: HYDROcodone-APAP 5-325 mg Tablet PO PRN (09:19)
--- NOTE | 2016-08-29 10:00 | NUR ---
Social work note - Continued D/C planning DIRECTOR OF REHABILITATIVE SERVICES reached out to APS worker Tip Nunez [phone] - he is not in the office today. DIRECTOR OF REHABILITATIVE SERVICES called and left a message for Tip's machine setter supervisor - Kathie Galeana [phone] asking for help with planning and disposition. DIRECTOR OF REHABILITATIVE SERVICES will continue to follow. ERICKA Mcdaniel
--- NOTE | 2016-08-29 10:40 | NUR ---
Case management- ANTHONY explained and signed. Amanda VERDE/RN
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
[2016-08-29] MEDS: Multivitamins w/Minerals 5 mL Liquid Supplement PO SCH (13:26)
[2016-08-29 14:49] VITALS: BP 127/83; PULSE 82; RESP 18; O2SAT 97
--- NOTE | 2016-08-29 16:37 | NUR ---
Social Work: Continued Discharge Planning Ginger Farmer spoke with Kathie Galeana [phone] at APS supervisor inspection and testing who stated that she was not sure if the assigned APS worker Tip Palomares [phone] has had a chance to visit the patient and that he will not be back until Thursday and he may be able to visit the patient and conduct a APS investigation. SW will notify APS if the patient discharges before Thursday. Ginger Farmer Spoke with patients spouse and daughter and notified them that [facility] not able to accept the patient due to the stage of her wound. They voiced understanding. Ginger Farmer notified patients spouse that [facility] was able to assist the patient, but that he would have to pay privately because the patient is currently in OBS status. Patients spouse stated that he wanted to speak with the physician to see about having the patients status change before he decided if he wanted to pay privately for [facility]. Patients spouse requested that the social science research assistant come to the room on 08/30/16 between 10 and 11 and he will notify social scientist of his decision. SW will follow-up with patients spouse on 08/30/16. Plan: SW will meet with patient and patients spouse on 08/30/16. SW will continue to follow. Fara Duval LMSW, SHIVANI Addendum: 08/29/16 at 1651 by FARA DUVAL Patient's daughter is Isabell and can be reached at [phone].
--- NOTE | 2016-08-29 18:16 | NUR ---
ACTIVITY Hydrocodone/APAP 1 tab PO has been adequate for complaints of pain. Tolerating liquids PO and her diet well. Poor appetite. Denies nausea. No emesis noted. Denies SOB. Mepilex foam in place. Turned and repositioned Q 2 hrs. Addendum: 08/29/16 at 1848 by EDIL BENAVIDES RN UO Patient's UO-200 ml. Patient had poor PO intake this morning. 300 ml PO intake noted this morning. Encouraged patient to increase fluid intake. Patient was able to drink more this afternoon. Patient was able to take in 580 ml PO this afternoon. Total PO intake of 780 this shift. Endorsed to incoming RN to monitor UO.
[2016-08-29 19:32] VITALS: BP 108/71; PULSE 83; RESP 18; O2SAT 95
[2016-08-29] MEDS: Artificial Tears 15 mL Ophthalmic Solution AFFECT_EYE SCH (21:48)
--- NOTE | 2016-08-30 02:57 | NUR ---
Pain Patient denied pain on initial assessment. Patient quite passive. VSS. Call light within reach. Report given to Valente Zamarripa RN.
[2016-08-30 05:36] VITALS: BP 145/87; PULSE 55; RESP 18; O2SAT 98
--- NOTE | 2016-08-30 07:57 | NUR ---
Q2 turns Patient states she is in no pain. Patient's position was changed every 2 hours. Patient's Robbins patent and draining. Patient denies N/V.
[2016-08-30] MEDS: Multivitamins w/Minerals 5 mL Liquid Supplement PO SCH (10:16)
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
[2016-08-30 12:14] VITALS: BP 131/95; PULSE 116; RESP 18; O2SAT 96
--- NOTE | 2016-08-30 13:15 | PCM.DIMED ---
Discharge Instructions Date of Service Aug 30, 2016 Dates of Hospitalization Aug 27, 2016 at 17:20 Discharge Diagnosis Discharge Diagnosis #failure to thrive #chronic sacral decubitus ulcer, satge4, required surgery #Left deanne s/p CVA. #Cachexia/protein caloric malnutrition #Hypertension #History of colon cancer, s/p colon resection Medication Instructions pain control with tylenol, dicofenac gel Diet Other Activity Other Patient Instructions You were hospitalized with your chronic problems, brought by your , treated medically for your pain, decided that you need higher level of care, discharged to [facility]. Please note that patient cannot be benefited from another hospitalization as we discussed. Instruction for SNF Please note that patient has chronic sacral ulcers, needs surgical intervention , However, given her poor baseline condition, nutritional status, It was recommended that patient cannot benefit from surgery. Please continue wound care as needed per Wound care service. Continue to work on nutritional status, agreed that patient is potentially hospice candidate, willing to proceed if patient's condition deteriorate. Please continue to have further conversation about Goals of care and code status, Patient was previously DNR/DNI , revoked by to Full Code. Assesment from wound Care 85 yo female bedbound admitted to hospital late yesterday 08/27. Previously a hospice patient residing at home under the care of her . Seen today at bedside for evaluation of skin and wound issues. Pressure related skin issues as follows. Sacrum Stage 4 PU measures 5 cm x 2.8 cm x 0.5 cm with tunneling and undermining 3.5 cm from 12:00 to 9:00 o'clock. Draining minimally a serous fluid, no odor, base is granular, edges are rolled indicating chronicity. Cleaned and dressed with a mepilex sacral dressing. Left buttock stage 2 PU cluster measures 7 cm x 2 cm x 0.1 cm, no erythema, scant serous drainage, no odor. Cleaned and dressed with mepilex adhesive foam dressing. Left lateral ankle stage 2 PU 1 cm x 1 cm x 0.1 cm, clean, no drainage. Dressed with a mepilex adhesive foam dressing. Assessment Multiple pressure ulcers present on admission (POA), patient is on a low airloss bed and being turned and repositioned frequently, nursing can change dressings on a q 48 hr to prn basis for soiling, no surgical consult needed at this time. Prognosis for healing is very guarded. Wound to follow as needed. NUTRITION ASSESSMENT: ASSESS: Pt is an 85yo F admitted for failure to thrive. She has Sacral stage 4 Pressure injury, Left buttock stage 2 PU and Left lateral ankle stage 2 PU. Pt and are reporting that pt eats like a bird unless he sits there and encourages her to eat. Pt has lost ~14kg in 2 months (25%=significant) RDs have extensively reviewed high kcal/pro nutrition therapy numerous times with and pt, reinforced importance today. Pts prepares meals and smoothies for pt. Wt is down 14kg since last admit in June 2016. Pts concerned about thickened water on pts table. PMHX: CVA, colon, ca, SBO, HLD, osteoarthritis LABS: Reviewed. K 3.4, Roustabout Supervisor .30, Ca 8.2, Alb 2.2 MEDS: Reviewed. MVI GI: BMx1 /. SKIN: Sacral stage 4 Pressure injury, stg 2 PO on L buttock, Stg 2 PU on L ankle. Visible muscle and subcutaneous fat loss in arms, shoulders, face, and neck. WC is following. CURRENT WTS: 40.5kg, BMI 17.4 kg/m2, admit wt 40kg. Wt 07/03/16: 54 kg. Wt Changes : 14 kg wt loss x2 months (25% = significant) DIET: General. Bites-25% EST. NEEDS: wound healing Kcals: 1400-1600kcal/day (35-40kcal/kg) Pro: 60-80g/day (1.5-2.0g/kg) NUTRITION DIAGNOSIS: 1.) Increased nutrient needs related to increased demand for wound healing as evidence by Sacral stage 4 Pressure injury and Left buttock stage 2 PU and stage 2pressure injuries on ankle. 2.) Severe malnutrition of unclear etiology as evidenced by 25% wt loss x2 months, and loss of LBM and subcutaneous fat and non-healing wounds 3.) Inadequate oral intake related to decreased ability to consume sufficient energy as evidenced by pt only eating 25% of meals and pt being a very picky eater. NUTRITION INTERVENTION: 1.) Reviewed nutrition therapy for wt gain 2.) Discussed importance of protein intake for wound healing 3.) Encouraged 5-6 small meals per day w/ high calorie/protein foods 4.) Will send Ancelmo BID to promote wound healing 5.) Will send strawberry Ensure TID to promote calorie/protein intake MONITOR / EVAL: PO, wounds, wt, labs, GI, POC. Will continue to monitor per high nutrition risk guidelines Follow-up plan Please follow up with doctor in SNF Follow-up with PCP in: 2 weeks Alejandro Bryant MD Aug 30, 2016 13:15
--- NOTE | 2016-08-30 13:54 | NUR ---
discharge Pt left via [facility] in stable condition with all belongings at 1345, at bedside, Pt transferred to Wheelchair via 2 person lift, tucked in with pillows and warm blankets, Report called over to Caity YEBOAH at [facility].
--- NOTE | 2016-08-30 14:47 | NUR ---
Direct Sales Representative: Discharge Patient [facility] Patient's spouse was at bedside and in agreement with discharge. SW offered to set up patient for BLS transfer due to patient's stage 4 sacral, but patient's spouse declined. Taylor Duval, NANETTE, ACM
--- NOTE | 2016-08-30 15:34 | NUR ---
Social Work: Discharge Director Of Home Economics call Tip Romeroyonathan, APS worker [phone], and left a message notifying him that patient discharged to [facility]. Taylor Duval LMSW, ACM
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
== END 2016-08-30 13:41 ==
LOC: SED 12:58 → EDBD 12:58 → EDSEX 12:58 → OSC 17:20 → OBSVTOIN 17:20 → INTOOBSV 17:20 → OSC 17:29 → SED 17:55
PROVIDERS: ADMIT Hospitalist; ATTEND Hospitalist
DX: R62.7 Adult failure to thrive (principal); L89.154 Pressure ulcer of sacral region, stage 4; L89.322 Pressure ulcer of left buttock, stage 2; L89.522 Pressure ulcer of left ankle, stage 2; I69.354 Hemiplegia and hemiparesis following cerebral infarction affecting left non-dominant side; E46 Unspecified protein-calorie malnutrition; R64 Cachexia; I10 Essential (primary) hypertension; E78.5 Hyperlipidemia, unspecified; M19.90 Unspecified osteoarthritis, unspecified site; Z85.038 Personal history of other malignant neoplasm of large intestine; Z66 Do not resuscitate
CPT/HCPCS: 36415; 80053; 82040; 84134; 85025; 85651; 90791; 97602; 99285; G0378

== ENCOUNTER 2016-10-06 08:40 | Inpatient (IN) | payer MEDICARE, OTHER ==
[2016-10-06] VITALS (9 sets, daily range): BP systolic 112–146; BP diastolic 70–98; PULSE 74–118; RESP 16–25; O2SAT 95–100
[~2016-10-06 08:40] MED LIST changes: -ATOR20TA PO; -CALC625T83 PO; -INVANZ1I IV; -METO50TA3 PO
--- NOTE | 2016-10-06 08:43 | ED.REPORT ---
HPI-Altered Mental Status Date of Service Oct 06, 2016 ED Provider: Dr. Milad Crenshaw The patient is a 86 year old female w/ a hx of CVA w/ left sided weakness and dementia who presents to the ED via EMS from [facility] after being unresponsive for 10 minutes. She denies cough and fever. She says she is just tired and wants to sleep. She is not sure why she is at the ED. Pt is a very poor historian. Nursing Notes Stated Complaint: CHANGE IN MENTAL STATUS Nursing Notes Reviewed: Yes Allergies: Coded Allergies: No Known Allergies (Verified , 08/27/16) Scheduled Acetaminophen (Acetaminophen) 325 Mg Tablet 650 MG PO QID Pt on hospice Carboxymethylcellulos/Glycerin (Refresh Optive Gel Eye Drops) 1 %-0.9 % Drops.gel 1 GTT OP DAILY Scheduled PRN Diclofenac Gel (Voltaren Gel) 100 Gm Tube 1 APPLIC TOP QID PRN PRN For Pain General Time Seen by MD: 08:42 Chief Complaint Confused Hx Obtained From: EMS Unable to Obtain Hx: Patient condition, Mental status Arrived By: Ambulance Sudden in Onset?: No Past Medical History Past Medical History Notes: Hospice care Past Medical History 1. 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 2. Colon cancer status post colon resection (performed by Dr. Carina Hu). 3. SBO status post small bowel repair. 4. Hyperlipidemia. 5. Osteoarthritis of bilateral knees. Past Surgical History 1. Colon resection. 2. Small bowel repair. 3. Arm fracture Smoking History Never Smoker Social History Alcohol Use: Denies alcohol use Other Social History: Ambulatory Status Wheelchair Review of Systems Unable to Obtain ROS Patient condition Physical Exam Initial Vital Signs Vital Signs (First) Date Time Temp Pulse Resp B/P Pulse Ox O2 Delivery O2 Flow Rate FiO2 10/06/16 08:46 35.8 96 16 144/98 95 Room Air Initial VS: Reviewed ENT: Mucous membranes moist, Conjunctiva normal, No scleral icterus Abdomen / GI: Soft, Non-tender, No guarding, No rebound, No distention Extremities: Vascular intact, Neuro intact, No swelling, No tenderness Skin: Warm, Dry, No cyanosis Psychiatric: Mood/affect normal, Behavior normal, Normal thought content General/Constitutional: Awake Alertness: Positive: Confused Distress / Hydration: Positive: Dehydration mild, Distress mild, Distress moderate Appearance / Presentation: Positive: Frail thin Head / Eyes: Atraumatic, Normocephalic, PERRL, EOMI Neck: Atraumatic, Supple, No meningismus Respiratory / Chest: Atraumatic, Breath sounds NL, Breath sounds = bilat Cardiovascular: Regular rhythm, Heart sounds NL Heart Rate / Rhythm: Positive: Tachycardia Neurologic: Oriented X3, Speech NL, No motor deficits Color / Condition: Positive: Lesion present... Rash / Lesion Notes: decubitus on right hip and right sacrum that are healing and don't appear infected Rash / Lesion Location: Positive: Buttocks, Leg R Interpretation & Diagnostics Lab Results Interpretation Result Diagram: 10/06/16 1123 10/06/16 1123 Test 10/06/16 11:23 10/06/16 13:50 10/06/16 14:10 White Blood Count 15.3th/mm3 (3.8-10.1) Red Blood Count 4.43mil/mm3 (3.90-5.20) Hemoglobin 13.8g/dL (12.0-15.6) Hematocrit 40.9% (35.0-46.0) Mean Corpuscular Volume 92.3fL (81-100) Mean Corpuscular Hemoglobin 31.2pg (27.0-35.0) Mean Corpuscular Hemoglobin Concent 33.7% (32.0-37.0) Red Cell Distribution Width 20.0% (12.3-15.4) Platelet Count 396bil/L (150-400) Neutrophils (%) (Auto) 88.9% (40-74) Lymphocytes (%) (Auto) 5.3% (14-46) Monocytes (%) (Auto) 5.2% (4-12) Eosinophils (%) (Auto) 0.1% (0-5) Basophils (%) (Auto) 0.2% (0-3) D-Dimer 1.34mg/L FEU (<0.50) Sodium Level 143mEq/L (134-144) Potassium Level 4.0mEq/L (3.5-5.2) Chloride Level 105mEq/L (97-108) Carbon Dioxide Level 22mmol/L (18-29) Blood Urea Nitrogen 21mg/dL (8-27) Creatinine 0.56mg/dL (0.57-1.00) Estimat Glomerular Filtration Rate 148mL/min (>59) Glucose Level 124mg/dL (60-99) Calcium Level 9.4mg/dL (8.5-10.1) Magnesium Level 1.9mg/dL (1.6-2.6) Total Bilirubin 0.6mg/dL (0.0-1.2) Aspartate Amino Transf (AST/SGOT) 32U/L (0-50) Alanine Aminotransferase (ALT/SGPT) 13U/L (0-32) Alkaline Phosphatase 139U/L (25-165) Troponin T 0.034ug/L (0.0-0.011) Total Protein 7.1g/dL (6.4-8.4) Albumin 3.1g/dL (3.4-5.0) Urine Color Yellow (YELLOW) Urine Appearance Slightly cloudy Urine pH 7.5 (5.0-8.0) Urine Specific [place] 1.010 (1.003-1.035) Urine Protein 30mg/dL (NEG,TRACE) Urine Glucose (UA) Negativemg/dL (NEGATIVE) Urine Ketones Negativemg/dL (NEGATIVE) Urine Occult Blood Small (NEGATIVE) Urine Nitrite Negative (NEGATIVE) Urine Bilirubin Negative (NEGATIVE) Urine Urobilinogen Normalmg/dL (NORMAL) Urine Leukocyte Esterase Moderate (NEGATIVE) Urine RBC 0-2/hpf (0-2) Urine WBC 11-50/hpf (0-5) Urine Epithelial Cells Occasional/hpf (NONE-MOD) Urine Crystals Amorphous urates (NONE Urine Bacteria Moderate/hpf (NONE-FEW) Urine Hyaline Casts None/lpf (NONE) Urine Granular Casts None seen (NONE SEEN) Urine Waxy Casts None seen (NONE SEEN) Urine Red Blood Cell Casts None seen (NONE SEEN) Urine White Blood Cell Casts None seen (NONE SEEN) Urine Mucus None seen (None Seen) Urine Trichomonas None seen (NONE SEEN) Urine Yeast None (NONE SEEN) Urinalysis Comment None Urine Culture Reflexed Indicated Lactic Acid Level 2.7mmol/L (0.4-2.0) ECG Interpretation ECG Interpretation: probable LVH Time: 10:14 Interpreted by: ED physician Rhythm / Conduction: Tachycardia (109) X-Ray Chest Interpretation Chest Xray Interpretation: IMPRESSION: Left upper lobe and retrocardiac/left basilar opacities as above. As noted, the left upper lobe opacity has not significantly changed compared to 07/03/16. This could represent interval scarring or incompletely treated infection. However, other etiologies such as mass lesion cannot be definitively excluded. Left basilar opacity is likely pharmaceutical service representative of improving, although incompletely resolved infection. Recommend continued interval followup to document resolution. Dictated by: Elisabeth Grewal M.D. on 10/06/2016 at 10:46 Approved by: Elisabeth Grewal M.D. on 10/06/2016 at 10:48 View: Portable Interpretation / Wet Read by: Interpret - Radiologist CT Chest Interpretation IMPRESSION: 1. Ascending thoracic aortic aneurysmal dilation without dissection. 2. Enlargement of the pulmonary artery suggestive of pulmonary artery hypertension. 3. Cardiomegaly. Dictated by: Elisabeth Grewal M.D. on 10/06/2016 at 13:14 Approved by: Elisabeth Grewal M.D. on 10/06/2016 at 13:25 Study type: Chest CT no contrast Interpretation / Wet Read by: Interpret - Radiologist Re-Eval/Medical Decision Med Decision/Clinical Course Period of unresponsiveness and has returned back to normal baseline, I do not suspect acute stroke or intracranial hemorrhage and I do not see any indication for head CT. Patient does have Urosepsis and dehydration. Will admit. Vital signs have been stable since IV fluids. Rocephin 2 g IV given Consultation : Referral / Consult Name: Brenton Munoz MD Consulted With: Hospitalist Call Returned at: 15:40 Automat Car Attendant: Will see patient, Accepts admit Counseled Regarding: Diagnosis, Lab results, Need for admission Patient Discharge & Departure Impression: Primary Impression: UTI (urinary tract infection) Additional Impression: Sepsis Disposition: ADMITTED TO HOSPITAL Discharge Condition All VS Reviewed: Yes Condition: Stable Referrals: Cesar Rush MD (PCP) Beatrice Attestation Portion of this note were transcribed by Mandie Post. I, Dr. Crenshaw, personally performed the history, physical exam, and medical decision-making: I reviewed and confirmed the accuracy for the information in the transcribed note. Signed by: beatrice Hernandez, 10/06/16 1200 copies to: Cesar Rush MD, Timothy S DO Oct 06, 2016 08:43 Mandie Post Oct 06, 2016 10:03
[2016-10-06] MEDS ORDERED: 0.9% Sodium Chloride 1,000 ML IV ONE (10:03)
--- NOTE | 2016-10-06 10:49 | DRSVH ---
PROCEDURE: X-RAY CHEST ONE VIEW, PORTABLE ([id number]) INDICATIONS: syncope TECHNIQUE: One view of the chest was acquired. COMPARISON: [facility], CR, XR CHEST 1VW (PORTABLE), 05/25/2016, 12:41. [facility], CR, XR CHEST 1VW (PORTABLE), 07/03/2016, 5:02. FINDINGS: Surgical changes and devices: None. Lungs and pleura: Patient is rotated, limiting evaluation. There is persistent appearance of patchy l eft upper lobe opacity which has not significantly changed compared to prior exam. There is persisten t, although less prominent appearance of retrocardiac/left basilar opacity. Mediastinum: Mediastinal contours appear normal. Heart size is normal. Bones and chest wall: No suspicious bony lesions. Overlying soft tissues appear unremarkable. IMPRESSION: Left upper lobe and retrocardiac/left basilar opacities as above. As noted, the left uppe r lobe opacity has not significantly changed compared to 07/03/16. This could represent interval scarri ng or incompletely treated infection. However, other etiologies such as mass lesion cannot be definit ively excluded. Left basilar opacity is likely order entry representative of improving, although incompletely res olved infection. Recommend continued interval followup to document resolution. Dictated by: Elisabeth Grewal M.D. on 10/06/2016 at 10:46 Approved by: Elisabeth Grewal M.D. on 10/06/2016 at 10:48
[2016-10-06 11:36] LABS: BASOPHILS % (AUTO) 0.2 % (0-3); EOSINOPHILS % (AUTO) 0.1 % (0-5); MONOCYTES % (AUTO) 5.2 % (4-12); Mean Corpuscular Hemoglobin 31.2 pg (27.0-35.0); Mean Corpuscular Volume 92.3 fL (81-100); NEUTROPHILS % (AUTO) 88.9 % (40-74); Platelet Count 396 bil/L (150-400)
[2016-10-06 11:57] LABS: TROPONIN T 0.034 ug/L (0.0-0.011)
[2016-10-06 12:08] LABS: Magnesium 1.9 mg/dL (1.6-2.6)
--- NOTE | 2016-10-06 13:26 | DRSVH ---
PROCEDURE: CT ANG CHEST/ABD W/WO CONTRAST ([id number]) INDICATIONS: syncope, elevated ddimer TECHNIQUE: Precontrast 5 mm thick sections acquired from the lung apices to the iliac crests. After the adminis tration of intravenous contrast, 3 mm thick sections again acquired from the lung apices to the iliac crests. 3-dimensional maximum intensity projection (MIP) oblique sagittal and coronal reformats wer e then acquired, and/or 3-dimensional volume rendering reformats. For radiation dose reduction, the following was used: automated exposure control. COMPARISON: None. FINDINGS: Image quality: Excellent. AORTA: No dissection. There is aneurysmal dilation of the ascending of the thoracic aorta, measuring 45 mm. CHEST: Lungs and pleura: There are dependent changes in the bases bilaterally. No pleural effusions or pne umothorax. Central and peripheral airways are patent and normal in caliber. Mediastinum: Heart size is mildy enlarged. No pericardial effusion. No mediastinal or hilar adenop athy by size criteria. Central pulmonary arteries demonstrate enlargement, measuring 33 mm in transv erse diameter. Esophagus is normal in caliber. No hiatal hernias. Bones and chest wall: No axillary adenopathy by size criteria. Thyroid gland is unremarkable. No s uspicious bony lesions. No vertebral body compression fractures. ABDOMEN: Vasculature: Celiac trunk and mesenteric arteries are patent. Renal arteries are also patent. Solid organs: Liver and spleen are normal in size. Gallbladder is unremarkable. Biliary system is non dilated. Pancreas enhances normally. No adrenal nodules. Both kidneys are normal in size and e nhancement, without hydronephrosis. Peritoneum and bowel: No free fluid or air. Bowel loops are normal in caliber and wall thickness. Nodes and vessels: No retroperitoneal or mesenteric adenopathy by size criteria. Inferior vena cava is normal in morphology. Bones: No suspicious bony lesions. No vertebral body compression fractures. Miscellaneous: No ventral hernias. IMPRESSION: 1. Ascending thoracic aortic aneurysmal dilation without dissection. 2. Enlargement of the pulmonary artery suggestive of pulmonary artery hypertension. 3. Cardiomegaly. Dictated by: Elisabeth Grewal M.D. on 10/06/2016 at 13:14 Approved by: Elisabeth Grewal M.D. on 10/06/2016 at 13:25
[2016-10-06 14:10] LABS: APPEARANCE,URINE SLIGHTLY CLOUDY (CLEAR,HAZY); COLOR,URINE YELLOW (YELLOW); OCCULT BLOOD,URINE SMALL (NEGATIVE); PH,URINE 7.5 (5.0-8.0); UROBILINOGEN,URINE NORMAL (NORMAL)
[2016-10-06] MEDS ORDERED: cefTRIAXone Inj 2,000 MG in Dextrose 5% Minibag Plus 50 ML IV ONE (14:30)
[2016-10-06] MEDS ORDERED: Ondansetron 2 mg/mL 2 mL Inj IVPUSH PRN (15:50)
[2016-10-06] MEDS ORDERED: Alum-Mag Hydrox-Simeth 30 mL Suspension PO PRN (15:50)
[2016-10-06] MEDS ORDERED: Polyethylene Glycol (PEG) 17 Gm Powder PO PRN (15:50)
[2016-10-06] MEDS ORDERED: DICL100G30 TOP (16:05)
[2016-10-06] MEDS ORDERED: MAGN400O4 PO (16:05)
[2016-10-06] MEDS ORDERED: BISA10SU61 RC (16:05)
[2016-10-06] MEDS ORDERED: med plus 2.0 PO (16:05)
[2016-10-06] MEDS ORDERED: CARB15DR74 BOTH_EYES (16:05)
[2016-10-06] MEDS ORDERED: ACET325T51 PO (16:05)
--- NOTE | 2016-10-06 17:04 | NUR ---
Admission [place] [facility] [id number] A/Ox3, Montserratian is second language, pt is [place], does speak [place]ian with heavy accent. Very frail appearing female, transferred from [facility] by staff. Pt unable to ambulate. Has indwelling palencia catheter. IV saline locked.
--- NOTE | 2016-10-06 18:17 | NUR ---
Assessment/admission Pt refuses to move, sts "will not answer any more questions until I can have some water". This RN informed pt is NPO/ MD order as pt is aspiration risk. Pt sts "the doctor told my daughter to give me as much water as I can drink. I will have my daughter bring me water". This RN attempted to try and complete the admission assessment. Pt refused to answer. paged. awaiting call back.
[2016-10-06] MEDS ORDERED: 0.9% Sodium Chloride 1,000 ML IV SCH (20:40)
--- NOTE | 2016-10-06 22:02 | PCM.HPMED ---
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 She then fractured her left hip approximate 4 years ago and did not have it repaired. however, patient was not totally bedbound until approximately 1 year ago after she had a CVA with left-sided weakness. Patient has had multiple admissions over the last year including one for severe decubitus ulcers which have been infected with multiple organisms. Patient was cared for by Dr. Calderón and at one point received 2 weeks of IV ertapenem. Patient is also suffering from dementia. As her could no longer care for her patient was transferred to [facility] and her decubitus ulcers have been improving. However, today [facility] staff members found her unresponsive for approximately 10 minutes. Patient was transferred to [facility] emergency room where she was evaluated by Dr. Milad Barber. Patient was found to have sepsis from a urinary tract infection and it was believed that this was responsible for her acute encephalopathy. Patient was therefore admitted to the hospital service for further evaluation and treatment. Review of Systems: General: The patient is lying on her right side in no apparent distress. She has no new complaints and is unaware of what happened today. She is pleasantly demented. HEENT: Patient has no headache, patient has no diplopia, patient has no changes in vision. She has had bilateral cataract surgery. Patient has no problems with their ears, nose or throat. Patient has dentures. Patient has no pharyngitis or history of thrush. Neck: Patient has no stiffness in the neck. Patient has no lymphadenopathy. Patient has no other problems with their neck. Pulmonary: Patient has no shortness of breath, no cough, no expectoration of sputum. Patient has no pleurisy. Patient has no chest pain. Patient has no history of asthma or COPD. Cardiovascular: Patient has no chest pain. Patient has no history of heart murmur. Patient has no palpitations. Patient has no history of myocardial infarction. Patient has no history of coronary artery disease. Gastrointestinal: Patient has no history of hepatitis A, B or C. Patient has no history of peptic ulcer disease. Patient has no history of gastroesophageal reflux disease. Patient has no history of nausea, vomiting, or diarrhea. Patient has no history of hematemesis, hematochezia, or melena. Patient has no history of colitis. Renal: Patient has no history of kidney disease. No history of kidney stones. Genitourinary: Patient has no history of dysuria or frequency. The patient does however suffer from incontinence. Patient has no previous history of genitourinary problems, other than previous urinary tract infections. 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 Patient then had a fracture of her left hip which was not operated on. Patient is now completely bedbound. Neurologic: Patient has a history of a right CVA with left-sided paresis, mostly of her lower extremity.. Psychiatric: Patient has no history of psychiatric problems. The patient is pleasantly demented. The remainder of the entire review of systems was reviewed with patient and is as mentioned above otherwise negative. Allergies Coded Allergies: No Known Allergies (Verified , 10/06/16) Home Medications Scheduled Acetaminophen (Acetaminophen) 325 Mg Tablet 650 MG PO QID Carboxymethylcellulos/Glycerin (Refresh Optive Gel Eye Drops) 1 %-0.9 % Drops.gel 1 GTT OP DAILY Scheduled PRN Diclofenac Gel (Voltaren Gel) 100 Gm Tube 1 APPLIC TOP QID PRN PRN For Pain PMH 1. 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 2. Colon cancer status post colon resection (performed by Dr. Carina Hu). 3. SBO status post small bowel repair. 4. Hyperlipidemia. 5. Osteoarthritis of bilateral knees and hips. Surgical History 1. Colon resection. 2. Small bowel repair. 3. Arm fracture Family History The patient's father of her brain aneurysm. The patient does not know what her mother from. Patient had 2 sisters one who committed suicide by jumping in the water. And one sister committed suicide by taking too many sleeping pills. The patient had one brother who just before he reached 100 years old. The patient had another brother who of unknown causes. Social History Occupation: the patient is a retired Hx Alcohol Use: No Hx Substance Use: No Hx Tobacco Use: No Smoking Status: Never Smoker Living Arrangement: Senior Care Facility (The patient lives at [facility]) Additional Information The patient was born in [facility] where she attended and graduated high school. She met her who was in the and they . They moved to [place] in the . The patient is 2 para 2. The patient was a [id number] mother. Her moved their family to [place] in 1970. She enjoyed watching her children participate in sports particularly her daughter Isabell who was an avid video player mechanic. He was living with her till he could not care for her anymore and she recently moved to the [facility]. She is pleasantly demented. Exam Vital Signs Vital Sign - Last Date Time Temp Pulse Resp B/P Pulse Ox O2 Delivery O2 Flow Rate FiO2 10/06/16 17:34 36.7 91 16 112/81 95 Room Air Exam General: The patient is lying on her right side in no apparent distress. She is pleasantly confused. HEENT: Head is atraumatic and normocephalic. Eyes: Pupils are equally round and reactive to light and accommodation. Extraocular muscles are intact. Sclera are white, anicteric. Subconjunctival mucosa is pink. Ears and nose are unremarkable. Oropharynx: There is no mucosal lesions, there is no thrush, there is no pharyngitis. Patient is wearing dentures. Neck: Is supple, there are no nodes, or masses or tenderness. Chest: Is clear to auscultation and percussion. There are no rales, rhonchi, wheezes or rubs. Heart: Rate, rhythm is regular. There is no murmur, rub or gallop. Abdomen: Good bowel sounds are present. Abdomen is soft, nontender, no organomegaly or masses were appreciated. Extremities: Are symmetrical and well perfused. The decubitus ulcers in the malleolar area appear to be healing well the decubitus ulcers on her sacrum appear to be healing well. There is no edema, there is no cellulitis, no rash. Neurologic: Cranial nerves II through XII are intact. There is slight weakness of the left upper extremity and paresis of the left lower extremity. Psychiatric: Patients mood is calm and she shows no sign of agitation. Genital: Deferred Rectal: Deferred Lab and Diagnostics Result Diagram: 10/06/16 1123 10/06/16 1123 Microbiology Urine cultures are pending. Blood cultures are pending X-Rays, CTs and MRIs PROCEDURE: CT ANG CHEST/ABD W/WO CONTRAST ([id number]) INDICATIONS: syncope, elevated ddimer TECHNIQUE: Precontrast 5 mm thick sections acquired from the lung apices to the iliac crests. After the administration of intravenous contrast, 3 mm thick sections again acquired from the lung apices to the iliac crests. 3-dimensional maximum intensity projection (MIP) oblique sagittal and coronal reformats were then acquired, and/or 3-dimensional volume rendering reformats. For radiation dose reduction, the following was used: automated exposure control. COMPARISON: None. FINDINGS: Image quality: Excellent. AORTA: No dissection. There is aneurysmal dilation of the ascending of the thoracic aorta, measuring 45 mm. CHEST: Lungs and pleura: There are dependent changes in the bases bilaterally. No pleural effusions or pneumothorax. Central and peripheral airways are patent and normal in caliber. Mediastinum: Heart size is mildy enlarged. No pericardial effusion. No mediastinal or hilar adenopathy by size criteria. Central pulmonary arteries demonstrate enlargement, measuring 33 mm in transverse diameter. Esophagus is normal in caliber. No hiatal hernias. Bones and chest wall: No axillary adenopathy by size criteria. Thyroid gland is unremarkable. No suspicious bony lesions. No vertebral body compression fractures. ABDOMEN: Vasculature: Celiac trunk and mesenteric arteries are patent. Renal arteries are also patent. Solid organs: Liver and spleen are normal in size. Gallbladder is unremarkable. Biliary system is non dilated. Pancreas enhances normally. No adrenal nodules. Both kidneys are normal in size and enhancement, without hydronephrosis. Peritoneum and bowel: No free fluid or air. Bowel loops are normal in caliber and wall thickness. Nodes and vessels: No retroperitoneal or mesenteric adenopathy by size criteria. Inferior vena cava is normal in morphology. Bones: No suspicious bony lesions. No vertebral body compression fractures. Miscellaneous: No ventral hernias. IMPRESSION: 1. Ascending thoracic aortic aneurysmal dilation without dissection. 2. Enlargement of the pulmonary artery suggestive of pulmonary artery hypertension. 3. Cardiomegaly. Dictated by: Elisabeth Grewal M.D. on 10/06/2016 at 13:14 Approved by: Elisabeth Grewal M.D. on 10/06/2016 at 13:25 PROCEDURE: X-RAY CHEST ONE VIEW, PORTABLE ([id number]) INDICATIONS: syncope TECHNIQUE: One view of the chest was acquired. COMPARISON: [facility], CR, XR CHEST 1VW (PORTABLE), 05/25/2016, 12 :41. [facility], CR, XR CHEST 1VW (PORTABLE), 07/03/2016, 5:02. FINDINGS: Surgical changes and devices: None. Lungs and pleura: Patient is rotated, limiting evaluation. There is persistent appearance of patchy left upper lobe opacity which has not significantly changed compared to prior exam. There is persistent, although less prominent appearance of retrocardiac/left basilar opacity. Mediastinum: Mediastinal contours appear normal. Heart size is normal. Bones and chest wall: No suspicious bony lesions. Overlying soft tissues appear unremarkable. IMPRESSION: Left upper lobe and retrocardiac/left basilar opacities as above. As noted, the left upper lobe opacity has not significantly changed compared to 07/03/16. This could represent interval scarring or incompletely treated infection. However, other etiologies such as mass lesion cannot be definitively excluded. Left basilar opacity is likely sales representative consultant of improving, although incompletely resolved infection. Recommend continued interval followup to document resolution. Dictated by: Elisabeth Grewal M.D. on 10/06/2016 at 10:46 Approved by: Elisabeth Grewal M.D. 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 She then fractured her left hip approximate 4 years ago and did not have it repaired. however, patient was not totally bedbound until approximately 1 year ago after she had a CVA with left-sided weakness. Patient has had multiple admissions over the last year including one for severe decubitus ulcers which have been infected with multiple organisms. Patient was cared for by Dr. Calderón and at one point received 2 weeks of IV ertapenem. Patient is also suffering from dementia. As her could no longer care for her patient was transferred to [facility] and her decubitus ulcers have been improving. However, today [facility] staff members found her unresponsive for approximately 10 minutes. Patient was transferred to [facility] emergency room where she was evaluated by Dr. Milad Barber. Patient was found to have sepsis from a urinary tract infection and it was believed that this was responsible for her acute encephalopathy. Patient was therefore admitted to the hospital service for further evaluation and treatment. # Acute encephalopathy - As appears to be due to sepsis which appears to be due to a urinary tract infection. - No evidence of decubitus ulcer infection. - Appears improved after IV antibiotic therapy in the emergency room.. - Continue to monitor closely. # Urinary tract infection with sepsis - Check urine culture results. - Check blood cultures results. - Agree with starting Rocephin empirically for now, will continue. - We will check lactic acid level every 4 hours until normalized. - We will give patient gentle hydration with normal saline at 80 mL an hour. I see no benefit in large boluses of IV fluids at this time # Decubitus ulcers - We will ask the wound care team to see the patient in consultation. # Dysphagia - Likely exacerbated by the above condition. - We will ask speech therapy to see the patient. # Advance care planning - Palliative care seen the patient on numerous occasions and patient remains a full code. This appears to be due to a lack of understanding the patient and the patient's part. We will try to get further clarification from the patient's daughter Isabell Disposition: The patient will likely be her more than 2 midnights for evaluation and treatment of the above condition, therefore the patient will be made an inpatient. Pain Evaluation: Adequate Pain Control GI Prophylaxis: Not indicated VTE Prophylaxis: Sub-Q Enoxaparin Resuscitation Status: CPR: Attempt Resuscitation Brenton Munoz MD Oct 06, 2016 22:02
[2016-10-07 02:51] VITALS: BP 147/83; PULSE 79; RESP 16; O2SAT 97
[2016-10-07 04:52] VITALS: PULSE 67
--- NOTE | 2016-10-07 06:10 | NUR ---
diet Pt is getting sips of HT liquids and intermittently coughing with it. this RN hasn't given pt any fluids until speech eval. denies pain or discomfort. Alert and oriented to self only. on clinitron bed. mepilex to sacrum and right hip intact. palencia patent, draining to gravity.
[2016-10-07 06:21] VITALS: BP 151/92; PULSE 77; RESP 16; O2SAT 96
[2016-10-07 06:43] LABS: BASOPHILS % (AUTO) 0.6 % (0-3); MONOCYTES % (AUTO) 6.9 % (4-12); Mean Corpuscular Hemoglobin 30.5 pg (27.0-35.0); Mean Corpuscular Volume 94.8 fL (81-100); NEUTROPHILS % (AUTO) 70.7 % (40-74); Platelet Count 301 bil/L (150-400)
[2016-10-07 06:54] LABS: INR 0.99 ratio
[2016-10-07 07:48] LABS: Magnesium 1.8 mg/dL (1.6-2.6); Phosphorus 3.4 mg/dL (2.5-4.9)
[2016-10-07] MEDS ORDERED: Magnesium Sulf 2 Gm/50mL Water 2 GM in IV Premix 1 EACH IV ONE (09:05)
[2016-10-07] MEDS: 0.9% NaCl + KCl 20 mEq/L 1,000 ML IV SCH (09:58)
[2016-10-07] MEDS: Potassium Chloride 20 mEq SR Tablet PO SCH ×2 (10:12→18:32)
--- NOTE | 2016-10-07 10:35 | DRSVH ---
PROCEDURE: X-RAY CHEST ONE VIEW, PORTABLE ([id number]) INDICATIONS: Sepsis/Possible Infiltrate or aspiration TECHNIQUE: One view of the chest was acquired. COMPARISON: [facility], CR, XR CHEST 1VW (PORTABLE), 10/06/2016, 10:23. FINDINGS: Surgical changes and devices: None. Lungs and pleura: No pleural effusions or pneumothorax. Bibasilar airspace opacities present otherw ise lungs are clear. Mediastinum: Mediastinal contours appear normal. Heart size is enlarged. Bones and chest wall: No suspicious bony lesions. Overlying soft tissues appear unremarkable. IMPRESSION: Bibasilar atelectasis versus aspiration or pneumonia. Correlate clinically. Dictated by: Yan Man RRA Interpreted: Cassi Glass MD on 10/07/2016 at 10:34 Transcribed by: YUNIOR on 10/07/2016 at 10:35 Approved by: Cassi Glass M.D. on 10/07/2016 at 17:11
--- NOTE | 2016-10-07 10:36 | NUR ---
Wound Note Wound evaluation order received , pt seen at bedside. 86 yo bed bound SNF resident admitted to [facility] after a period of unresponsiveness at SNF. 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 Wounds have made wonderful progress as right hip PU is basically healed at this time and is protected with a foam dressing. Sacral PU is 4 cm L x 2 cm W x 0.3 cm D, there is no tunneling or undermining noted and no sign or symptom of infection, wound base is healthy granulation tissue, drainage is minimal. Wound cleaned and redressed with adhesive Mepilex dressing, these dressings can be changed on PRN basis by nursing. Pt on appropriate bed (clinitron). Wound to follow up as needed.
--- NOTE | 2016-10-07 10:58 | NUR ---
Evaluation completed. Please go to "Notes" then click on "Assessments and Notes" (bottom left corner of screen). Then select appropriate discipline tab on top of screen.
--- NOTE | 2016-10-07 11:15 | NUR ---
Called and spoke with Temi admission coordinator at [facility], confirmed patient was not open with Hospice in their facility. Patient can return when ready. Gave access and faxed facesheet. Updated SPEECH PATHOLOGY SUPERVISOR and UR RN
[2016-10-07 12:26] VITALS: BP 144/80; PULSE 76; RESP 16; O2SAT 94
--- NOTE | 2016-10-07 14:35 | NUR ---
Skin Patient on PU protocol and on Clinitron bed. Q2 hour skin care/checks in place. Sacral wound evaluated and assessed with payment collector. (see wound care notes) Mepilex dressing replaced. Right hip healing wound assessed with payment collector. This RN placed a small Mepilex on left medial knee as skin was slightly slow to carlos. postmaster relief aware. Pillow placed between knees to further reduce pressure. Left medial great toe has slow to carlos redness. Frequent checks and repositioning in place to reduce pressure. Shanell care provided and sacral wound area is clean and dry. Patient denies pain or discomfort. Bed low and locked, care and rounding ongoing. Patient is drowsy but pleasant, conversant at times and cooperative with care.
[2016-10-07] MEDS: cefTRIAXone 2,000 mg/D5W 50 mL IV Minibag Plus IV SCH ×2 (15:38)
[2016-10-07 16:07] VITALS: BP 140/81; PULSE 77; RESP 16; O2SAT 94
[2016-10-07 20:48] VITALS: BP 152/77; PULSE 76; RESP 16; O2SAT 98
--- NOTE | 2016-10-07 22:39 | PCM.PNMED ---
Subjective Date of Service Oct 07, 2016 Subjective Patient appears to be more awake and alert and lucid. She has no new complaints lying in a Clinitron bed. Exam Vital Signs Vital Sign - Last Date Time Temp Pulse Resp B/P Pulse Ox O2 Delivery O2 Flow Rate FiO2 10/07/16 20:48 36.7 76 16 152/77 98 Room Air Intake and Output 10/06/16 10/06/16 10/07/16 Cumulative From/Thru 15:00 23:00 07:00 10/06/16 16:25 - 10/07/16 06:13 Intake Total 0 ml 924 ml 924 ml Output Total 1950 ml 900 ml 2850 ml Balance -1950 ml 24 ml -1926 ml Intake Oral 0 ml 225 ml 225 ml IV Total 699 ml 699 ml Output Urine Total 1950 ml 900 ml 2850 ml # Bowel Movements 0 0 0 Exam General: The patient is lying on her right side in no apparent distress. She is pleasantly confused. HEENT: Head is atraumatic and normocephalic. Eyes: Pupils are equally round and reactive to light and accommodation. Extraocular muscles are intact. Sclera are white, anicteric. Subconjunctival mucosa is pink. Ears and nose are unremarkable. Oropharynx: There is no mucosal lesions, there is no thrush, there is no pharyngitis. Patient is wearing dentures. Neck: Is supple, there are no nodes, or masses or tenderness. Chest: Is clear to auscultation and percussion. There are no rales, rhonchi, wheezes or rubs. Heart: Rate, rhythm is regular. There is no murmur, rub or gallop. Abdomen: Good bowel sounds are present. Abdomen is soft, nontender, no organomegaly or masses were appreciated. Extremities: Are symmetrical and well perfused. The decubitus ulcers in the malleolar area appear to be healing well the decubitus ulcers on her sacrum appear to be healing well. There is no edema, there is no cellulitis, no rash. Mediflex is been placed on a very small skin breakdown area on the left knee. Neurologic: Cranial nerves II through XII are intact. There is slight weakness of the left upper extremity and paresis of the left lower extremity. Psychiatric: Patients mood is calm and she shows no sign of agitation. Genital: Deferred Rectal: Deferred Lab and Diagnostics Result Diagram: 10/07/1662410/07/16624 Microbiology Blood cultures are pending Name: RONNA MENDEZ Age/Sex: 86/F Attend Dr: Brenton Munoz Acct: [id number] Unit: [id number] Status: ADM IN [place] [facility] [place] Re10/06/16 Disch: Specimen: [id number] Collected: 10/06/16 Status: RES Req#: [id number] Received: 10/06/16 Source: URINE CC Sp Desc : NITIN Patel Dr: Milad Crenshaw DO Ordered: URINE CULT Procedure Result Verified Site Microbiology OTILIO CULT URINE Preliminary 10/07/16 PRELIMINARY ID GRAM NEGATIVE LUCINDA ID AND SENS TO FOLLOW COLONY COUNT/QUANTITY >100,000 CFU/ml X-Rays, CTs and MRIs PROCEDURE: CT ANG CHEST/ABD W/WO CONTRAST ([id number]) INDICATIONS: syncope, elevated ddimer TECHNIQUE: Precontrast 5 mm thick sections acquired from the lung apices to the iliac crests. After the administration of intravenous contrast, 3 mm thick sections again acquired from the lung apices to the iliac crests. 3-dimensional maximum intensity projection (MIP) oblique sagittal and coronal reformats were then acquired, and/or 3-dimensional volume rendering reformats. For radiation dose reduction, the following was used: automated exposure control. COMPARISON: None. FINDINGS: Image quality: Excellent. AORTA: No dissection. There is aneurysmal dilation of the ascending of the thoracic aorta, measuring 45 mm. CHEST: Lungs and pleura: There are dependent changes in the bases bilaterally. No pleural effusions or pneumothorax. Central and peripheral airways are patent and normal in caliber. Mediastinum: Heart size is mildy enlarged. No pericardial effusion. No mediastinal or hilar adenopathy by size criteria. Central pulmonary arteries demonstrate enlargement, measuring 33 mm in transverse diameter. Esophagus is normal in caliber. No hiatal hernias. Bones and chest wall: No axillary adenopathy by size criteria. Thyroid gland is unremarkable. No suspicious bony lesions. No vertebral body compression fractures. ABDOMEN: Vasculature: Celiac trunk and mesenteric arteries are patent. Renal arteries are also patent. Solid organs: Liver and spleen are normal in size. Gallbladder is unremarkable. Biliary system is non dilated. Pancreas enhances normally. No adrenal nodules. Both kidneys are normal in size and enhancement, without hydronephrosis. Peritoneum and bowel: No free fluid or air. Bowel loops are normal in caliber and wall thickness. Nodes and vessels: No retroperitoneal or mesenteric adenopathy by size criteria. Inferior vena cava is normal in morphology. Bones: No suspicious bony lesions. No vertebral body compression fractures. Miscellaneous: No ventral hernias. IMPRESSION: 1. Ascending thoracic aortic aneurysmal dilation without dissection. 2. Enlargement of the pulmonary artery suggestive of pulmonary artery hypertension. 3. Cardiomegaly. Dictated by: Elisabeth Grewal M.D. on 10/06/2016 at 13:14 Approved by: Elisabeth Grewal M.D. on 10/06/2016 at 13:25 PROCEDURE: X-RAY CHEST ONE VIEW, PORTABLE ([id number]) INDICATIONS: syncope TECHNIQUE: One view of the chest was acquired. COMPARISON: [facility], CR, XR CHEST 1VW (PORTABLE), 05/25/2016, 12 :41. [facility], CR, XR CHEST 1VW (PORTABLE), 07/03/2016, 5:02. FINDINGS: Surgical changes and devices: None. Lungs and pleura: Patient is rotated, limiting evaluation. There is persistent appearance of patchy left upper lobe opacity which has not significantly changed compared to prior exam. There is persistent, although less prominent appearance of retrocardiac/left basilar opacity. Mediastinum: Mediastinal contours appear normal. Heart size is normal. Bones and chest wall: No suspicious bony lesions. Overlying soft tissues appear unremarkable. IMPRESSION: Left upper lobe and retrocardiac/left basilar opacities as above. As noted, the left upper lobe opacity has not significantly changed compared to 07/03/16. This could represent interval scarring or incompletely treated infection. However, other etiologies such as mass lesion cannot be definitively excluded. Left basilar opacity is likely pharmaceutical sales representative of improving, although incompletely resolved infection. Recommend continued interval followup to document resolution. Dictated by: Elisabeth Grewal M.D. on 10/06/2016 at 10:46 Approved by: Elisabeth Grewal M.D. 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 She then fractured her left hip approximate 4 years ago and did not have it repaired. however, patient was not totally bedbound until approximately 1 year ago after she had a CVA with left-sided weakness. Patient has had multiple admissions over the last year including one for severe decubitus ulcers which have been infected with multiple organisms. Patient was cared for by Dr. Calderón and at one point received 2 weeks of IV ertapenem. Patient is also suffering from dementia. As her could no longer care for her patient was transferred to [facility] and her decubitus ulcers have been improving. However, today [facility] staff members found her unresponsive for approximately 10 minutes. Patient was transferred to [facility] emergency room where she was evaluated by Dr. Milad Barber. Patient was found to have sepsis from a urinary tract infection and it was believed that this was responsible for her acute encephalopathy. Patient was therefore admitted to the hospital service for further evaluation and treatment. # Acute encephalopathy, presently does have admission. Improving - As appears to be due to sepsis which appears to be due to a urinary tract infection. - No evidence of decubitus ulcer infection. - Appears improved after IV antibiotic therapy in the emergency room.. - Continue to monitor closely. # Urinary tract infection with sepsis, present at time of admission. Improving - Check urine culture results. - Check blood cultures results. - Agree with starting Rocephin empirically for now, will continue. - We will check lactic acid level every 4 hours until normalized. - We will give patient gentle hydration with normal saline at 80 mL an hour. I see no benefit in large boluses of IV fluids at this time # Decubitus ulcers, present at the time of admission and have been improving over time - We will ask the wound care team to see the patient in consultation. # Dysphagia, present at the time of admission - Likely exacerbated by the above condition. - We will ask speech therapy to see the patient. # Advance care planning - Palliative care seen the patient on numerous occasions and patient remains a full code. This appears to be due to a lack of understanding the patient and the patient's part. We will try to get further clarification from the patient's daughter Isabell Disposition: The patient will likely be here for another 48 hours for the evaluation and treatment of the above condition. Pain Evaluation: Adequate Pain Control GI Prophylaxis: Not indicated VTE Prophylaxis: Sub-Q Enoxaparin Resuscitation Status: CPR: Attempt Resuscitation Brenton Munoz MD Oct 07, 2016 22:39
[2016-10-08] MEDS: 0.9% NaCl + KCl 20 mEq/L 1,000 ML IV SCH ×2 (01:00→14:37)
[2016-10-08 05:42] VITALS: BP 158/91; PULSE 75; RESP 19; O2SAT 96
[2016-10-08 06:42] LABS: BASOPHILS % (AUTO) 0.6 % (0-3); EOSINOPHILS % (AUTO) 1.1 % (0-5); MONOCYTES % (AUTO) 9.3 % (4-12); Mean Corpuscular Hemoglobin 31.2 pg (27.0-35.0); Mean Corpuscular Volume 95.1 fL (81-100); NEUTROPHILS % (AUTO) 65.2 % (40-74); Platelet Count 313 bil/L (150-400)
[2016-10-08 07:08] LABS: Magnesium 1.9 mg/dL (1.6-2.6)
--- NOTE | 2016-10-08 07:16 | NUR ---
Incont stool Pt had episode of stool incontinence. Stool was light brown. Pt has had no complaints of pain all night.
[2016-10-08] MEDS: Potassium Chloride 20 mEq SR Tablet PO SCH ×2 (08:42→17:24)
[2016-10-08 13:15] VITALS: BP 126/92; PULSE 83; RESP 18; O2SAT 95
--- NOTE | 2016-10-08 13:55 | NUR ---
NUTRITION ASSESSMENT: ASSESS: 86 yo Female admitted for urosepsis. She has Sacral stage 4 Pressure injury and R hip pressure ulcer basically healed per notes. RDs have extensively reviewed high kcal/pro nutrition therapy numerous times with and pt. Weight appears fairly stable since August 2016. PMHX: CVA, colon cancer, SBO, HLD, osteoarthritis LABS: Reviewed. Cr 0.33, Alb 2.4. MEDS: Reviewed. GI: BM x 1 today. SKIN: Sacral stage 4 Pressure injury, PU on R hip nearly healed. Wound care following. Visible muscle and subcutaneous fat loss in arms, shoulders, face, and neck. CURRENT WTS: 41.8 kg Wt 07/03/16: 54 kg. Wt Changes: 12.2 kg wt loss x 3 months (22.6% = significant) DIET: Pureed, Pudding Thick. PO intake 25%. EST. NEEDS: wound healing, Weight gain. Kcals: 4419-7520 kcal/day (35-40 kcal/kg BW) Pro: 60-85 g/day (1.5-2.0 g/kg BW) NUTRITION DIAGNOSIS: 1.) Increased nutrient needs related to increased demand for wound healing as evidence by Sacral stage 4 Pressure injury. 2.) Severe malnutrition of unclear etiology as evidenced by 22.6% wt loss x 3 months, and loss of LBM and subcutaneous fat and non-healing wounds 3.) Inadequate oral intake related to decreased ability to consume sufficient energy as evidenced by pt only eating 25% of meals and pt being a very picky eater. NUTRITION INTERVENTION: 1.) Encourage 5-6 small meals per day w/ high calorie/protein foods 2.) Will send Ancelmo BID to promote wound healing 3.) Will send strawberry Ensure TID to promote calorie/protein intake MONITOR / EVAL: PO intake, wounds, weight, labs, GI, nutritional status. Will continue to monitor per high nutrition risk guidelines
--- NOTE | 2016-10-08 14:31 | NUR ---
Robbins Catheter Removal Robbins DCd per doctors order. Pt tolerated well. Shanell care preformed and pt resting comfortably. Bed in low position, 3 rails up, call light in reach. Will continue to monitor. Addendum: 10/08/16 at 1809 by BRIANDA EDWARDS This SRN went in to bladder scan and pt informed that she had just voided. [place] pad in place fully soaked with sheet under pt. Shanell care provided as well as complete bed and gown change. New pad in place. Pt very appreciative of care provided today. Addendum: 10/08/16 at 1828 by RENUKA KWAN RN Yelena YEBOAH approves of above note(s)
--- NOTE | 2016-10-08 14:42 | NUR ---
Social Work: Initial Assessment/ Readiness for d/c Data: Pt is an 86 y/o female admitted for urosepsis. Pt's PCP is Dr Rush, pt's insurance is Medicare with [employer] supp. EMR reviewed. Readmit score is 4, high. MACHINE SIGN WRITER spoke with pt's daughter regarding initial assessment. She states pt lives at [facility] where she uses a wheel chair, does not drive, has hx of HH and SNF, no LTC or VA benefits, and is not a caregiver. [facility] states they can take pt back when medically stable for d/c. Pt discussed in rounds. MD states pt possibly to d/c today pending lab cultures. MACHINE SIGN WRITER will continue to follow. Assessment: Pt from [facility]. Plan: Pt will d/c back to [facility] private pay when medically stable, possibly today per MD. MACHINE SIGN WRITER will continue to follow. CHEPE Duque Addendum: 10/08/16 at 1453 by MEDARDO FERNANDO Amended: Links added.
[2016-10-08] MEDS: cefTRIAXone 2,000 mg/D5W 50 mL IV Minibag Plus IV SCH ×2 (15:25)
[2016-10-08 20:26] VITALS: BP 145/90; PULSE 81; RESP 18; O2SAT 96
--- NOTE | 2016-10-08 23:50 | PCM.PNMED ---
Subjective Date of Service Oct 08, 2016 Subjective Patient is feeling better and is more lucid. She has no new complaints. Exam Vital Signs Vital Sign - Last Date Time Temp Pulse Resp B/P Pulse Ox O2 Delivery O2 Flow Rate FiO2 10/08/16 20:26 36.6 81 18 145/90 96 Room Air Intake and Output 10/07/16 10/07/16 10/08/16 Cumulative From/Thru 15:00 23:00 07:00 10/06/16 16:25 - 10/08/16 06:45 Intake Total 1168 ml 849 ml 2941 ml Output Total 800 ml 1200 ml 4850 ml Balance 368 ml -351 ml -1909 ml Intake Oral 268 ml 0 ml 493 ml IV Total 900 ml 849 ml 2448 ml Output Urine Total 800 ml 1200 ml 4850 ml # Bowel Movements 1 1 Exam General: The patient is lying on her right side in no apparent distress. She is pleasantly confused. HEENT: Head is atraumatic and normocephalic. Eyes: Pupils are equally round and reactive to light and accommodation. Extraocular muscles are intact. Sclera are white, anicteric. Subconjunctival mucosa is pink. Ears and nose are unremarkable. Oropharynx: There is no mucosal lesions, there is no thrush, there is no pharyngitis. Patient is wearing dentures. Neck: Is supple, there are no nodes, or masses or tenderness. Chest: Is clear to auscultation and percussion. There are no rales, rhonchi, wheezes or rubs. Heart: Rate, rhythm is regular. There is no murmur, rub or gallop. Abdomen: Good bowel sounds are present. Abdomen is soft, nontender, no organomegaly or masses were appreciated. Extremities: Are symmetrical and well perfused. The decubitus ulcers in the malleolar area appear to be healing well the decubitus ulcers on her sacrum appear to be healing well. There is no edema, there is no cellulitis, no rash. Mediflex is been placed on a very small skin breakdown area on the left knee. Neurologic: Cranial nerves II through XII are intact. There is slight weakness of the left upper extremity and paresis of the left lower extremity. Psychiatric: Patients mood is calm and she shows no sign of agitation. Genital: Deferred Rectal: Deferred Lab and Diagnostics Result Diagram: 10/08/1650 10/08/1650 Microbiology Blood cultures are pending Name: RONNA MENDEZ Age/Sex: 86/F Attend Dr: Brenton Munoz Acct: [id number] Unit: [id number] Status: AD[place] IN [place] [facility] [place]10/06/16 Disch: Specimen: [id number] Collected: 10/06/16-135 Status: RES Req#: [id number] Received: 10/06/16-1402 Source: URINE CC Sp Desc : PP Amanda Dr: Milad Crenshaw DO Ordered: URINE CULT Procedure Result Verified Site Microbiology OTILIO CULT URINE Preliminary 10/07/16-850 PRELIMINARY ID GRAM NEGATIVE LUCINDA ID AND SENS TO FOLLOW COLONY COUNT/QUANTITY >100,000 CFU/ml X-Rays, CTs and MRIs PROCEDURE: CT ANG CHEST/ABD W/WO CONTRAST ([id number]) INDICATIONS: syncope, elevated ddimer TECHNIQUE: Precontrast 5 mm thick sections acquired from the lung apices to the iliac crests. After the administration of intravenous contrast, 3 mm thick sections again acquired from the lung apices to the iliac crests. 3-dimensional maximum intensity projection (MIP) oblique sagittal and coronal reformats were then acquired, and/or 3-dimensional volume rendering reformats. For radiation dose reduction, the following was used: automated exposure control. COMPARISON: None. FINDINGS: Image quality: Excellent. AORTA: No dissection. There is aneurysmal dilation of the ascending of the thoracic aorta, measuring 45 mm. CHEST: Lungs and pleura: There are dependent changes in the bases bilaterally. No pleural effusions or pneumothorax. Central and peripheral airways are patent and normal in caliber. Mediastinum: Heart size is mildy enlarged. No pericardial effusion. No mediastinal or hilar adenopathy by size criteria. Central pulmonary arteries demonstrate enlargement, measuring 33 mm in transverse diameter. Esophagus is normal in caliber. No hiatal hernias. Bones and chest wall: No axillary adenopathy by size criteria. Thyroid gland is unremarkable. No suspicious bony lesions. No vertebral body compression fractures. ABDOMEN: Vasculature: Celiac trunk and mesenteric arteries are patent. Renal arteries are also patent. Solid organs: Liver and spleen are normal in size. Gallbladder is unremarkable. Biliary system is non dilated. Pancreas enhances normally. No adrenal nodules. Both kidneys are normal in size and enhancement, without hydronephrosis. Peritoneum and bowel: No free fluid or air. Bowel loops are normal in caliber and wall thickness. Nodes and vessels: No retroperitoneal or mesenteric adenopathy by size criteria. Inferior vena cava is normal in morphology. Bones: No suspicious bony lesions. No vertebral body compression fractures. Miscellaneous: No ventral hernias. IMPRESSION: 1. Ascending thoracic aortic aneurysmal dilation without dissection. 2. Enlargement of the pulmonary artery suggestive of pulmonary artery hypertension. 3. Cardiomegaly. Dictated by: Elisabeth Grewal M.D. on 10/06/2016 at 13:14 Approved by: Elisabeth Grewal M.D. on 10/06/2016 at 13:25 PROCEDURE: X-RAY CHEST ONE VIEW, PORTABLE ([id number]) INDICATIONS: syncope TECHNIQUE: One view of the chest was acquired. COMPARISON: [facility], CR, XR CHEST 1VW (PORTABLE), 05/25/2016, 12 :41. [facility], CR, XR CHEST 1VW (PORTABLE), 07/03/2016, 5:02. FINDINGS: Surgical changes and devices: None. Lungs and pleura: Patient is rotated, limiting evaluation. There is persistent appearance of patchy left upper lobe opacity which has not significantly changed compared to prior exam. There is persistent, although less prominent appearance of retrocardiac/left basilar opacity. Mediastinum: Mediastinal contours appear normal. Heart size is normal. Bones and chest wall: No suspicious bony lesions. Overlying soft tissues appear unremarkable. IMPRESSION: Left upper lobe and retrocardiac/left basilar opacities as above. As noted, the left upper lobe opacity has not significantly changed compared to 07/03/16. This could represent interval scarring or incompletely treated infection. However, other etiologies such as mass lesion cannot be definitively excluded. Left basilar opacity is likely health and safety representative of improving, although incompletely resolved infection. Recommend continued interval followup to document resolution. Dictated by: Elisabeth Grewal M.D. on 10/06/2016 at 10:46 Approved by: Elisabeth Grewal M.D. 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 She then fractured her left hip approximate 4 years ago and did not have it repaired. however, patient was not totally bedbound until approximately 1 year ago after she had a CVA with left-sided weakness. Patient has had multiple admissions over the last year including one for severe decubitus ulcers which have been infected with multiple organisms. Patient was cared for by Dr. Calderón and at one point received 2 weeks of IV ertapenem. Patient is also suffering from dementia. As her could no longer care for her patient was transferred to [facility] and her decubitus ulcers have been improving. However, today [facility] staff members found her unresponsive for approximately 10 minutes. Patient was transferred to [facility] emergency room where she was evaluated by Dr. Milad Barber. Patient was found to have sepsis from a urinary tract infection and it was believed that this was responsible for her acute encephalopathy. Patient was therefore admitted to the hospital service for further evaluation and treatment. # Acute encephalopathy, present on admission. Improving - As appears to be due to sepsis which appears to be due to a urinary tract infection secondary to gram-negative rods.. - No evidence of decubitus ulcer infection. - Appears improved after IV antibiotic therapy in the emergency room.. - Continue to monitor closely. # Urinary tract infection with sepsis secondary to gram-negative rods, present at time of admission. Improving - Check final urine culture results. - Check blood cultures results. - We will continue Rocephin empirically for now. - We have checked lactic acid levels every 4 hours until normalized. - We will continue gentle hydration with normal saline at 80 mL an hour. I see no benefit in large boluses of IV fluids at this time # Decubitus ulcers, present at the time of admission and have been improving over time - We will ask the wound care team to see the patient in consultation. # Dysphagia, present at the time of admission - Likely exacerbated by the above condition. - We will ask speech therapy to see the patient. # Advance care planning - Palliative care seen the patient on numerous occasions and patient remains a full code. This appears to be due to a lack of understanding the patient and the patient's part. We will try to get further clarification from the patient's daughter Isabell Disposition: The patient will likely be here for another 24-48 hours for the evaluation and treatment of the above condition. Pain Evaluation: Adequate Pain Control GI Prophylaxis: Not indicated VTE Prophylaxis: Sub-Q Enoxaparin Resuscitation Status: CPR: Attempt Resuscitation TammyBrenton MD Oct 08, 2016 23:50
[2016-10-09] MEDS: 0.9% NaCl + KCl 20 mEq/L 1,000 ML IV SCH ×2 (01:05→17:14)
[2016-10-09 05:29] VITALS: BP 149/94; PULSE 75; RESP 18; O2SAT 97
[2016-10-09 06:00] LABS: BASOPHILS % (AUTO) 0.7 % (0-3); EOSINOPHILS % (AUTO) 1.1 % (0-5); MONOCYTES % (AUTO) 9.3 % (4-12); Mean Corpuscular Hemoglobin 30.6 pg (27.0-35.0); Mean Corpuscular Volume 94.6 fL (81-100); NEUTROPHILS % (AUTO) 62.5 % (40-74); Platelet Count 298 bil/L (150-400)
[2016-10-09 06:18] LABS: Magnesium 1.8 mg/dL (1.6-2.6)
--- NOTE | 2016-10-09 07:10 | NUR ---
José Luis care Pt incontinent of large void X2 this shift. Pt was provided josé luis care and bed linens were changed. Mepilex dressing in tact and clean.
[2016-10-09] MEDS ORDERED: Magnesium Sulf 2 Gm/50mL Water 2 GM in IV Premix 1 EACH IV ONE (08:25)
[2016-10-09 09:12] VITALS: BP 140/88; PULSE 91; RESP 16; O2SAT 95
--- NOTE | 2016-10-09 09:13 | NUR ---
DEMOND: Spoke with [employer] and she is following up with daughter via phone. 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
[2016-10-09] MEDS: Potassium Chloride 20 mEq SR Tablet PO SCH ×2 (09:25→17:14)
--- NOTE | 2016-10-09 10:35 | NUR ---
DEMOND signed CHEPE Duque
[2016-10-09 12:34] VITALS: BP 142/82; RESP 16; O2SAT 93
--- NOTE | 2016-10-09 14:19 | NUR ---
INFECTION WOUND P-Patient has multiple pressure ulcers (coccyx and hip) and UTI. I- Antibiotic treatment continued, wound care called to look at dressings/wounds. E- Wound care in states "all looks good". WBC count WNL, Blood cultures pending, patient no temperature.
--- NOTE | 2016-10-09 14:20 | NUR ---
Wound Care Patient seen for revaluation of pressure injuries. Pleasant 86 yo female in clinitron bed, conversant and remembers my name. Dressings taken down at sacrum, right hip and left knee. Left knee is without a wound, right hip is now completely healed stage 3 pressure injury, protecting this with adhesive foam yet though. Sacral pressure injury is 3 cm L x 1 cm W x 0.1 cm D, there is no tunneling or undermining noted and no sign or symptom of infection, wound base is healthy granulation tissue, drainage is minimal. Wound cleaned and redressed with adhesive Mepilex dressing, these dressings can be changed on PRN basis by nursing. Pt on appropriate bed (clinitron). Wound to follow up as needed.
[2016-10-09] MEDS: cefTRIAXone 2,000 mg/D5W 50 mL IV Minibag Plus IV SCH ×2 (14:48)
[2016-10-09 17:20] VITALS: BP 124/70; PULSE 90; RESP 16; O2SAT 95
[2016-10-09 21:28] VITALS: BP 134/83; PULSE 77; RESP 18; O2SAT 98
--- NOTE | 2016-10-09 23:33 | PCM.PNMED ---
Subjective Date of Service Oct 09, 2016 Subjective Patient has no new complaints. She is lying on her [place] bed in no apparent distress. Exam Vital Signs Vital Sign - Last Date Time Temp Pulse Resp B/P Pulse Ox O2 Delivery O2 Flow Rate FiO2 10/09/16 21:28 36.8 77 18 134/83 98 Room Air Intake and Output 10/08/16 10/08/16 10/09/16 Cumulative From/Thru 15:00 23:00 07:00 10/06/16 12:20 - 10/09/16 06:54 Intake Total 1184 ml 100 ml 5225 ml Output Total 650 ml 5500 ml Balance 534 ml 100 ml -275 ml Intake Oral 320 ml 100 ml 913 ml IV Total 864 ml 4312 ml Output Urine Total 650 ml 5500 ml # Voids 1 2 3 # Bowel Movements 1 Exam General: The patient is lying on her right side in no apparent distress. She is pleasantly confused. She remains in good spirits HEENT: Head is atraumatic and normocephalic. Eyes: Pupils are equally round and reactive to light and accommodation. Extraocular muscles are intact. Sclera are white, anicteric. Subconjunctival mucosa is pink. Ears and nose are unremarkable. Oropharynx: There is no mucosal lesions, there is no thrush, there is no pharyngitis. Patient is wearing dentures. Neck: Is supple, there are no nodes, or masses or tenderness. Chest: Is clear to auscultation and percussion. There are no rales, rhonchi, wheezes or rubs. Heart: Rate, rhythm is regular. There is no murmur, rub or gallop. Abdomen: Good bowel sounds are present. Abdomen is soft, nontender, no organomegaly or masses were appreciated. Extremities: Are symmetrical and well perfused. The decubitus ulcers in the malleolar area appear to be healing well the decubitus ulcers on her sacrum appear to be healing well. There is no edema, there is no cellulitis, no rash. Mediflex is been placed on a very small skin breakdown area on the left knee. Neurologic: Cranial nerves II through XII are intact. There is slight weakness of the left upper extremity and paresis of the left lower extremity. Psychiatric: Patients mood is calm and she shows no sign of agitation. Genital: Deferred Rectal: Deferred Lab and Diagnostics Result Diagram: 10/09/165 10/09/165 Microbiology Blood cultures are pending Name: RONNA MENDEZ Age/Sex: 86/F Attend Dr: Brenton Munoz Acct: [id number] Unit: [id number] Status: ADM IN Location: [facility] [place] 3018-1 Re10/06/16 Disch: Specimen: [id number] Collected: 10/06/16 Status: RES Req#: [id number] Received: 10/06/16140 Source: URINE CC Sp Desc : NITIN Patel Dr: Milad Crenshaw DO Ordered: URINE CULT Procedure Result Verified Site Microbiology OTILIO CULT URINE Preliminary 10/07/16 PRELIMINARY ID GRAM NEGATIVE LUCINDA ID AND SENS TO FOLLOW COLONY COUNT/QUANTITY >100,000 CFU/ml X-Rays, CTs and MRIs PROCEDURE: CT ANG CHEST/ABD W/WO CONTRAST ([id number]) INDICATIONS: syncope, elevated ddimer TECHNIQUE: Precontrast 5 mm thick sections acquired from the lung apices to the iliac crests. After the administration of intravenous contrast, 3 mm thick sections again acquired from the lung apices to the iliac crests. 3-dimensional maximum intensity projection (MIP) oblique sagittal and coronal reformats were then acquired, and/or 3-dimensional volume rendering reformats. For radiation dose reduction, the following was used: automated exposure control. COMPARISON: None. FINDINGS: Image quality: Excellent. AORTA: No dissection. There is aneurysmal dilation of the ascending of the thoracic aorta, measuring 45 mm. CHEST: Lungs and pleura: There are dependent changes in the bases bilaterally. No pleural effusions or pneumothorax. Central and peripheral airways are patent and normal in caliber. Mediastinum: Heart size is mildy enlarged. No pericardial effusion. No mediastinal or hilar adenopathy by size criteria. Central pulmonary arteries demonstrate enlargement, measuring 33 mm in transverse diameter. Esophagus is normal in caliber. No hiatal hernias. Bones and chest wall: No axillary adenopathy by size criteria. Thyroid gland is unremarkable. No suspicious bony lesions. No vertebral body compression fractures. ABDOMEN: Vasculature: Celiac trunk and mesenteric arteries are patent. Renal arteries are also patent. Solid organs: Liver and spleen are normal in size. Gallbladder is unremarkable. Biliary system is non dilated. Pancreas enhances normally. No adrenal nodules. Both kidneys are normal in size and enhancement, without hydronephrosis. Peritoneum and bowel: No free fluid or air. Bowel loops are normal in caliber and wall thickness. Nodes and vessels: No retroperitoneal or mesenteric adenopathy by size criteria. Inferior vena cava is normal in morphology. Bones: No suspicious bony lesions. No vertebral body compression fractures. Miscellaneous: No ventral hernias. IMPRESSION: 1. Ascending thoracic aortic aneurysmal dilation without dissection. 2. Enlargement of the pulmonary artery suggestive of pulmonary artery hypertension. 3. Cardiomegaly. Dictated by: Elisabeth Grewal M.D. on 10/06/2016 at 13:14 Approved by: Elisabeth Grewal M.D. on 10/06/2016 at 13:25 PROCEDURE: X-RAY CHEST ONE VIEW, PORTABLE ([id number]) INDICATIONS: syncope TECHNIQUE: One view of the chest was acquired. COMPARISON: [facility], CR, XR CHEST 1VW (PORTABLE), 05/25/2016, 12 :41. [facility], CR, XR CHEST 1VW (PORTABLE), 07/03/2016, 5:02. FINDINGS: Surgical changes and devices: None. Lungs and pleura: Patient is rotated, limiting evaluation. There is persistent appearance of patchy left upper lobe opacity which has not significantly changed compared to prior exam. There is persistent, although less prominent appearance of retrocardiac/left basilar opacity. Mediastinum: Mediastinal contours appear normal. Heart size is normal. Bones and chest wall: No suspicious bony lesions. Overlying soft tissues appear unremarkable. IMPRESSION: Left upper lobe and retrocardiac/left basilar opacities as above. As noted, the left upper lobe opacity has not significantly changed compared to 07/03/16. This could represent interval scarring or incompletely treated infection. However, other etiologies such as mass lesion cannot be definitively excluded. Left basilar opacity is likely outbound call center representative of improving, although incompletely resolved infection. Recommend continued interval followup to document resolution. Dictated by: Elisabeth Grewal M.D. on 10/06/2016 at 10:46 Approved by: Elisabeth Grewal M.D. 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 She then fractured her left hip approximate 4 years ago and did not have it repaired. however, patient was not totally bedbound until approximately 1 year ago after she had a CVA with left-sided weakness. Patient has had multiple admissions over the last year including one for severe decubitus ulcers which have been infected with multiple organisms. Patient was cared for by Dr. Calderón and at one point received 2 weeks of IV ertapenem. Patient is also suffering from dementia. As her could no longer care for her patient was transferred to [place] and her decubitus ulcers have been improving. However, today [facility] staff members found her unresponsive for approximately 10 minutes. Patient was transferred to [facility] emergency room where she was evaluated by Dr. Milad Barber. Patient was found to have sepsis from a urinary tract infection and it was believed that this was responsible for her acute encephalopathy. Patient was therefore admitted to the hospital service for further evaluation and treatment. # Acute encephalopathy, present on admission. Improved and appears to be at baseline - This appears to be due to sepsis which appears to be due to a urinary tract infection secondary to gram-negative rods.. - No evidence of decubitus ulcer infection. Tetanus from wound care services saw the patient again today and believes that the cubitus ulcers are healing well. - Appears improved after IV antibiotic therapy in the emergency room.. - Continue to monitor closely. # Urinary tract infection with sepsis secondary to carboplatin and resistant Proteus mirabilis, present at time of admission. Improving - Diphtheroids found on blood culture likely a contaminant - We will continue Rocephin - Dr. Calderón of infectious disease consulted and appreciate his consultation. - We have checked lactic acid levels every 4 hours until normalized. - We will continue gentle hydration with normal saline at 80 mL an hour. I see no benefit in large boluses of IV fluids at this time # Decubitus ulcers, present at the time of admission and have been improving over time - We have asked the wound care team to see the patient in consultation. # Dysphagia, present at the time of admission - Likely exacerbated by the above condition. - We will ask speech therapy to see the patient. # Advance care planning - Palliative care seen the patient on numerous occasions and patient remains a full code. This appears to be due to a lack of understanding the patient and the patient's part. We will try to get further clarification from the patient's daughter Isabell Disposition: The patient will likely be discharged on IV antibiotics for another 10 days to the [facility] tomorrow. Pain Evaluation: Adequate Pain Control GI Prophylaxis: Not indicated VTE Prophylaxis: Sub-Q Enoxaparin Resuscitation Status: CPR: Attempt Resuscitation McgrathBrenton MD Oct 09, 2016 23:33
--- NOTE | 2016-10-09 23:34 | CONS ---
[address] [address] CONSULTATION REPORT PATIENT: RONNA MENDEZ : 1930 MR#: [id number] ADMIT: 10/06/2016 JOB ID: [id number] DATE OF SERVICE: 10/09/[address] Valente Munoz for this timely consult. REASON FOR CONSULTATION: Multi-drug resistant Proteus urinary tract infection causing encephalopathy in an elderly female. HISTORY OF PRESENT ILLNESS: The patient is an 86-year-old woman who emigrated from [place] [facility] as a young woman. 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 She also has a history of colon cancer. In the past, but not recently, has had an indwelling Robbins catheter. I originally saw her in June of this year for septic shock due to Proteus bacteremia. It was clear at that time, that patient had multiple decubitus ulcers, and her overall care had been inadequate following the treatment of her gram-negative Proteus bacteremia, which we thought had arisen either from decubitus and/or from urinary tract infection. The patient was sent to a nursing facility, where she received excellent care and has largely healed her deep decubitus ulcers that had been a feature of her care back in June. More recently, the patient was re-admitted to this facility on October 06 from the detention with report of confusion. She was found to have a leukocytosis as well as ongoing confusion and overall debility. Since admission, the patient has been placed on appropriate antibiotics as well as IV fluids and other measures, and her mental status has improved, basically back to her baseline. She has been carefully evaluated by the wound management team as well. ID consultation at this time is requested regarding the nature of the organism which was found in the urine which we believe was the cause of the UTI that caused the encephalopathy, which led to her admission on October 06. This afternoon, the patient is awake and alert and is conversing and watching the news. She reports, at this point, that she is basically feeling back to baseline. She notes she is quite thin and is trying to eat all the hospital food that she can even though she does not find it terribly appealing. She states she has no fever or chills today. No cough, shortness of breath, chest pain, and no acute GI symptoms such as nausea, vomiting, or diarrhea. She, at this point, is relatively pain free. She states she can walk short distances at the detention with assistance, but her debilitated state makes this sound unlikely unless she receives tremendous assistance. PAST MEDICAL HISTORY: 1. Cerebrovascular accident in August 2015 with subsequent loss of mobility and development of decubitus ulcers. 2. History of colon cancer with prior resection. 3. Hyperlipidemia. 4. History of a bacteremic Proteus urinary tract infection. June 2015. 5. Multiple decubitus ulcers. 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 Until recently, she lived at home with her , but he has suffered a broken hip, and since that time she has been residing in a assisted facility. She is a nonsmoker, nondrinker. FAMILY HISTORY: Positive for gastric carcinoma and suicide. She is not aware of any positive TB history. REVIEW OF SYSTEMS: At this point, the patient has no fevers, chills, sweats, headache, sore throat, cough, chest pain, nausea, vomiting, diarrhea, or dysuria. She no longer has a Robbins catheter. She states she can walk a few steps but is quite weak. Remainder of the review of systems is negative. PHYSICAL EXAMINATION: Physical exam reveals a thin, [place] woman lying supine in her hospital bed. Temperature is 36.9, and she has been afebrile since admission. Pulse 91, respiratory rate 16, blood pressure 142/82. She is saturating well on room air. The patient has some degree of temporal wasting. Her eyes without conjunctivitis. Oral cavity benign. No thrush or hairy leukoplakia. Neck without adenopathy. Lungs clear. Cardiac tones regular rate and rhythm without notable murmur. Abdomen thin, soft, nontender without organomegaly or ascites. She does not have a Robbins catheter nor does she have her rectal tube. Her heels are free of heel ulcerations. Her extremities are quite thin, approaching wasting, but better than when I saw her last time. She has about 3+/5 strength diffusely. No obvious sensory deficits. No significant edema of course of her lower extremities. No skin rashes noted. We examined the patient very carefully with Gold from Wound Management. Her left buttock or upper lateral thigh ulcer that was very significant back in June is completely healed. The one on the right side is much reduced in size and probably between stage II and stage III but much that contracted as compared to prior without any surrounding cellulitis. LABORATORY STUDIES: Labs include white count that 15,000 when she came in, normal ever since, now 4400. Her creatinine is less than 0.3. LFTs completely normal. Albumin 2.5. Procalcitonin has not been done during this admission nor should it be. Micro studies include, from this admission, a urine Proteus mirabilis which is reported as completely resistant to all carbapenems but susceptible to ceftriaxone and cefepime. The ceftriaxone OTILIO is actually reported at less than 1, which is extraordinary. Resistant to gent, Tobra, Bactrim and quinolones. Blood cultures are positive in 1/4 bottles for diphtheroids which are almost certainly contaminants. Looking back at her cultures from her June admission, she had Proteus in a decubitus which was fairly resistant but completely susceptible to carbapenems. It had a ceftriaxone OTILIO less than 1 as well. IMPRESSION: This elderly [place] woman presents with encephalopathy secondary to Proteus urinary tract infection, which is rapidly resolved with ceftriaxone therapy. At this point, she is relatively nontoxic and has received appropriate antibiotics now for three going on four days. We are without any obvious oral agent here which would be of benefit, and I would be inclined to continue with the ceftriaxone once a day for a 10-day course total. The only oral agent which might have a chance of working here would be fosfomycin, but that would be something we would use later in her course perhaps. The most interesting part of this case is the resistance pattern. I have conferred with a colleague of tayo, who is a micro Ph.D. and expert in multi-drug resistant organisms. The reason I called him is because carbapenem-resistant enterobacteriaceae organisms such as this should be resistant to all cephalosporins. He informed me that there is a rare resistance mechanism called OXA-48 which can produce carbapenem resistant enteric gram-negative rods, which are still third generation cephalosporin susceptible. He did state that this was very rare, however, and we should not take this with a grain of salt and ask for additional testing using different methodology. That information not withstanding, the patient has gotten better with ceftriaxone, so we cannot argue with clinical success at this point, and I would be inclined to continue with ceftriaxone barring some other discovery. RECOMMENDATIONS: 1. Will ask for the micro lab to send the Proteus to the [facility] for more specialized testing including an attempt to unravel the mechanism of this organism, which is of great interest. 2. Will continue with ceftriaxone with a plan to continue for 10-14 days. 3. Once the patient is well enough, she can be discharged back to the assisted facility. Parenthetically, it should be mentioned the assisted facility is doing a great job with this difficult patient in healing her decubitus ulcers even without having a colostomy or even a Robbins catheter to simplify the job, and this constitutes really an excellent effort.
--- NOTE | 2016-10-10 05:56 | NUR ---
Uneventful shift Pt slept well all shift, awake briefly to eat several saltine crackers and to have a few ice chips. Pts mepelex dressings remain intact and Pt has been turned side to side several times per her request.
[2016-10-10 06:01] LABS: BASOPHILS % (AUTO) 0.6 % (0-3); EOSINOPHILS % (AUTO) 1.3 % (0-5); MONOCYTES % (AUTO) 9.4 % (4-12); Mean Corpuscular Hemoglobin 30.9 pg (27.0-35.0); Mean Corpuscular Volume 93.6 fL (81-100); NEUTROPHILS % (AUTO) 64.1 % (40-74); Platelet Count 309 bil/L (150-400)
[2016-10-10 06:15] VITALS: BP 150/92; PULSE 79; RESP 16; O2SAT 96
[2016-10-10] MEDS: 0.9% NaCl + KCl 20 mEq/L 1,000 ML IV SCH (06:18)
[2016-10-10 06:21] LABS: Magnesium 1.9 mg/dL (1.6-2.6)
[2016-10-10 08:33] VITALS: BP 160/102; PULSE 85; RESP 16; O2SAT 93
[2016-10-10] MEDS: Potassium Chloride 20 mEq SR Tablet PO SCH (08:38)
[2016-10-10 13:03] VITALS: BP 142/98; PULSE 92; RESP 16; O2SAT 96
--- NOTE | 2016-10-10 13:50 | PCM.DIMED ---
Discharge Instructions Date of Service Oct 10, 2016 Dates of Hospitalization Oct 06, 2016 at 16:27 Discharge Diagnosis Discharge Diagnosis UTI with Sepsis Diet Other (Pureed) Activity Outpatient Physical Therapy Call your provider Fever or Chills, Shortness of breath, Bleeding, Chest pain, Vomitting, Excessive diarrhea, Weakness (unilateral) Patient Instructions Follow-up Provider: Cesar Rush MD Follow-up with PCP in: 1 week Brenton Munoz MD Oct 10, 2016 13:50
[2016-10-10] MEDS ORDERED: SENN-133 PO (13:55)
[2016-10-10] MEDS ORDERED: LOV30 SUBQ (13:55)
[2016-10-10] MEDS ORDERED: CEFT2PIG IV (13:55)
--- NOTE | 2016-10-10 14:17 | PROG NOTE ---
[address] [address] PROGRESS NOTE PATIENT: RONNA MENDEZ : 1930 MR#: [id number] ADMIT: 10/06/2016 JOB ID: [id number] DATE: 10/10/2016 INFECTIOUS DISEASE FOLLOWUP NOTE: REASON FOR FOLLOWUP: Encephalopathy secondary to multi-drug resistant proteus urinary tract infection. INTERVAL HISTORY: Overnight, the patient says she feels much better. She states repeatedly "I eat everything." The nurse's report she is more or less ravenously eating all meals at this point, and the patient tells me she feels back to her normal state of health. She denies fevers, chills, sweats, cough, shortness of breath, or abdominal pain. PHYSICAL EXAMINATION: Reveals an afebrile woman who is much more animated today. She has a temperature of 36.6. She has been afebrile. Pulse 85, respiratory rate 16, blood pressure 160/102. She is in no acute distress and very talkative. Oral cavity negative. Lungs relatively clear. Cardiac tones without significant new murmur. The patient overall is quite thin and her abdominal exam reflects this but it is nontender. No flank tenderness present. LABORATORY DATA: White count 5400. Creatinine 0.3. LFT normal. Albumin 2.8. Recall that urinalysis had 11-50 white cells and grew a proteus which was resistant to carbapenems but sensitive to third and fourth-generation cephalosporins. IMPRESSION: This is an odd case of a woman who presented with encephalopathy due to a complicated urinary tract infection. 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 The [facility] This likely is truly ceftriaxone susceptible, as her white count and other parameters have improved dramatically on this therapy. RECOMMENDATIONS: 1. Will continue with ceftriaxone through October 16 at a dose of 2 g once a day. 2. The patient can be discharged at any time back to the alf facility to complete this therapy. 3. If possible, I would avoid using a central line such as a PICC or other device in this patient who only needs five or six more days of antibiotics. 4. Infectious Disease will go ahead and sign off at this time.
--- NOTE | 2016-10-10 14:23 | NUR ---
Scheduled BLS transport for 1629 via [facility], PCS form completed and given to [facility] PLUG [facility]ER. Updated [facility]ER and [facility] at [facility] Patient also needs to have PICC line in place prior to discharge. Addendum: 10/10/16 at 1554 by VIVIENNE ZAMBRANO Called and put transport on hold. [facility] will just need a call back when patient is ready for apple picker [phone]
--- NOTE | 2016-10-10 14:39 | NUR ---
took over patient care [id number]
[2016-10-10] MEDS: cefTRIAXone 2,000 mg/D5W 50 mL IV Minibag Plus IV SCH ×2 (15:18)
--- NOTE | 2016-10-10 16:25 | NUR ---
Social Work: Discharge Data: Pt is on day 4 of hospitalization. EMR reviewed. D/C orders are in. Nicole [place] notified UR specialist that PICC line must be placed prior to d/c. made order for PICC line, LGSW notified by RN that this should happen this afternoon. BLS transportation set up for 6:00pm. LGSW notified pt's family, RN, UA, MD, all updated and agreeable to plan. No further LGSW needs at this time. LGSW will continue to follow if needs arise. Assessment: Pt from [facility] SNF. Plan: Pt will d/c back to [facility] via BLS at 6:00pm tonight. No further LGSW needs at this time. LGSW will continue to follow if needs arise. CHEPE Duque
--- NOTE | 2016-10-10 18:21 | DRSVH ---
PROCEDURE: X-RAY PICC LINE PLACEMENT BY NURSE ([id number]) INDICATIONS: PICC placement COMPARISON: [facility], CR, XR PICC LINE PLACE BY NURSE, 06/30/2016, 15:12. FINDINGS: PICC was placed by the intravenous therapy team from the right side. Fluoroscopic spot fi lm demonstrates tip of PICC in the SVC. IMPRESSION: Tip of PICC lies within the SVC. Dictated by: Magdalena Jovel M.D. on 10/10/2016 at 18:19 Approved by: Magdalena Jovel M.D. on 10/10/2016 at 18:19
--- NOTE | 2016-10-10 18:22 | NUR ---
TRANSFER TO [facility] Patient transferred to [facility] at 1815 via BLS. Report given to Nicole RN via phone. VSS, Records and documents to accompany patient as well as personal belongings. Patient's family made aware of transfer, patient denies chest pain, shortness of breath and nausea. IV catheter removed intact and PICC placed here prior to departure for continuing antibiotic Tx at [facility].
--- NOTE | 2016-10-11 00:56 | PCM.DC.MED ---
Discharge Summary Date of Service Oct 10, 2016 Dates of Hospitalization Date of Hospital Admission Oct 06, 2016 at 16:27 Date of Discharge: Oct 10, 2016 Providers: Admitting Physician: Brenton Munoz MD Primary Care Physician: Cesar Rush MD Attending Physician: Brenton Munoz MD Diagnosis at Time of Discharge Diagnosis at Time of Discharge UTI with Sepsis Consultations Dr. Gaurang Calderón of infectious disease. Procedures XRay, CTs & MRIs PROCEDURE: CT ANG CHEST/ABD W/WO CONTRAST ([id number]) INDICATIONS: syncope, elevated ddimer TECHNIQUE: Precontrast 5 mm thick sections acquired from the lung apices to the iliac crests. After the administration of intravenous contrast, 3 mm thick sections again acquired from the lung apices to the iliac crests. 3-dimensional maximum intensity projection (MIP) oblique sagittal and coronal reformats were then acquired, and/or 3-dimensional volume rendering reformats. For radiation dose reduction, the following was used: automated exposure control. COMPARISON: None. FINDINGS: Image quality: Excellent. AORTA: No dissection. There is aneurysmal dilation of the ascending of the thoracic aorta, measuring 45 mm. CHEST: Lungs and pleura: There are dependent changes in the bases bilaterally. No pleural effusions or pneumothorax. Central and peripheral airways are patent and normal in caliber. Mediastinum: Heart size is mildy enlarged. No pericardial effusion. No mediastinal or hilar adenopathy by size criteria. Central pulmonary arteries demonstrate enlargement, measuring 33 mm in transverse diameter. Esophagus is normal in caliber. No hiatal hernias. Bones and chest wall: No axillary adenopathy by size criteria. Thyroid gland is unremarkable. No suspicious bony lesions. No vertebral body compression fractures. ABDOMEN: Vasculature: Celiac trunk and mesenteric arteries are patent. Renal arteries are also patent. Solid organs: Liver and spleen are normal in size. Gallbladder is unremarkable. Biliary system is non dilated. Pancreas enhances normally. No adrenal nodules. Both kidneys are normal in size and enhancement, without hydronephrosis. Peritoneum and bowel: No free fluid or air. Bowel loops are normal in caliber and wall thickness. Nodes and vessels: No retroperitoneal or mesenteric adenopathy by size criteria. Inferior vena cava is normal in morphology. Bones: No suspicious bony lesions. No vertebral body compression fractures. Miscellaneous: No ventral hernias. IMPRESSION: 1. Ascending thoracic aortic aneurysmal dilation without dissection. 2. Enlargement of the pulmonary artery suggestive of pulmonary artery hypertension. 3. Cardiomegaly. Dictated by: Elisabeth Grewal M.D. on 10/06/2016 at 13:14 Approved by: Elisabeth Grewal M.D. on 10/06/2016 at 13:25 PROCEDURE: X-RAY CHEST ONE VIEW, PORTABLE ([id number]) INDICATIONS: syncope TECHNIQUE: One view of the chest was acquired. COMPARISON: [facility], CR, XR CHEST 1VW (PORTABLE), 05/25/2016, 12 :41. [facility], CR, XR CHEST 1VW (PORTABLE), 07/03/2016, 5:02. FINDINGS: Surgical changes and devices: None. Lungs and pleura: Patient is rotated, limiting evaluation. There is persistent appearance of patchy left upper lobe opacity which has not significantly changed compared to prior exam. There is persistent, although less prominent appearance of retrocardiac/left basilar opacity. Mediastinum: Mediastinal contours appear normal. Heart size is normal. Bones and chest wall: No suspicious bony lesions. Overlying soft tissues appear unremarkable. IMPRESSION: Left upper lobe and retrocardiac/left basilar opacities as above. As noted, the left upper lobe opacity has not significantly changed compared to 07/03/16. This could represent interval scarring or incompletely treated infection. However, other etiologies such as mass lesion cannot be definitively excluded. Left basilar opacity is likely architectural representative of improving, although incompletely resolved infection. Recommend continued interval followup to document resolution. Dictated by: Elisabeth Grewal M.D. on 10/06/2016 at 10:46 Approved by: Elisabeth Grewal M.D. 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 She then fractured her left hip approximate 4 years ago and did not have it repaired. however, patient was not totally bedbound until approximately 1 year ago after she had a CVA with left-sided weakness. Patient has had multiple admissions over the last year including one for severe decubitus ulcers which have been infected with multiple organisms. Patient was cared for by Dr. Calderón and at one point received 2 weeks of IV ertapenem. Patient is also suffering from dementia. As her could no longer care for her patient was transferred to [facility] and her decubitus ulcers have been improving. However, today [facility] staff members found her unresponsive for approximately 10 minutes. Patient was transferred to [facility] emergency room where she was evaluated by Dr. Milad Barber. Patient was found to have sepsis from a urinary tract infection and it was believed that this was responsible for her acute encephalopathy. Patient was therefore admitted to the hospitalist service for further evaluation and treatment. 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 She then fractured her left hip approximate 4 years ago and did not have it repaired. however, patient was not totally bedbound until approximately 1 year ago after she had a CVA with left-sided weakness. Patient has had multiple admissions over the last year including one for severe decubitus ulcers which have been infected with multiple organisms. Patient was cared for by Dr. Calderón and at one point received 2 weeks of IV ertapenem. Patient is also suffering from dementia. As her could no longer care for her patient was transferred to [facility] and her decubitus ulcers have been improving. However, today [facility] staff members found her unresponsive for approximately 10 minutes. Patient was transferred to [facility] emergency room where she was evaluated by Dr. Milad Barber. Patient was found to have sepsis from a urinary tract infection and it was believed that this was responsible for her acute encephalopathy. Patient was therefore admitted to the hospitalist service for further evaluation and treatment. # Acute encephalopathy, present on admission. Improved and appears to be at baseline - This appears to be due to sepsis which appears to be due to a urinary tract infection secondary to gram-negative rods.. - No evidence of decubitus ulcer infection. Tetanus from wound care services saw the patient again today and believes that the cubitus ulcers are healing well. - Appears improved after IV antibiotic therapy in the emergency room.. - Continue to monitor closely. # Urinary tract infection with sepsis secondary to carboplatin and resistant Proteus mirabilis, present at time of admission. Improving - Diphtheroids found on blood culture likely a contaminant - We will continue Rocephin - Dr. Calderón of infectious disease consulted and appreciate his consultation. - We have checked lactic acid levels every 4 hours until normalized. - We will discontinue hydration with normal saline . # Decubitus ulcers, present at the time of admission and have been improving over time - We have asked the wound care team to see the patient in consultation. # Dysphagia, present at the time of admission - Likely exacerbated by the above condition. - We will ask speech therapy to see the patient. # Advance care planning - Palliative care seen the patient on numerous occasions and patient remains a full code. This appears to be due to a lack of understanding the patient and the patient's part. We will try to get further clarification from the patient's daughter Isabell Disposition: The patient will be discharged to [facility] on IV antibiotics for another 10 days today. Exam Vital Signs (Last) Date Time Temp Pulse Resp B/P Pulse Ox O2 Delivery O2 Flow Rate FiO2 10/10/16 13:03 36.3 92 16 142/98 96 Room Air Exam General: The patient is lying on her right side in no apparent distress. She is pleasantly confused. She remains in good spirits HEENT: Head is atraumatic and normocephalic. Eyes: Pupils are equally round and reactive to light and accommodation. Extraocular muscles are intact. Sclera are white, anicteric. Subconjunctival mucosa is pink. Ears and nose are unremarkable. Oropharynx: There is no mucosal lesions, there is no thrush, there is no pharyngitis. Patient is wearing dentures. Neck: Is supple, there are no nodes, or masses or tenderness. Chest: Is clear to auscultation and percussion. There are no rales, rhonchi, wheezes or rubs. Heart: Rate, rhythm is regular. There is no murmur, rub or gallop. Abdomen: Good bowel sounds are present. Abdomen is soft, nontender, no organomegaly or masses were appreciated. Extremities: Are symmetrical and well perfused. The decubitus ulcers in the malleolar area appear to be healing well the decubitus ulcers on her sacrum appear to be healing well. There is no edema, there is no cellulitis, no rash. Mediflex is been placed on a very small skin breakdown area on the left knee. Neurologic: Cranial nerves II through XII are intact. There is slight weakness of the left upper extremity and paresis of the left lower extremity. Psychiatric: Patients mood is calm and she shows no sign of agitation. Genital: Deferred Rectal: Deferred Test 10/06/16 11:23 10/06/16 13:50 10/07/16 06:25 10/07/16 12:53 D-Dimer 1.34mg/L FEU (<0.50) Troponin T 0.034ug/L (0.0-0.011) Urine Color Yellow (YELLOW) Urine Appearance Slightly cloudy Urine pH 7.5 (5.0-8.0) Urine Specific [place] 1.010 (1.003-1.035) Urine Protein 30mg/dL (NEG,TRACE) Urine Glucose (UA) Negativemg/dL (NEGATIVE) Urine Ketones Negativemg/dL (NEGATIVE) Urine Occult Blood Small (NEGATIVE) Urine Nitrite Negative (NEGATIVE) Urine Bilirubin Negative (NEGATIVE) Urine Urobilinogen Normalmg/dL (NORMAL) Urine Leukocyte Esterase Moderate (NEGATIVE) Urine RBC 0-2/hpf (0-2) Urine WBC 11-50/hpf (0-5) Urine Epithelial Cells Occasional/hpf (NONE-MOD) Urine Crystals Amorphous urates (NONE Urine Bacteria Moderate/hpf (NONE-FEW) Urine Hyaline Casts None/lpf (NONE) Urine Granular Casts None seen (NONE SEEN) Urine Waxy Casts None seen (NONE SEEN) Urine Red Blood Cell Casts None seen (NONE SEEN) Urine White Blood Cell Casts None seen (NONE SEEN) Urine Mucus None seen (None Seen) Urine Trichomonas None seen (NONE SEEN) Urine Yeast None (NONE SEEN) Urinalysis Comment None Urine Culture Reflexed Indicated Prothrombin Time 10.6sec (8.1-12.5) Prothromb Time International Ratio 0.99ratio Phosphorus Level 3.4mg/dL (2.5-4.9) Pro-B-Type Natriuretic Peptide 1659pg/mL (0-738) Thyroid Stimulating Hormone (TSH) 1.300uIU/mL (0.450-4.500) Lactic Acid Level 0.8mmol/L (0.4-2.0) Test 10/09/16 05:05 10/10/16 05:05 Prealbumin 13mg/dL (20-40) White Blood Count 5.4th/mm3 (3.8-10.1) Red Blood Count 3.76mil/mm3 (3.90-5.20) Hemoglobin 11.6g/dL (12.0-15.6) Hematocrit 35.2% (35.0-46.0) Mean Corpuscular Volume 93.6fL (81-100) Mean Corpuscular Hemoglobin 30.9pg (27.0-35.0) Mean Corpuscular Hemoglobin Concent 33.0% (32.0-37.0) Red Cell Distribution Width 19.0% (12.3-15.4) Platelet Count 309bil/L (150-400) Neutrophils (%) (Auto) 64.1% (40-74) Lymphocytes (%) (Auto) 24.2% (14-46) Monocytes (%) (Auto) 9.4% (4-12) Eosinophils (%) (Auto) 1.3% (0-5) Basophils (%) (Auto) 0.6% (0-3) Sodium Level 137mEq/L (134-144) Potassium Level 4.5mEq/L (3.5-5.2) Chloride Level 104mEq/L (97-108) Carbon Dioxide Level 21mmol/L (18-29) Blood Urea Nitrogen 7mg/dL (8-27) Creatinine 0.30mg/dL (0.57-1.00) Estimat Glomerular Filtration Rate 304mL/min (>59) Glucose Level 85mg/dL (60-99) Calcium Level 8.4mg/dL (8.5-10.1) Magnesium Level 1.9mg/dL (1.6-2.6) Total Bilirubin 0.3mg/dL (0.0-1.2) Aspartate Amino Transf (AST/SGOT) 27U/L (0-50) Alanine Aminotransferase (ALT/SGPT) 9U/L (0-32) Alkaline Phosphatase 85U/L (25-165) Total Protein 5.9g/dL (6.4-8.4) Albumin 2.8g/dL (3.4-5.0) Microbiology Results Blood cultures are pending Name: RONNA MENDEZ Age/Sex: 86/F Attend Dr: Brenton Munoz Acct: [id number] Unit: [id number] Status: ADM IN Location: [facility] [place] 3018-1 Re10/06/16 Disch: Specimen: [id number] Collected: 10/06/16-135 Status: RES Req#: [id number] Received: 10/06/161402 Source: URINE CC Sp Desc : PP Amanda Dr: Milad Crenshaw DO Ordered: URINE CULT Procedure Result Verified Site Microbiology OTILIO CULT URINE Preliminary 10/07/16 PRELIMINARY ID GRAM NEGATIVE LUCINDA ID AND SENS TO FOLLOW COLONY COUNT/QUANTITY >100,000 CFU/ml Discharge Medications Discharge Medications ([med plus 2.0]) 120 ML PO TID (Reported) Acetaminophen (Acetaminophen) 325 Mg Tablet 650 MG PO QID (Reported) Carboxymethylcellulose Sodium (Refresh Tears) 15 Ml Drops 1 GTT BOTH_EYES DAILY (Reported) Ceftriaxone Na/Dextrose,Iso (Ceftriaxone 2 gm-D5w Bag) 2 Gm/50 Ml Piggyback 2 GM IV DAILY Prescribed by: STACY MUNOZ MD Diclofenac Sodium (Diclofenac Sodium) 1 % Gel..gram. 1 APPLIC TOP TID (Reported ) Enoxaparin (Lovenox) 30 Mg/0.3 Ml Syringe 30 MG SUBQ HS Prescribed by: STACY MUNOZ MD As needed Acetaminophen (Acetaminophen) 325 Mg Tablet 650 MG PO Q4H PRN PRN For Pain ( Reported) Bisacodyl (Dulcolax Rectal) 10 Mg Supp.rect 10 MG RC DAILY PRN PRN For Constipation (Reported) Magnesium Hydroxide (Milk of Magnesia) 400 Mg/5 Ml Oral.susp 30 ML PO DAILY PRN PRN For Constipation (Reported) Sennosides (Senna) 8.6 Mg Tablet 17.2 MG PO BID PRN PRN For Constipation Prescribed by: STACY MUNOZ MD Followup Plan Disposition: Patient is being discharged back to [facility]. Discharge Diet: Other (Pureed) Discharge Activity: Outpatient Physical Therapy Follow-up Provider: Cesar Rush MD Follow-up with PCP in: 1 week Time spent Time spent on discharging this patient was greater than 35 minutes, over half of which was involved in counseling and coordination of care. Brenton Munoz MD Oct 11, 2016 00:55
== END 2016-10-10 18:35 | disposition home or self-care (01) | DRG 871 ==
LOC: EDUNIT# 08:40 → EDBD 08:40 → SED 08:40 → MPC 16:27
PROVIDERS: ADMIT Internal Medicine Infectious Disease; ATTEND Internal Medicine Infectious Disease
DX: A41.9 Sepsis, unspecified organism (principal); G93.40 Encephalopathy, unspecified; L89.154 Pressure ulcer of sacral region, stage 4; L89.213 Pressure ulcer of right hip, stage 3; R53.2 Functional quadriplegia; J69.0 Pneumonitis due to inhalation of food and vomit; N39.0 Urinary tract infection, site not specified; I69.354 Hemiplegia and hemiparesis following cerebral infarction affecting left non-dominant side; Z74.01 Bed confinement status; E78.5 Hyperlipidemia, unspecified; M17.0 Bilateral primary osteoarthritis of knee; E86.0 Dehydration; F03.90 Unspecified dementia, unspecified severity, without behavioral disturbance, psychotic disturbance, mood disturbance, and anxiety; B96.4 Proteus (mirabilis) (morganii) as the cause of diseases classified elsewhere; Z16.19 Resistance to other specified beta lactam antibiotics